=== PATIENT | male | born 1930 | race Two or more races ===

== ENCOUNTER 2016-11-01 09:54 | Inpatient (IN) | payer OTHER ==
--- NOTE | 2016-11-01 09:58 | PDOC ---
History of Present Illness - General History Source: Patient, EMS, Pharmacist Manager Used (senior quality [id number]) Exam Limitations: No Limitations, Language Barrier (serbian speaking ) - History of Present Illness Initial Comments: 11/01/16 10:40 The patient is a 86 year old serbian speaking male with significant past medical history of copd/asthma (no h/o of admission and/or intubations in the past 3 months), hypertension, hyperlipidemia, CHF, arthritis, GERD, IBS and hypothyroidism who presents to the ED BIBA from home for 3 days of worsening SOB. History was provided via [employer] ([id number]). Patient reports he developed a productive cough with yellowish sputum and sore throat 5 days ago. He developed SOB 3 days ago that worsen yesterday. Patient reports pleuritic chest pain and some epigastric pain when he coughs. He also has complaints of decreased appetite, subjective fever and chills. Denies lightheadedness, diaphoresis, palpitations, leg swelling, nausea, vomiting, or diarrhea. States using his inhaler over the weekend with no relief. Patient was given a albuterol and ipratropium treatment by medics with improvement, but still has some conversational dyspnea. Upon arrival, patient was noted to have a pulse ox of 90 during triage. Patient recently moved to [place] to be closer to his son and his prior medical records are at [facility] in the [facility] where he use to seek medical attention. Allergies: NKDA Social History: No alcohol, tobacco, or drug use reported. Past Surgical History: pacemaker PCP: n/a <Katie Landry - Last Filed: 11/01/16 10:53> <Asia Ozuna - Last Filed: 11/01/16 12:03> - General Stated Complaint: SOB Time Seen by Provider: 11/01/16 09:58 Past History <Katie Landry - Last Filed: 11/01/16 10:53> <Asia Ozuna - Last Filed: 11/01/16 12:03> - Past Medical History Allergies/Adverse Reactions: Allergies Allergy/AdvReac Type Severity Reaction Status Date / Time No Known Allergies Allergy Unverified 11/01/16 10:10 Home Medications: Ambulatory Orders Albuterol Sulfate Inhaler - [Ventolin Hfa Inhaler -] 1 - 2 inh PO QID PRN Amlodipine Besylate [Norvasc -] 10 mg PO DAILY 11/01/16 Furosemide [Lasix] 20 mg PO DAILY 11/01/16 Gabapentin 100 mg PO DAILY 11/01/16 Ibuprofen/Famotidine [Duexis 800-26.6 mg Tablet] 1 each PO DAILY 11/01/16 Levothyroxine [Synthroid -] 25 mcg PO DAILY 11/01/16 Montelukast Na [Singulair -] 10 mg PO HS 11/01/16 Ramipril 10 mg PO DAILY 11/01/16 Ranitidine HCl [Zantac] 150 mg PO DAILY 11/01/16 Salmeterol/Fluticasone [Advair 250Mcg/50Mcg -] 1 inh IH BID 11/01/16 Simvastatin 10 mg PO DAILY 11/01/16 Review of Systems - Review of Systems Able to Perform ROS?: Yes Comments:: 11/01/16 10:40 GENERAL/CONSTITUTIONAL: +subjective fever, chills, decreased appetite No weakness. HEAD, EYES, EARS, NOSE AND THROAT: No change in vision. No ear pain or discharge. No sore throat. CARDIOVASCULAR: +pleuritic chest pain, shortness of breath RESPIRATORY: +productive cough with yellow sputum No hemoptysis. GASTROINTESTINAL: epigastric pain No nausea, vomiting, diarrhea or constipation. GENITOURINARY: No dysuria, frequency, or change in urination. MUSCULOSKELETAL: No joint or muscle swelling or pain. No neck or back pain. SKIN: No rash NEUROLOGIC: No headache, vertigo, loss of consciousness, or change in strength/ sensation. ENDOCRINE: No increased thirst. No abnormal weight change. HEMATOLOGIC/LYMPHATIC: No anemia, easy bleeding, or history of blood clots. ALLERGIC/IMMUNOLOGIC: No hives or skin allergy. <Katie Landry - Last Filed: 11/01/16 10:53> *Physical Exam - Vital Signs Last Vital Signs Temp Pulse Resp BP Pulse Ox 98.7 F 101 H 24 143/73 92 L 11/01/16 10:02 11/01/16 10:02 11/01/16 10:02 11/01/16 10:02 11/01/16 10:02 - Physical Exam Comments: 11/01/16 10:40 GENERAL: Awake, alert, and fully oriented, in no acute distress HEAD: No signs of trauma EYES: PERRLA, EOMI, sclera anicteric, conjunctiva clear ENT: Auricles normal inspection, hearing grossly normal, nares patent, oropharynx clear without exudates. Posterior pharynx slightly erythematous, no exudates. NECK: Normal ROM, supple, no lymphadenopathy, JVD, or masses LUNGS: Mild respiratory distress. Conversational dyspnea. Wheezing diffusely. Rhonchi on left. Accessory muscle use. HEART: Regular rate and rhythm, normal S1 and S2, no murmurs, rubs or gallops ABDOMEN: Soft, nontender, normoactive bowel sounds. No guarding, no rebound. No masses EXTREMITIES: Normal range of motion, no edema. No clubbing or cyanosis. No cords, erythema, or tenderness NEUROLOGICAL: Cranial nerves II through XII grossly intact. Normal speech, normal gait SKIN: Warm, Dry, normal turgor, no rashes or lesions noted. Normal capillary refill. <Katie Landry - Last Filed: 11/01/16 10:53> Heart Score/ECG Review - ECG Intrepretation Comment:: 11/01/16 11:13 sinus at 81 w 1st degree av block, q waves anteriorly that are age indeterminate , no acute st/t wave findings <Asia Ozuna - Last Filed: 11/01/16 12:03> ED Treatment Course - RADIOLOGY Radiograph Interpretation: 11/01/16 10:54 RAD/CHEST X-RAY PORTABLE Radiologist's Impression: Right lower lung consolidation. No effacement of the right diaphragm blunting of the right costophrenic angle. Unremarkable contour of the cardiomediastinal silhouette. No airspace opacities are seen in the left lung. Left pacemaker with 2 intact leads. No evidence of pneumothorax, or large pleural effusion. Vascular congestive changes noted in the right lung. Impression. Right lower lobe consolidation. Congestive changes - right lung. No pneumothorax, or large pleural effusion is seen - Medications Given in the ED: ED Medications Discontinued Medications Generic Name Dose Route Start Last Admin Trade Name Freq PRN Reason Stop Dose Admin Albuterol/Ipratropium 1 amp 11/01/16 10:17 11/01/16 10:24 Duoneb - NEB 11/01/16 10:18 1 amp ONCE ONE Administration Methylprednisolone Sodium Succinate 125 mg 11/01/16 10:17 11/01/16 10:36 Solu-Medrol - IVPB 11/01/16 10:18 125 mg ONCE ONE Administration Sodium Chloride 1,000 ml 11/01/16 10:18 11/01/16 10:36 Normal Saline - IV 11/01/16 10:19 1,000 ml ONCE ONE Administration <Katie Landry - Last Filed: 11/01/16 10:53> - LABORATORY CBC & Chemistry Diagram: 11/01/16 10:36 11/01/16 10:36 <Asia Ozuna - Last Filed: 11/01/16 12:03> Medical Decision Making - Medical Decision Making 11/01/16 11:05 a/p: 86yo male with 5 days of cough/wheezing/sob -concern for asthma exacerbation assoc with pna -no recent hospitalizations in 90 days -will send labs, cultures -xray -court monitor -ekg -will start abx for cap -pt will need admission given hypoxia on RA and new need for o2. -abg 11/01/16 11:07 pt with RLL consolidation- abx started family at the bedside and updated on status -pt updated on status and agrees to stay 11/01/16 11:08 pt with hypoxemia on abg - will give another neb and continue supplemental o2 11/01/16 1130 pt with RLL infiltrate, hypoxemia, elevated WBC, resp distress will need admission. call placed to the hospitalist 11/01/16 12:00 case discussed with hospitalist, accepts pt to service under Dr. Barker to tele <Asia Ozuna - Last Filed: 11/01/16 12:03> *DC/Admit/Observation/Transfer - Attestations Scribe Attestion: 11/01/16 10:40 Documentation prepared by Katie Landry, acting as medical records auditor for Asia Ozuna DO, MD/. <Katie Landry - Last Filed: 11/01/16 10:53> - Discharge Dispostion Admit: Yes - Attestations Physician Attestion: 11/01/16 11:09 I, Dr. Asia Ozuna DO, attest that this document has been prepared under my direction and personally reviewed by me in its entirety. I further attest, that it accurately reflects all work, treatment, procedures and medical decision -making performed by me. <Asia Ozuna - Last Filed: 11/01/16 12:03> Diagnosis at time of Disposition: Asthma exacerbation, Hypoxemia Pneumonia Qualifiers: Pneumonia type: due to unspecified organism Laterality: right Lung location: lower lobe of lung Qualified Code(s): J18.1 - Lobar pneumonia, unspecified organism - Discharge Dispostion Condition at time of disposition: Guarded - Referrals Referrals: STAFF,NOT ON [Primary Care Provider] -
[2016-11-01] MEDS ORDERED: ALBUTEROL SO4 2.5/IPRATROPIUM 0.5 INH SOL 3 ML VIAL.NEB. NEB ONE ×3 (10:06→11:14)
[2016-11-01] MEDS ORDERED: methylPREDNISolone NA SUCC 125 MG/2 ML VIAL IVPB ONE (10:17)
[2016-11-01] MEDS ORDERED: SODIUM CHLORIDE 0.9% 1000 ML INFUS.BAG IV ONE (10:18)
[2016-11-01] MEDS ORDERED: methylPREDNISolone NA SUCC 125 MG/2 ML VIAL ONE (10:26)
[2016-11-01] MEDS ORDERED: AZITHROMYCIN IVPB 500 MG in DEXTROSE 5%-WATER - 250 ML IVPB ONE (10:46)
[2016-11-01 10:52] LABS: ARTERIAL BLD GAS O2 SATURATION 90.9 % (90-98.9); ARTERIAL BLOOD GAS BASE EXCESS 0.9 meq/l (-2-2); ARTERIAL BLOOD GAS pH 7.49 (7.35-7.45)
[2016-11-01 10:53] LABS: ARTERIAL BLOOD GAS PO2 58.5 mmHg (68-100)
[2016-11-01 10:54] LABS: ALLENS TEST POSITIVE; ART PUNCT SITE RIGHT RADIAL; LPM/O2% 21%; METHEMOGLOBIN 0.7 % (0.4-1.5); PT. ON O2? NO
[2016-11-01] MEDS ORDERED: AZITHROMYCIN IVPB 250 ML IVPB ONE (10:55)
[2016-11-01 11:00] LABS: BASOPHIL 0.1 % (0-2.0); EOSINOPHIL 0.2 % (0-4.5); MCH 29.2 pg (25.7-33.7); MCHC 33.3 g/dl (32.0-35.9); MEAN CELL VOLUME 87.7 fl (80-96); MEAN PLT VOLUME 6.9 fl (7.5-11.1); NEUTROPHILS 88.5 % (42.8-82.8); PLATELET COUNT 283 K/MM3 (134-434); WHITE BLOOD COUNT 16.2 K/mm3 (4.0-10.0)
[2016-11-01 11:26] LABS: ALBUMIN 3.3 g/dl (3.4-5.0); ANION GAP 12 (8-16); CALCIUM 8.7 mg/dL (8.5-10.1); CO2 25 mmol/L (21-32); GLUCOSE,RANDOM 97 mg/dL (74-106); SGOT/AST 20 U/L (15-37); SGPT/ALT 19 U/L (12-78)
[2016-11-01 11:32] LABS: ALK PHOS 76 U/L (45-117); CPK 56 IU/L (39-308); TOT PROT 6.6 g/dl (6.4-8.2); TROPONIN I < 0.02 ng/ml (0.00-0.05)
--- NOTE | 2016-11-01 12:39 | HP ---
CHIEF COMPLAINT: Shortness of breath PCP: Dr. Molnia ([facility]) HISTORY OF PRESENT ILLNESS: This is an 86 year old male with a history of asthma /COPD (never hospitalized, on daily Advair and Singulair), PPM (?heart block?, patient states he was having "slow heart rate and dizziness" prior to placement) , and HTN who presents complaining of worsening shortness of breath and productive cough since Sunday. ER course was notable for: (1) CXR: RLL consolidation, vascular congestive changes (2) WBC 16.2 (3) Hypoxic respiratory failure with respiratory alkalosis (ABG on 2L O2 7.49/ 30.5/58.5/23) (4) Na 127 Recent Travel: None PAST MEDICAL HISTORY: As above PAST SURGICAL HISTORY: Pacemaker placement June 2016 Social History: Lives alone, independent in ADLs. Retired tailor from the [employer] Smoking: Former "heavy smoker", quit 30 yrs ago Alcohol: Social Drugs: None Family History: Non-contributory to this admission Allergies No Known Allergies Allergy (Unverified 11/01/16 10:10) HOME MEDICATIONS: Home Medications Medication Instructions Recorded Albuterol Sulfate Inhaler - 1 - 2 inh PO QID PRN 11/01/16 [Ventolin Hfa Inhaler -] Amlodipine Besylate [Norvasc -] 10 mg PO DAILY 11/01/16 Furosemide [Lasix] 20 mg PO DAILY 11/01/16 Gabapentin 100 mg PO DAILY 11/01/16 Ibuprofen/Famotidine [Duexis 1 each PO DAILY 11/01/16 800-26.6 mg Tablet] Levothyroxine [Synthroid -] 25 mcg PO DAILY 11/01/16 Montelukast Na [Singulair -] 10 mg PO HS 11/01/16 Ramipril 10 mg PO DAILY 11/01/16 Ranitidine HCl [Zantac] 150 mg PO DAILY 11/01/16 Salmeterol/Fluticasone [Advair 1 inh IH BID 11/01/16 250Mcg/50Mcg -] Simvastatin 10 mg PO DAILY 11/01/16 REVIEW OF SYSTEMS CONSTITUTIONAL: Generalized weakness, malaise, loss of appetite Absent: fever, chills, weight change HEENT: Absent: rhinorrhea, nasal congestion, throat pain, throat swelling, difficulty swallowing, mouth swelling, ear pain, eye pain, visual changes CARDIOVASCULAR: Chest pain with coughing only Absent: chest pain, syncope, palpitations, irregular heart rate, lightheadedness , peripheral edema RESPIRATORY: Productive cough, wheezing, shortness of breath since Sunday Absent: stridor, hemoptysis GASTROINTESTINAL: Diffuse abdominal pain Absent: nausea, vomiting, diarrhea, constipation, melena, hematochezia GENITOURINARY: Absent: dysuria, frequency, urgency, hesitancy, hematuria, flank pain, genital pain MUSCULOSKELETAL: Absent: myalgia, arthralgia, joint swelling, back pain, neck pain SKIN: Absent: rash, itching, pallor HEMATOLOGIC/IMMUNOLOGIC: Absent: easy bleeding, easy bruising, lymphadenopathy, frequent infections ENDOCRINE: Absent: unexplained weight gain, unexplained weight loss, heat intolerance, cold intolerance NEUROLOGIC: Absent: headache, focal weakness or paresthesias, dizziness, unsteady gait, seizure, mental status changes, bladder or bowel incontinence PSYCHIATRIC: Absent: anxiety, depression, suicidal or homicidal ideation, hallucinations. PHYSICAL EXAMINATION GENERAL: Awake, alert, and fully oriented, in no acute distress. EYES: Pupils equal, round and reactive to light, extraocular movements intact, sclera anicteric, conjunctiva clear. No lid lag. EARS, NOSE, THROAT: Ears normal, nares patent, oropharynx clear without exudates. Moist mucous membranes. NECK: Normal range of motion, supple without lymphadenopathy, JVD, or masses. LUNGS: Tachypneic without accessory muscle use. Diffuse expiratory wheezing with poor air entry bilaterally. HEART: Regular rate and rhythm, normal S1 and S2 without murmur, rub or gallop. ABDOMEN: Soft, nontender, not distended, normoactive bowel sounds, no guarding, no rebound, no masses. No hepatomegaly or splenomegaly. MUSCULOSKELETAL: Normal range of motion at all joints. No bony deformities or tenderness. No CVA tenderness. UPPER EXTREMITIES: 2+ pulses, warm, well-perfused. No cyanosis. No clubbing. No peripheral edema. LOWER EXTREMITIES: 2+ pulses, warm, well-perfused. No calf tenderness. No peripheral edema. NEUROLOGICAL: Cranial nerves II-XII intact. Normal speech. Normal gait. PSYCHIATRIC: Cooperative. Good eye contact. Appropriate mood and affect. SKIN: Warm, dry, normal turgor, no rashes or lesions noted, normal capillary refill. ASSESSMENT/PLAN: 86 year old male with hypoxemic respiratory failure secondary to asthma/COPD exacerbation with RLL PNA. Problem List - Problem (1) Asthma exacerbation Assessment/Plan: -Supplemental O2 as needed -Continue standing DuoNebs -Solu-Medrol 40mg IVPB q8h, taper as tolerated -Continue Singulair -Pulmonary evaluation Code(s): J45.901 - UNSPECIFIED ASTHMA WITH (ACUTE) EXACERBATION (2) Pneumonia Assessment/Plan: -Community-acquired -Ceftriaxone/Azithromycin -Urine antigens -Sputum culture -Follow up blood cultures Code(s): J18.9 - PNEUMONIA, UNSPECIFIED ORGANISM Qualifiers: Pneumonia type: due to unspecified organism Laterality: right Lung location: lower lobe of lung Qualified Code(s): J18.1 - Lobar pneumonia, unspecified organism (3) Abdominal pain Assessment/Plan: -Diffuse pain, no focal tenderness, no change in bladder or bowel habits -Consider CTAP when bronchospasm improved Code(s): R10.9 - UNSPECIFIED ABDOMINAL PAIN (4) HTN (hypertension) Assessment/Plan: -At goal -Continue Norvasc Code(s): I10 - ESSENTIAL (PRIMARY) HYPERTENSION (5) Acute exacerbation of CHF (congestive heart failure) Assessment/Plan: -Increase Lasix to 20mg IVP daily -Strict I/O -Daily weights Code(s): I50.9 - HEART FAILURE, UNSPECIFIED (6) Hyponatremia Assessment/Plan: -Suspect hypervolemic -Send serum osmolality -Lasix as above Code(s): E87.1 - HYPO-OSMOLALITY AND HYPONATREMIA (7) DVT prophylaxis Assessment/Plan: -Lovenox 40mg sq daily -Early ambulation Code(s): [id number] - Visit type - Emergency Visit Emergency Visit: Yes ED Registration Date: 11/01/16 Care time: The patient presented to the Emergency Department on the above date and was hospitalized for further evaluation of their emergent condition. - New Patient This patient is new to me today: Yes Date on this admission: 11/01/16 - Critical Care Critical Care patient: No
[2016-11-01] MEDS ORDERED: CEFTRIAXONE 50 ML ONE (12:52)
[2016-11-01] MEDS ORDERED: ACETAMINOPHEN WITH CODEINE 300MG/30MG TABLET PO ONE (13:02)
[2016-11-01] MEDS: FUROSEMIDE 40 MG/4 ML INJECTABLE VIAL IVPUSH SCH (13:13)
[2016-11-01] MEDS: CEFTRIAXONE 1 GM in DEXTROSE 5%-WATER - 50 ML IVPB SCH (13:13)
[2016-11-01] MEDS ORDERED: ONDANSETRON 4 MG/2 ML VIAL IVPB PRN (13:17)
[2016-11-01] MEDS ORDERED: ACETAMINOPHEN 325 MG TABLET (FP) PO PRN (13:17)
[2016-11-01] MEDS: ALBUTEROL SO4 2.5/IPRATROPIUM 0.5 INH SOL 3 ML VIAL.NEB. NEB SCH ×3 (14:00→22:05)
[2016-11-01 14:03] VITALS: BMI 26.2
[2016-11-01] MEDS ORDERED: ACETAMINOPHEN WITH CODEINE 300MG/30MG TABLET ONE (14:03)
--- NOTE | 2016-11-01 14:57 | EKG ---
Test Reason : Blood Pressure : / mmHG Vent. Rate : 081 BPM Atrial Rate : 094 BPM P-R Int : 262 ms QRS Dur : 080 ms QT Int : 340 ms P-R-T Axes : 088 031 045 degrees QTc Int : 394 ms SINUS RHYTHM WITH MARKED SINUS ARRHYTHMIA WITH 1ST DEGREE A-V BLOCK ANTEROSEPTAL INFARCT , AGE UNDETERMINED ABNORMAL ECG NO PREVIOUS ECGS AVAILABLE Confirmed by ELIER MEDEIROS MD ([id number]) on 11/01/2016 2:56:53 PM Referred By: Confirmed By:ELIER MEDEIROS MD
[2016-11-01] MEDS: methylPREDNISolone NA SUCC 40 MG/1 ML VIAL IVPB SCH (17:47)
[2016-11-01] MEDS ORDERED: PATIENT'S OWN MEDICATION (NON-FORMULARY) (Salmeterol/Fluticasone [Advair 250mcg/50mcg -] 1 IH SCH (22:00)
[2016-11-01] MEDS ORDERED: BUDESONIDE/FORMETEROL FUMARATE 80/4.5 mcg INHALER IH SCH (22:00)
[2016-11-01] MEDS: MONTELUKAST NA 10 MG TABLET PO SCH (22:41)
[2016-11-02] MEDS: methylPREDNISolone NA SUCC 40 MG/1 ML VIAL IVPB SCH ×3 (00:59→17:09)
[2016-11-02] MEDS: ALBUTEROL SO4 2.5/IPRATROPIUM 0.5 INH SOL 3 ML VIAL.NEB. NEB SCH ×6 (01:40→22:10)
[2016-11-02] MEDS: LEVOTHYROXINE NA 25 MCG TABLET (FP) PO SCH (06:01)
[2016-11-02 08:15] LABS: MCH 29.2 pg (25.7-33.7); MCHC 34.1 g/dl (32.0-35.9); MEAN CELL VOLUME 85.8 fl (80-96); MEAN PLT VOLUME 6.9 fl (7.5-11.1); PLATELET COUNT 274 K/MM3 (134-434); RDW 13.8 % (11.9-15.9); WHITE BLOOD COUNT 17.1 K/mm3 (4.0-10.0)
[2016-11-02 09:09] LABS: ALK PHOS 71 U/L (45-117); ANION GAP 13 (8-16); BILIRUBIN,TOTAL 0.6 mg/dL (0.2-1.0); CALCIUM 8.8 mg/dL (8.5-10.1); CO2 23 mmol/L (21-32); GLUCOSE,RANDOM 170 mg/dL (74-106); SGOT/AST 19 U/L (15-37); SGPT/ALT 21 U/L (12-78); TOT PROT 6.4 g/dl (6.4-8.2)
[2016-11-02] MEDS ORDERED: FUROSEMIDE 20 MG TABLET (FP) PO SCH (10:00)
[2016-11-02] MEDS ORDERED: DEXTROSE 5%-WATER - 50 ML IVPB ONE (10:28)
[2016-11-02] MEDS ORDERED: cefTRIAXone SODIUM 1 GM VIAL ONE (10:28)
[2016-11-02] MEDS: RANITIDINE HCL 150 MG TABLET (FP) PO SCH (10:36)
[2016-11-02] MEDS: GABAPENTIN 100 MG CAPSULE (FP) PO SCH (10:36)
[2016-11-02] MEDS: RAMIPRIL 5 MG CAPSULE (FP) PO SCH (10:36)
[2016-11-02] MEDS: FUROSEMIDE 40 MG/4 ML INJECTABLE VIAL IVPUSH SCH (10:36)
[2016-11-02] MEDS: ENOXAPARIN NA (PORCINE) 40 MG/0.4 ML DISP.SYRIN SQ SCH (10:36)
[2016-11-02] MEDS: amLODIPine BESYLATE 10 MG TABLET (FP) PO SCH (10:36)
[2016-11-02] MEDS: AZITHROMYCIN IVPB 250 MG in DEXTROSE 5%-WATER - 250 ML IVPB SCH (10:37)
[2016-11-02] MEDS: CEFTRIAXONE 1 GM in DEXTROSE 5%-WATER - 50 ML IVPB SCH (10:37)
--- NOTE | 2016-11-02 11:27 | CON.PULM ---
Consult Consult Specialty:: PULMONARY Referred by:: KULWANT Altman Reason for Consultation:: shortness of breath - History of Present Illness Chief Complaint: shortness of breath History of Present Illness: 86yo male with h/o HTN, hyperlipidemia, COPD/asthma, CHF, GERD, IBS, hypothyroidism who was admitted with worsening shortness of breath x 3 days. He reports a cough productive of yellow sputum but denies wheezing. No chest pain or palpitations. No nausea, vomiting or diarrhea. No leg swelling. Found to be hyponatremic and with a RLL infiltrate on CXR. He is a remote smoker, quit 35 years ago and is maintained on Advair, Singulair and Ventolin. - History Source History Provided By: Patient, Medical Record Limitations to Obtaining History: Language Barrier - Past Medical History Cardio/Vascular: Yes: CHF, HTN, Hyperlipdemia Pulmonary: Yes: Asthma, COPD Gastrointestinal: Yes: Inflamatory Bowel Disease Endocrine: Yes: Hypothyroidism - Alcohol/Substance Use Hx Alcohol Use: No - Smoking History Smoking history: Former smoker Have you smoked in the past 12 months: No Home Medications - Allergies Allergies/Adverse Reactions: Allergies Allergy/AdvReac Type Severity Reaction Status Date / Time No Known Allergies Allergy Unverified 11/01/16 10:10 - Home Medications Home Medications: Ambulatory Orders Albuterol Sulfate Inhaler - [Ventolin Hfa Inhaler -] 1 - 2 inh PO QID PRN Amlodipine Besylate [Norvasc -] 10 mg PO DAILY 11/01/16 Furosemide [Lasix] 20 mg PO DAILY 11/01/16 Gabapentin 100 mg PO DAILY 11/01/16 Ibuprofen/Famotidine [Duexis 800-26.6 mg Tablet] 1 each PO DAILY 11/01/16 Levothyroxine [Synthroid -] 25 mcg PO DAILY 11/01/16 Montelukast Na [Singulair -] 10 mg PO HS 11/01/16 Ramipril 10 mg PO DAILY 11/01/16 Ranitidine HCl [Zantac] 150 mg PO DAILY 11/01/16 Salmeterol/Fluticasone [Advair 250Mcg/50Mcg -] 1 inh IH BID 11/01/16 Simvastatin 10 mg PO DAILY 11/01/16 Review of Systems - Review of Systems Constitutional: denies: Chills, Fever Eyes: denies: Recent Change in Vision HENT: denies: Nasal Congestion, Throat Pain Neck: denies: Stiffness, Tenderness Cardiovascular: reports: Shortness of Breath. denies: Chest Pain, Edema, Palpitations Respiratory: reports: Cough. denies: Hemoptysis, Wheezing Gastrointestinal: denies: Abdominal Pain, Diarrhea, Vomiting Genitourinary: denies: Dysuria, Hematuria Neurological: denies: Dizziness, Headache Endocrine: denies: Unexplained Weight Loss Physical Exam Vital Sings: Vital Signs Temperature 98.2 F 11/02/16 08:15 Pulse Rate 76 11/02/16 08:15 Respiratory Rate 16 11/02/16 08:15 Blood Pressure 114/68 11/02/16 08:15 O2 Sat by Pulse Oximetry (%) 96 11/01/16 20:49 Constitutional: Yes: Calm Eyes: Yes: Conjunctiva Clear, EOM Intact HENT: Yes: Atraumatic, Normocephalic Neck: Yes: Supple, Trachea Midline Cardiovascular: Yes: Regular Rate and Rhythm Respiratory: Yes: Rales (right base), Rhonchi, Wheezes ...Clubbing: No Gastrointestinal: Yes: Normal Bowel Sounds, Soft. No: Tenderness Edema: No Neurological: Yes: Alert, Oriented Labs: CBC, BMP 11/02/16 07:00 11/02/16 07:00 ABG Results ABG pH 7.49 (7.35-7.45) H 11/01/16 10:50 ABG pCO2 at Pt Temp 30.5 mmHg (35-45) L 11/01/16 10:50 ABG pO2 at Pt Temp 58.5 mmHg (68-100) L 11/01/16 10:50 ABG HCO3 23.0 meq/L (22-26) 11/01/16 10:50 ABG O2 Sat (Measured) 90.9 % (90-98.9) 11/01/16 10:50 ABG O2 Content 16.5 % vol (15-22) 11/01/16 10:50 ABG Base Excess 0.9 meq/l (-2-2) 11/01/16 10:50 Imaging - Results Chest X-ray: Report Reviewed, Image Reviewed (RLL infiltrate) Problem List - Problems (1) Pneumonia Code(s): J18.9 - PNEUMONIA, UNSPECIFIED ORGANISM Qualifiers: Pneumonia type: due to unspecified organism Laterality: right Lung location: lower lobe of lung Qualified Code(s): J18.1 - Lobar pneumonia, unspecified organism (2) Asthma exacerbation Code(s): J45.901 - UNSPECIFIED ASTHMA WITH (ACUTE) EXACERBATION (3) COPD exacerbation Code(s): J44.1 - CHRONIC OBSTRUCTIVE PULMONARY DISEASE W (ACUTE) EXACERBATION (4) CHF (congestive heart failure) Code(s): I50.9 - HEART FAILURE, UNSPECIFIED (5) HTN (hypertension) Code(s): I10 - ESSENTIAL (PRIMARY) HYPERTENSION (6) Hyponatremia Code(s): E87.1 - HYPO-OSMOLALITY AND HYPONATREMIA Assessment/Plan Pneumonia Acute Asthma/COPD Exacerbation Hyponatremia HTN CHF Hyperlipidemia Hypothyroidism - agree with antibiotic coverage - f/u cultures - medrol at current dose - inhaled bronchodilators standing and PRN - O2 to keep SpO2 >90% - lasix - monitor urine output, creatinine - send serum osms, urine lytes - DVT prophylaxis Thank you for this consult Hernandez Lopez MD
[2016-11-02] MEDS ORDERED: SODIUM CHLORIDE 1,000 ML IV STA (13:25)
--- NOTE | 2016-11-02 14:27 | PN ---
Teaching Attending Note Name of Resident: Angel Zimmerman ATTENDING PHYSICIAN STATEMENT I saw and evaluated the patient. I reviewed the resident's note and discussed the case with the resident. I agree with the resident's findings and plan as documented. SUBJECTIVE:states breathing is improved but still has dyspnea. has nonproductive cough. abdominal pain resolved. denies recent travel or changes to medications. never been hospitalized OBJECTIVE: Last Vital Signs Temp Pulse Resp BP Pulse Ox 98.2 F 76 16 114/68 96 11/02/16 08:15 11/02/16 08:15 11/02/16 09:00 11/02/16 08:15 11/02/16 09:00 General NAD, dehydrated CV S1 S2 RRR no murmur/rub/gallop Lungs diffuse wheezing decreased inspiratory effort Abdomen soft NT/ND Extremities no pedal edema ASSESSMENT AND PLAN: 86yo M with PMH COPD, hypothyroid, PPM and HTN presented to the ER with SOB 1. Sepsis due to RLL PNA- clinically improved. concern for legionella ( abdominal pain and hyponatremia) no risk factors. on Ceftriaxone/Azithromycin day 2. nebs prn f/u Cx, legionella ag 2. Acute hypoxic respiratory distress- due to PNA and COPD exacerbation. currently saturating 98% on RA. on medrol 40mg Q8H, cont current steroid dosing at this time. inhalers and nebs. supplemental oxygen as needed. pulmonary on board 3. Hyponatremia- clinically appears dehydrated. appeared volume overloaded on admission and was given lasix. give 1 L NS bolus. will repeat labs. check serum osm 4. HTN- controlled. cont ramipril and norvasc 5. hypothyroid- cont LT4 6. DVT ppx- lovenox
--- NOTE | 2016-11-02 15:58 | PN ---
Physical Exam: SUBJECTIVE: Patient seen and examined at bedside. Patient states that he feels better today than he did yesterday, but still complains of shortness of breath today. OBJECTIVE: Vital Signs Period Temp Pulse Resp BP Sys/Dumont Pulse Ox Last 24 Hr 97.1 F-98.2 F 76-90 16-20 114-150/56-68 96-96 GENERAL: The patient is awake, alert, and fully oriented, in no acute distress. HEAD: Normal with no signs of trauma. EYES: extraocular movements intact, sclera anicteric, conjunctiva clear. No ptosis. NECK: Trachea midline, full range of motion, supple. LUNGS: Breath sounds equal, clear to auscultation bilaterally, no wheezes, no crackles, no accessory muscle use. HEART: Regular rate and rhythm, S1, S2 without murmur, rub or gallop. ABDOMEN: Soft, nontender, nondistended, normoactive bowel sounds, no guarding, no rebound. EXTREMITIES: 2+ pulses, warm, well-perfused, no edema. NEUROLOGICAL: Cranial nerves II through X grossly intact. Normal speech, gait not observed. PSYCH: Normal mood, normal affect. SKIN: Warm, dry, normal turgor, no rashes or lesions noted Laboratory Results - last 24 hr 11/01/16 11/02/16 11/02/16 16:45 07:00 07:00 WBC 17.1 H RBC 4.12 Hgb 12.0 Hct 35.3 L MCV 85.8 MCH 29.2 MCHC 34.1 RDW 13.8 Plt Count 274 MPV 6.9 L Neutrophils % 95.0 H Lymphocytes % 2.9 L D Monocytes % 2.1 L Eosinophils % 0.0 D Basophils % 0.0 Sodium 124 L* Potassium 4.0 Chloride 88 L Carbon Dioxide 23 Anion Gap 13 BUN 22 H D Creatinine 1.0 Creat Clearance w eGFR > 60 Random Glucose 170 H D Serum Osmolality 278 Calcium 8.8 Magnesium 2.0 Total Bilirubin 0.6 D AST 19 ALT 21 Alkaline Phosphatase 71 Total Protein 6.4 Albumin 3.0 L Active Medications Generic Name Dose Route Start Last Admin Trade Name Freq PRN Reason Stop Dose Admin Acetaminophen 650 mg 11/01/16 13:17 Tylenol - PO Q4H PRN FEVER OR PAIN Albuterol/Ipratropium 1 amp 11/01/16 13:15 11/02/16 13:56 Duoneb - NEB 1 amp Q4H ANA M Administration Amlodipine Besylate 10 mg 11/02/16 10:00 11/02/16 10:36 Norvasc - PO 10 mg DAILY ANA M Administration Atorvastatin Calcium 10 mg 11/02/16 22:00 Lipitor - PO HS ANA M Enoxaparin Sodium 40 mg 11/02/16 10:00 11/02/16 10:36 Lovenox - SQ 40 mg DAILY ANA M Administration Furosemide 20 mg 11/03/16 10:00 Lasix - PO DAILY ANA M Gabapentin 100 mg 11/02/16 10:00 11/02/16 10:36 Neurontin - PO 100 mg DAILY ANA M Administration Ceftriaxone Sodium 1 gm/ 50 mls @ 100 mls/hr 11/01/16 12:45 11/02/16 10:37 Dextrose IVPB 100 mls/hr DAILY ANA M Administration Azithromycin 250 mg/ Dextrose 250 mls @ 250 mls/hr 11/02/16 10:00 11/02/16 10: 37 IVPB 11/05/16 10:59 250 mls/hr DAILY ANA M Administration Levothyroxine Sodium 25 mcg 11/02/16 07:00 11/02/16 06:01 Synthroid - PO 25 mcg ACBK ANA M Administration Methylprednisolone Sodium Succinate 40 mg 11/01/16 18:00 11/02/16 10:36 Solu-Medrol - IVPB 40 mg Q8H-IV ANA M Administration Montelukast Sodium 10 mg 11/01/16 22:00 11/01/16 22:41 Singulair - PO 10 mg HS ANA M Administration Ondansetron HCl 4 mg 11/01/16 13:17 Zofran Injection IVPB Q6H PRN NAUSEA Ramipril 10 mg 11/02/16 10:00 11/02/16 10:36 Altace - PO 10 mg DAILY ANA M Administration Ranitidine HCl 150 mg 11/02/16 10:00 11/02/16 10:36 Zantac - PO 150 mg DAILY ANA M Administration ASSESSMENT/PLAN: #Acute asthma/ COPD exacerbation 2/2 pneumonia -Supplemental O2 as needed -Continue standing DuoNebs -Solu-Medrol 40mg IVPB q8h -Continue Singulair -Pulmonary reccs appreciated #Sepsis 2/2 Community acquired pneumonia -Ceftriaxone/Azithromycin -Urine for legionella negative -Sputum culture -Follow up blood cultures #hyponatriemia -serum sodium 124 -bolused 1L NS; rpt sodium 125 -continue to monitor; repeat labs in AM -serum mOsm sent #Abdominal pain - resolved -Diffuse pain, no focal tenderness, no change in bladder or bowel habits -nontender today # HTN- controlled -Continue Norvasc #Acute exacerbation of CHF - Lasix 20mg PO daily -Strict I/O -Daily weights #FEN -1 l bolus today, no other fluids -monitor lytes -Sodium controlled diet #Prophylaxsis -Lovenox 40mg sq daily -Early ambulation #Dispo -admitted for the treatment of Asthma/COPD exacerbation 2/2 CAP Problem List - Problems (1) Abdominal pain Code(s): R10.9 - UNSPECIFIED ABDOMINAL PAIN (2) CHF (congestive heart failure) Code(s): I50.9 - HEART FAILURE, UNSPECIFIED (3) COPD exacerbation Code(s): J44.1 - CHRONIC OBSTRUCTIVE PULMONARY DISEASE W (ACUTE) EXACERBATION (4) HTN (hypertension) Code(s): I10 - ESSENTIAL (PRIMARY) HYPERTENSION (5) Hyponatremia Code(s): E87.1 - HYPO-OSMOLALITY AND HYPONATREMIA (6) Pneumonia Code(s): J18.9 - PNEUMONIA, UNSPECIFIED ORGANISM Qualifiers: Pneumonia type: due to unspecified organism Laterality: right Lung location: lower lobe of lung Qualified Code(s): J18.1 - Lobar pneumonia, unspecified organism Visit type - Emergency Visit Emergency Visit: Yes ED Registration Date: 11/01/16 Care time: The patient presented to the Emergency Department on the above date and was hospitalized for further evaluation of their emergent condition. - New Patient This patient is new to me today: Yes Date on this admission: 11/02/16 - Critical Care Critical Care patient: No
[2016-11-02 15:59] LABS: ANION GAP 14 (8-16); CO2 20 mmol/L (21-32); CREATININE 0.9 mg/dL (0.7-1.3); GLUCOSE,RANDOM 164 mg/dL (74-106)
[2016-11-02 22:20] LABS: OSMOLALITY,SERUM 279 mosm/kg (278-305)
[2016-11-02] MEDS: MONTELUKAST NA 10 MG TABLET PO SCH (22:35)
[2016-11-02] MEDS: ATORVASTATIN CA 10 MG TABLET (FP) PO SCH ×2 (22:35→23:03)
[2016-11-02] MEDS ORDERED: ARTIFICIAL TEARS (POLYVINYL ALCOHOL 1.4%) OPTH DROPS OU ONE (23:10)
[2016-11-03] MEDS: methylPREDNISolone NA SUCC 40 MG/1 ML VIAL IVPB SCH ×2 (01:20→09:12)
[2016-11-03] MEDS: ALBUTEROL SO4 2.5/IPRATROPIUM 0.5 INH SOL 3 ML VIAL.NEB. NEB SCH ×6 (01:54→22:05)
[2016-11-03] MEDS: LEVOTHYROXINE NA 25 MCG TABLET (FP) PO SCH (06:45)
[2016-11-03 07:29] LABS: MCH 29.4 pg (25.7-33.7); MEAN CELL VOLUME 86.5 fl (80-96); PLATELET COUNT 310 K/MM3 (134-434); WHITE BLOOD COUNT 20.2 K/mm3 (4.0-10.0)
[2016-11-03 08:00] LABS: ANION GAP 15 (8-16); CALCIUM 8.7 mg/dL (8.5-10.1); CO2 21 mmol/L (21-32); GLUCOSE,RANDOM 145 mg/dL (74-106); MAGNESIUM 2.1 mg/dL (1.8-2.4)
[2016-11-03 08:02] LABS: CREATININE 0.9 mg/dL (0.7-1.3)
[2016-11-03] MEDS ORDERED: cefTRIAXone SODIUM 1 GM VIAL ONE (08:55)
[2016-11-03] MEDS ORDERED: DEXTROSE 5%-WATER - 50 ML IVPB ONE (08:55)
[2016-11-03] MEDS: AZITHROMYCIN IVPB 250 MG in DEXTROSE 5%-WATER - 250 ML IVPB SCH (09:10)
[2016-11-03] MEDS: RAMIPRIL 5 MG CAPSULE (FP) PO SCH (09:10)
[2016-11-03] MEDS: FUROSEMIDE 20 MG TABLET (FP) PO SCH (09:11)
[2016-11-03] MEDS: ENOXAPARIN NA (PORCINE) 40 MG/0.4 ML DISP.SYRIN SQ SCH (09:11)
[2016-11-03] MEDS: GABAPENTIN 100 MG CAPSULE (FP) PO SCH (09:11)
[2016-11-03] MEDS: RANITIDINE HCL 150 MG TABLET (FP) PO SCH (09:12)
[2016-11-03] MEDS: CEFTRIAXONE 1 GM in DEXTROSE 5%-WATER - 50 ML IVPB SCH (09:12)
[2016-11-03] MEDS: amLODIPine BESYLATE 10 MG TABLET (FP) PO SCH (09:12)
[2016-11-03 09:38] LABS: PLATELET ESTIMATE ADEQUATE (NORMAL); TOTAL CELLS COUNTED 100
--- NOTE | 2016-11-03 11:25 | PN ---
Progress Note, Physician History of Present Illness: PULMONARY ALERT,OOB-CHAIR,LESS DYSPNEIC - Current Medication List Current Medications: Active Medications Acetaminophen (Tylenol -) 650 mg PO Q4H PRN PRN Reason: FEVER OR PAIN Albuterol/Ipratropium (Duoneb -) 1 amp NEB Q4H [facility] Last Admin: 11/03/16 10:40 Dose: 1 amp Amlodipine Besylate (Norvasc -) 10 mg PO DAILY [facility] Last Admin: 11/03/16 09:12 Dose: 10 mg Atorvastatin Calcium (Lipitor -) 10 mg PO HS [facility] Last Admin: 11/02/16 23:03 Dose: Not Given Enoxaparin Sodium (Lovenox -) 40 mg SQ DAILY [facility] Last Admin: 11/03/16 09:11 Dose: 40 mg Furosemide (Lasix -) 20 mg PO DAILY [facility] Last Admin: 11/03/16 09:11 Dose: 20 mg Gabapentin (Neurontin -) 100 mg PO DAILY [facility] Last Admin: 11/03/16 09:11 Dose: 100 mg Ceftriaxone Sodium 1 gm/ (Dextrose) 50 mls @ 100 mls/hr IVPB DAILY [facility] Last Admin: 11/03/16 09:12 Dose: 100 mls/hr Azithromycin 250 mg/ Dextrose 250 mls @ 250 mls/hr IVPB DAILY [facility] Stop: 11/05/16 10:59 Last Admin: 11/03/16 09:10 Dose: 250 mls/hr Levothyroxine Sodium (Synthroid -) 25 mcg PO ACBK [facility] Last Admin: 11/03/16 06:45 Dose: 25 mcg Methylprednisolone Sodium Succinate (Solu-Medrol -) 40 mg IVPB Q8H-IV [facility] Last Admin: 11/03/16 09:12 Dose: 40 mg Montelukast Sodium (Singulair -) 10 mg PO HS [facility] Last Admin: 11/02/16 22:35 Dose: 10 mg Ondansetron HCl (Zofran Injection) 4 mg IVPB Q6H PRN PRN Reason: NAUSEA Ramipril (Altace -) 10 mg PO DAILY [facility] Last Admin: 11/03/16 09:10 Dose: 10 mg Ranitidine HCl (Zantac -) 150 mg PO DAILY [facility] Last Admin: 11/03/16 09:12 Dose: 150 mg - Objective Vital Signs: Vital Signs Temperature 100.2 F H 11/03/16 09:00 Pulse Rate 96 H 11/03/16 09:00 Respiratory Rate 20 11/03/16 09:00 Blood Pressure 113/70 11/03/16 09:00 O2 Sat by Pulse Oximetry (%) 97 11/03/16 09:00 Constitutional: Yes: Well Nourished, Calm Eyes: Yes: WNL HENT: Yes: WNL Neck: Yes: WNL Cardiovascular: Yes: Regular Rate and Rhythm, S1, S2 Respiratory: Yes: Rales, Rhonchi Gastrointestinal: Yes: Normal Bowel Sounds, Soft Extremities: Yes: WNL Edema: No Labs: CBC, BMP 11/03/16 05:35 11/03/16 05:35 - ....Imaging Chest X-ray: Report Reviewed, Image Reviewed (IMPROVING INFILTRATE) Assessment/Plan Problem List - Problems (1) Pneumonia Code(s): J18.9 - PNEUMONIA, UNSPECIFIED ORGANISM Qualifiers: Pneumonia type: due to unspecified organism Laterality: right Lung location: lower lobe of lung Qualified Code(s): J18.1 - Lobar pneumonia, unspecified organism (2) Asthma exacerbation Code(s): J45.901 - UNSPECIFIED ASTHMA WITH (ACUTE) EXACERBATION (3) COPD exacerbation Code(s): J44.1 - CHRONIC OBSTRUCTIVE PULMONARY DISEASE W (ACUTE) EXACERBATION (4) CHF (congestive heart failure) Code(s): I50.9 - HEART FAILURE, UNSPECIFIED (5) HTN (hypertension) Code(s): I10 - ESSENTIAL (PRIMARY) HYPERTENSION (6) Hyponatremia Code(s): E87.1 - HYPO-OSMOLALITY AND HYPONATREMIA Assessment/Plan Pneumonia improving Acute Asthma/COPD Exacerbation Hyponatremia HTN CHF Hyperlipidemia Hypothyroidism - antibiotics - medrol taper - inhaled bronchodilators standing and PRN - O2 to keep SpO2 >90% - lasix - monitor urine output, creatinine,na - DVT prophylaxis DR LENO
[2016-11-03 12:17] LABS: THYROID STIMULATING HORMONE 1.22 uIU/ml (0.358-3.74)
--- NOTE | 2016-11-03 13:09 | PN ---
Teaching Attending Note Name of Resident: Angel Zimmerman ATTENDING PHYSICIAN STATEMENT I saw and evaluated the patient. I reviewed the resident's note and discussed the case with the resident. I agree with the resident's findings and plan as documented. SUBJECTIVE:c/o orthopnea last night. needed to sit in chair when he slept. continues to have productive cough of white sputum but overall improvd. requesting to go home. denies CP, SOB, fever, chills, N/V/C/D OBJECTIVE: Last Vital Signs Temp Pulse Resp BP Pulse Ox 100.2 F H 96 H 20 113/70 97 11/03/16 09:00 11/03/16 09:00 11/03/16 09:00 11/03/16 09:00 11/03/16 09:00 General NAD CV S1 S2 RRR no murmur/rub/gallop Lungs diffuse wheezing no crackles Extremities no pedal edema ASSESSMENT AND PLAN: 86yo M with PMH COPD, hypothyroid, PPM and HTN presented to the ER with SOB 1. Sepsis due to RLL PNA- clinically improved. legionella negative. SCx with + GNR. On Ceftriaxone/Azithromycin day 3. nebs prn f/u C&S 2. Acute hypoxic respiratory distress- due to PNA and COPD exacerbation vs acute heart failure, do not know previous EF as he states he has no hx of heart failure and no previous record here. call PMD for old reports. titrate down steroids to BID dosing can likley tolerate quick taper. will give dose of lasix 20mg IVP once as he was symptomatic. currently saturating 98% on RA. inhalers and nebs. supplemental oxygen as needed. pulmonary on board 3. Hyponatremia-Sosm WNL. Uosm and Na pending. PMD records for recent labs. appears euvolemic but will tread for volume overload due to pt complaints. lasix given. water restrict. trend Na 4. HTN- controlled. cont ramipril and norvasc 5. hypothyroid- TSH WNL. cont LT4 6. DVT ppx- lovenox
[2016-11-03] MEDS ORDERED: FUROSEMIDE 40 MG/4 ML INJECTABLE VIAL IVPB ONE (14:00)
[2016-11-03] MEDS ORDERED: PT OWN MED DRAWER 7, Y5N ONE ×2 (18:29→22:53)
[2016-11-03 21:25] LABS: ANION GAP 13 (8-16); CALCIUM 8.7 mg/dL (8.5-10.1); CO2 25 mmol/L (21-32); CREATININE 1.2 mg/dL (0.7-1.3); GLUCOSE,RANDOM 218 mg/dL (74-106)
[2016-11-03] MEDS: MONTELUKAST NA 10 MG TABLET PO SCH (21:50)
[2016-11-03] MEDS: ATORVASTATIN CA 10 MG TABLET (FP) PO SCH (21:51)
--- NOTE | 2016-11-03 23:03 | PN ---
Physical Exam: SUBJECTIVE: Patient seen and examined at bedside. Feels better today. No events overnight. Monitor continues to show PVCs OBJECTIVE: Vital Signs Period Temp Pulse Resp BP Sys/Dumont Pulse Ox Last 24 Hr 97.0 F-100.2 F 91-102 20-20 113-147/55-84 97 GENERAL: The patient is awake, alert, and fully oriented, in no acute distress. HEAD: Normal with no signs of trauma. EYES: extraocular movements intact, sclera anicteric, conjunctiva clear. No ptosis. NECK: Trachea midline, full range of motion, supple. LUNGS: Breath sounds equal, clear to auscultation bilaterally, no wheezes, no crackles, no accessory muscle use. HEART: Regular rate and rhythm, S1, S2 without murmur, rub or gallop. ABDOMEN: Soft, nontender, nondistended, normoactive bowel sounds, no guarding, no rebound. EXTREMITIES: 2+ pulses, warm, well-perfused, no edema. NEUROLOGICAL: Cranial nerves II through X grossly intact. Normal speech, gait not observed. PSYCH: Normal mood, normal affect. SKIN: Warm, dry, normal turgor, no rashes or lesions noted Laboratory Results - last 24 hr 11/03/16 11/03/16 11/03/16 05:35 05:35 20:15 WBC 20.2 H RBC 4.01 Hgb 11.8 Hct 34.7 L MCV 86.5 MCH 29.4 MCHC 34.0 RDW 14.0 Plt Count 310 MPV 7.0 L Total Counted 100 Neutrophils % (Manual) 94 H* Lymphocytes % (Manual) 3 L Monocytes % (Manual) 3 L Platelet Estimate Adequate Sodium 124 L* 124 L* Potassium 4.5 4.4 Chloride 88 L 86 L Carbon Dioxide 21 25 Anion Gap 15 13 BUN 29 H 27 H Creatinine 0.9 1.2 D Random Glucose 145 H 218 H D Calcium 8.7 8.7 Magnesium 2.1 TSH 1.22 Active Medications Generic Name Dose Route Start Last Admin Trade Name Freq PRN Reason Stop Dose Admin Acetaminophen 650 mg 11/01/16 13:17 Tylenol - PO Q4H PRN FEVER OR PAIN Albuterol/Ipratropium 1 amp 11/01/16 13:15 11/03/16 22:05 Duoneb - NEB 1 amp Q4H ANA M Administration Amlodipine Besylate 10 mg 11/02/16 10:00 11/03/16 09:12 Norvasc - PO 10 mg DAILY ANA M Administration Artificial Tears 1 drop 11/03/16 22:15 Artificial Tears OU QID PRN DRY EYES Atorvastatin Calcium 10 mg 11/02/16 22:00 11/03/16 21:51 Lipitor - PO Not Given HS ANA M Enoxaparin Sodium 40 mg 11/02/16 10:00 11/03/16 09:11 Lovenox - SQ 40 mg DAILY ANA M Administration Furosemide 20 mg 11/03/16 10:00 11/03/16 09:11 Lasix - PO 20 mg DAILY ANA M Administration Gabapentin 100 mg 11/02/16 10:00 11/03/16 09:11 Neurontin - PO 100 mg DAILY ANA M Administration Ceftriaxone Sodium 1 gm/ 50 mls @ 100 mls/hr 11/01/16 12:45 11/03/16 09:12 Dextrose IVPB 100 mls/hr DAILY ANA M Administration Azithromycin 250 mg/ Dextrose 250 mls @ 250 mls/hr 11/02/16 10:00 11/03/16 09: 10 IVPB 11/05/16 10:59 250 mls/hr DAILY ANA M Administration Levothyroxine Sodium 25 mcg 11/02/16 07:00 11/03/16 06:45 Synthroid - PO 25 mcg ACBK ANA M Administration Methylprednisolone Sodium Succinate 40 mg 11/04/16 10:00 Solu-Medrol - IVPB BID ANA M Montelukast Sodium 10 mg 11/01/16 22:00 11/03/16 21:50 Singulair - PO 10 mg HS ANA M Administration Ondansetron HCl 4 mg 11/01/16 13:17 Zofran Injection IVPB Q6H PRN NAUSEA Ramipril 10 mg 11/02/16 10:00 11/03/16 09:10 Altace - PO 10 mg DAILY ANA M Administration Ranitidine HCl 150 mg 11/02/16 10:00 11/03/16 09:12 Zantac - PO 150 mg DAILY ANA M Administration ASSESSMENT/PLAN: #Acute asthma/ COPD exacerbation 2/2 pneumonia -Supplemental O2 as needed -Continue standing DuoNebs -Solu-Medrol 40mg IVPB q8h -Continue Singulair -Pulmonary reccs appreciated #Sepsis 2/2 Community acquired pneumonia -Ceftriaxone/Azithromycin -Urine for legionella negative -Sputum culture -Follow up blood cultures #hyponatriemia -serum sodium 124 today -fluid restriction -continue to monitor; repeat labs in AM -serum mosm 279 #Abdominal pain - resolved -Diffuse pain, no focal tenderness, no change in bladder or bowel habits -nontender today # HTN- controlled -Continue Norvasc #Acute exacerbation of CHF -Lasix 20mg PO daily, extra 40 mg IV today -Strict I/O -Daily weights #FEN -no fluids -monitor lytes -Sodium controlled diet #Prophylaxsis -Lovenox 40mg sq daily -Early ambulation #Dispo -admitted for the treatment of Asthma/COPD exacerbation 2/2 CAP Problem List - Problems (1) Abdominal pain Code(s): R10.9 - UNSPECIFIED ABDOMINAL PAIN (2) CHF (congestive heart failure) Code(s): I50.9 - HEART FAILURE, UNSPECIFIED (3) COPD exacerbation Code(s): J44.1 - CHRONIC OBSTRUCTIVE PULMONARY DISEASE W (ACUTE) EXACERBATION (4) HTN (hypertension) Code(s): I10 - ESSENTIAL (PRIMARY) HYPERTENSION (5) Hyponatremia Code(s): E87.1 - HYPO-OSMOLALITY AND HYPONATREMIA (6) Pneumonia Code(s): J18.9 - PNEUMONIA, UNSPECIFIED ORGANISM Qualifiers: Pneumonia type: due to unspecified organism Laterality: right Lung location: lower lobe of lung Qualified Code(s): J18.1 - Lobar pneumonia, unspecified organism Visit type - Emergency Visit Emergency Visit: Yes ED Registration Date: 11/01/16 Care time: The patient presented to the Emergency Department on the above date and was hospitalized for further evaluation of their emergent condition. - New Patient This patient is new to me today: No - Critical Care Critical Care patient: No
[2016-11-04] MEDS: ALBUTEROL SO4 2.5/IPRATROPIUM 0.5 INH SOL 3 ML VIAL.NEB. NEB SCH ×3 (01:00→10:00)
[2016-11-04] MEDS: LEVOTHYROXINE NA 25 MCG TABLET (FP) PO SCH (06:29)
[2016-11-04] MEDS ORDERED: DEXTROSE 5%-WATER - 50 ML IVPB ONE (09:31)
[2016-11-04] MEDS ORDERED: cefTRIAXone SODIUM 1 GM VIAL ONE (09:31)
--- NOTE | 2016-11-04 09:43 | PN ---
Progress Note, Physician History of Present Illness: pulmonary alert,oob-chair,comfortable,-resp distress,less cough - Current Medication List Current Medications: Active Medications Acetaminophen (Tylenol -) 650 mg PO Q4H PRN PRN Reason: FEVER OR PAIN Albuterol/Ipratropium (Duoneb -) 1 amp NEB Q4H [facility] Last Admin: 11/04/16 06:50 Dose: 1 amp Amlodipine Besylate (Norvasc -) 10 mg PO DAILY [facility] Last Admin: 11/03/16 09:12 Dose: 10 mg Artificial Tears (Artificial Tears) 1 drop OU QID PRN PRN Reason: DRY EYES Atorvastatin Calcium (Lipitor -) 10 mg PO HS [facility] Last Admin: 11/03/16 21:51 Dose: Not Given Enoxaparin Sodium (Lovenox -) 40 mg SQ DAILY [facility] Last Admin: 11/03/16 09:11 Dose: 40 mg Furosemide (Lasix -) 20 mg PO DAILY [facility] Last Admin: 11/03/16 09:11 Dose: 20 mg Gabapentin (Neurontin -) 100 mg PO DAILY [facility] Last Admin: 11/03/16 09:11 Dose: 100 mg Ceftriaxone Sodium 1 gm/ (Dextrose) 50 mls @ 100 mls/hr IVPB DAILY [facility] Last Admin: 11/03/16 09:12 Dose: 100 mls/hr Azithromycin 250 mg/ Dextrose 250 mls @ 250 mls/hr IVPB DAILY [facility] Stop: 11/05/16 10:59 Last Admin: 11/03/16 09:10 Dose: 250 mls/hr Levothyroxine Sodium (Synthroid -) 25 mcg PO ACBK [facility] Last Admin: 11/04/16 06:29 Dose: 25 mcg Methylprednisolone Sodium Succinate (Solu-Medrol -) 40 mg IVPB BID [facility] Montelukast Sodium (Singulair -) 10 mg PO HS [facility] Last Admin: 11/03/16 21:50 Dose: 10 mg Ondansetron HCl (Zofran Injection) 4 mg IVPB Q6H PRN PRN Reason: NAUSEA Ramipril (Altace -) 10 mg PO DAILY [facility] Last Admin: 11/03/16 09:10 Dose: 10 mg Ranitidine HCl (Zantac -) 150 mg PO DAILY [facility] Last Admin: 11/03/16 09:12 Dose: 150 mg - Objective Vital Signs: Vital Signs Temperature 98.2 F 11/04/16 08:10 Pulse Rate 86 11/04/16 08:10 Respiratory Rate 16 11/04/16 08:10 Blood Pressure 134/86 11/04/16 08:10 O2 Sat by Pulse Oximetry (%) 97 11/03/16 21:00 Constitutional: Yes: Well Nourished, Calm Eyes: Yes: WNL HENT: Yes: WNL Neck: Yes: WNL Cardiovascular: Yes: Regular Rate and Rhythm, S1, S2 Respiratory: Yes: Rales Gastrointestinal: Yes: Normal Bowel Sounds, Soft Extremities: Yes: WNL Edema: No Labs: CBC, BMP Assessment/Plan Problem List - Problems (1) Pneumonia Code(s): J18.9 - PNEUMONIA, UNSPECIFIED ORGANISM Qualifiers: Pneumonia type: due to unspecified organism Laterality: right Lung location: lower lobe of lung Qualified Code(s): J18.1 - Lobar pneumonia, unspecified organism (2) Asthma exacerbation Code(s): J45.901 - UNSPECIFIED ASTHMA WITH (ACUTE) EXACERBATION (3) COPD exacerbation Code(s): J44.1 - CHRONIC OBSTRUCTIVE PULMONARY DISEASE W (ACUTE) EXACERBATION (4) CHF (congestive heart failure) Code(s): I50.9 - HEART FAILURE, UNSPECIFIED (5) HTN (hypertension) Code(s): I10 - ESSENTIAL (PRIMARY) HYPERTENSION (6) Hyponatremia Code(s): E87.1 - HYPO-OSMOLALITY AND HYPONATREMIA Assessment/Plan Pneumonia improving Acute Asthma/COPD Exacerbation improving Hyponatremia HTN CHF Hyperlipidemia Hypothyroidism - antibiotics - medrol taper - inhaled bronchodilators standing and PRN - O2 to keep SpO2 >90% - lasix - monitor lytes - DVT prophylaxis DR LEON
[2016-11-04] MEDS: ENOXAPARIN NA (PORCINE) 40 MG/0.4 ML DISP.SYRIN SQ SCH (10:16)
[2016-11-04] MEDS: GABAPENTIN 100 MG CAPSULE (FP) PO SCH (10:17)
[2016-11-04] MEDS: amLODIPine BESYLATE 10 MG TABLET (FP) PO SCH (10:17)
[2016-11-04] MEDS: FUROSEMIDE 20 MG TABLET (FP) PO SCH (10:17)
[2016-11-04] MEDS: RANITIDINE HCL 150 MG TABLET (FP) PO SCH (10:17)
[2016-11-04] MEDS: methylPREDNISolone NA SUCC 40 MG/1 ML VIAL IVPB SCH ×2 (10:17→21:56)
[2016-11-04] MEDS: RAMIPRIL 5 MG CAPSULE (FP) PO SCH (10:17)
[2016-11-04] MEDS: CEFTRIAXONE 1 GM in DEXTROSE 5%-WATER - 50 ML IVPB SCH (10:17)
[2016-11-04] MEDS: AZITHROMYCIN IVPB 250 MG in DEXTROSE 5%-WATER - 250 ML IVPB SCH (11:30)
[2016-11-04 11:41] LABS: ANION GAP 10 (8-16); CALCIUM 8.7 mg/dL (8.5-10.1); CO2 26 mmol/L (21-32); CREATININE 0.9 mg/dL (0.7-1.3); GLUCOSE,RANDOM 122 mg/dL (74-106)
--- NOTE | 2016-11-04 13:49 | PN ---
Progress Note (short form) - Note Progress Note: continues to have productive cough of white sputum but overall improved. states he no longer has orthopnea. denies Cp, SOB, fever, chills, N/V/C/D Current Medications Generic Name Dose Route Start Last Admin Trade Name Freq PRN Reason Stop Dose Admin Acetaminophen 650 mg 11/01/16 13:17 Tylenol - PO Q4H PRN FEVER OR PAIN Albuterol/Ipratropium 1 amp 11/01/16 13:15 11/04/16 06:50 Duoneb - NEB 1 amp Q4H ANA M Administration Amlodipine Besylate 10 mg 11/02/16 10:00 11/04/16 10:17 Norvasc - PO 10 mg DAILY ANA M Administration Artificial Tears 1 drop 11/03/16 22:15 Artificial Tears OU QID PRN DRY EYES Atorvastatin Calcium 10 mg 11/02/16 22:00 11/03/16 21:51 Lipitor - PO Not Given HS ANA M Enoxaparin Sodium 40 mg 11/02/16 10:00 11/04/16 10:16 Lovenox - SQ 40 mg DAILY ANA M Administration Furosemide 20 mg 11/03/16 10:00 11/04/16 10:17 Lasix - PO 20 mg DAILY ANA M Administration Gabapentin 100 mg 11/02/16 10:00 11/04/16 10:17 Neurontin - PO 100 mg DAILY ANA M Administration Ceftriaxone Sodium 1 gm/ 50 mls @ 100 mls/hr 11/01/16 12:45 11/04/16 10:17 Dextrose IVPB 100 mls/hr DAILY ANA M Administration Azithromycin 250 mg/ Dextrose 250 mls @ 250 mls/hr 11/02/16 10:00 11/04/16 11: 30 IVPB 11/05/16 10:59 250 mls/hr DAILY ANA M Administration Levothyroxine Sodium 25 mcg 11/02/16 07:00 11/04/16 06:29 Synthroid - PO 25 mcg ACBK ANA M Administration Methylprednisolone Sodium Succinate 40 mg 11/04/16 10:00 11/04/16 10:17 Solu-Medrol - IVPB 40 mg BID ANA M Administration Montelukast Sodium 10 mg 11/01/16 22:00 11/03/16 21:50 Singulair - PO 10 mg HS ANA M Administration Ondansetron HCl 4 mg 11/01/16 13:17 Zofran Injection IVPB Q6H PRN NAUSEA Ramipril 10 mg 11/02/16 10:00 11/04/16 10:17 Altace - PO 10 mg DAILY ANA M Administration Ranitidine HCl 150 mg 11/02/16 10:00 11/04/16 10:17 Zantac - PO 150 mg DAILY ANA M Administration Last Vital Signs Temp Pulse Resp BP Pulse Ox 98.2 F 86 16 134/86 96 11/04/16 08:10 11/04/16 08:10 11/04/16 09:00 11/04/16 08:10 11/04/16 09:00 General NAD CV S1 S2 RRR no murmur/rub/gallop Lungs diffuse wheezing no crackles Extremities no pedal edema CBCD WBC 20.2 K/mm3 (4.0-10.0) H 11/03/16 05:35 RBC 4.01 M/mm3 (4.00-5.60) 11/03/16 05:35 Hgb 11.8 GM/dL (11.7-16.9) 11/03/16 05:35 Hct 34.7 % (35.4-49) L 11/03/16 05:35 MCV 86.5 fl (80-96) 11/03/16 05:35 MCHC 34.0 g/dl (32.0-35.9) 11/03/16 05:35 RDW 14.0 % (11.9-15.9) 11/03/16 05:35 Plt Count 310 K/MM3 (134-434) 11/03/16 05:35 MPV 7.0 fl (7.5-11.1) L 11/03/16 05:35 CMP Sodium 127 mmol/L (136-145) L 11/04/16 10:35 Potassium 4.3 mmol/L (3.5-5.1) 11/04/16 10:35 Chloride 91 mmol/L (98-107) L 11/04/16 10:35 Carbon Dioxide 26 mmol/L (21-32) 11/04/16 10:35 Anion Gap 10 (8-16) 11/04/16 10:35 BUN 23 mg/dL (7-18) H 11/04/16 10:35 Creatinine 0.9 mg/dL (0.7-1.3) D 11/04/16 10:35 Creat Clearance w eGFR > 60 (>60) 11/02/16 07:00 Calcium 8.7 mg/dL (8.5-10.1) 11/04/16 10:35 Total Bilirubin 0.6 mg/dL (0.2-1.0) D 11/02/16 07:00 AST 19 U/L (15-37) 11/02/16 07:00 ALT 21 U/L (12-78) 11/02/16 07:00 Alkaline Phosphatase 71 U/L (45-117) 11/02/16 07:00 Total Protein 6.4 g/dl (6.4-8.2) 11/02/16 07:00 Albumin 3.0 g/dl (3.4-5.0) L 11/02/16 07:00 ASSESSMENT AND PLAN: 86yo M with PMH COPD, hypothyroid, PPM and HTN presented to the ER with SOB 1. Sepsis due to RLL PNA- clinically improved. saturating 98% on RA. afebrile. legionella negative. SCx with +GNR. On Ceftriaxone/Azithromycin day 4. nebs prn f/u C&S 2. Acute hypoxic respiratory distress- due to PNA and COPD exacerbation vs acute heart failure, clinically appears euvolemic. no indication for lasix IV at this time. continue po. will decrease medrol to BID dosing. inhalers and nebs. supplemental oxygen as needed. pulmonary on board 3. Hyponatremia- likley due to CHF. now improving. cont fluid restriction. trend Na. 4. HTN- controlled. cont ramipril and norvasc 5. hypothyroid- TSH WNL. cont LT4 6. DVT ppx- lovenox Visit type - Emergency Visit Emergency Visit: Yes ED Registration Date: 11/01/16 Care time: The patient presented to the Emergency Department on the above date and was hospitalized for further evaluation of their emergent condition. - New Patient This patient is new to me today: No - Critical Care Critical Care patient: No - Discharge Referral Referred to [id number] No
[2016-11-04] MEDS ORDERED: ALBUTEROL SO4 2.5/IPRATROPIUM 0.5 INH SOL 3 ML VIAL.NEB. NEB SCH (14:00)
[2016-11-04] MEDS: ALBUTEROL SO4 2.5/IPRATROPIUM 0.5 INH SOL 3 ML VIAL.NEB. NEB PRN (21:50)
[2016-11-04] MEDS: ATORVASTATIN CA 10 MG TABLET (FP) PO SCH (21:55)
[2016-11-04] MEDS: ARTIFICIAL TEARS (POLYVINYL ALCOHOL 1.4%) OPTH DROPS OU PRN (21:56)
[2016-11-04] MEDS: MONTELUKAST NA 10 MG TABLET PO SCH (21:56)
[2016-11-05] MEDS: LEVOTHYROXINE NA 25 MCG TABLET (FP) PO SCH (06:24)
[2016-11-05] MEDS: ALBUTEROL SO4 2.5/IPRATROPIUM 0.5 INH SOL 3 ML VIAL.NEB. NEB PRN ×2 (06:45→22:10)
[2016-11-05 08:32] LABS: ANION GAP 8 (8-16); CALCIUM 9.1 mg/dL (8.5-10.1); CO2 29 mmol/L (21-32); GLUCOSE,RANDOM 112 mg/dL (74-106)
[2016-11-05] MEDS ORDERED: cefTRIAXone SODIUM 1 GM VIAL ONE (08:45)
[2016-11-05] MEDS ORDERED: DEXTROSE 5%-WATER - 50 ML IVPB ONE (08:46)
[2016-11-05] MEDS: ENOXAPARIN NA (PORCINE) 40 MG/0.4 ML DISP.SYRIN SQ SCH (09:01)
[2016-11-05] MEDS: FUROSEMIDE 20 MG TABLET (FP) PO SCH (09:01)
[2016-11-05] MEDS: CEFTRIAXONE 1 GM in DEXTROSE 5%-WATER - 50 ML IVPB SCH (09:01)
[2016-11-05] MEDS: methylPREDNISolone NA SUCC 40 MG/1 ML VIAL IVPB SCH ×2 (09:02→22:04)
[2016-11-05] MEDS: RANITIDINE HCL 150 MG TABLET (FP) PO SCH (09:02)
[2016-11-05] MEDS: RAMIPRIL 5 MG CAPSULE (FP) PO SCH (09:02)
[2016-11-05] MEDS: amLODIPine BESYLATE 10 MG TABLET (FP) PO SCH (09:02)
[2016-11-05] MEDS: GABAPENTIN 100 MG CAPSULE (FP) PO SCH (09:02)
--- NOTE | 2016-11-05 09:32 | PN ---
Progress Note, Physician History of Present Illness: pulmonary alert,oob-chair,comfortable,-resp distress,less cough - Current Medication List Current Medications: Active Medications Acetaminophen (Tylenol -) 650 mg PO Q4H PRN PRN Reason: FEVER OR PAIN Albuterol/Ipratropium (Duoneb -) 1 amp NEB Q6H PRN PRN Reason: WHEEZING Last Admin: 11/05/16 06:45 Dose: 1 amp Amlodipine Besylate (Norvasc -) 10 mg PO DAILY [facility] Last Admin: 11/05/16 09:02 Dose: 10 mg Artificial Tears (Artificial Tears) 1 drop OU QID PRN PRN Reason: DRY EYES Last Admin: 11/04/16 21:56 Dose: 1 drop Atorvastatin Calcium (Lipitor -) 10 mg PO [facility] Last Admin: 11/04/16 21:55 Dose: Not Given Enoxaparin Sodium (Lovenox -) 40 mg SQ DAILY [facility] Last Admin: 11/05/16 09:01 Dose: 40 mg Furosemide (Lasix -) 20 mg PO DAILY [facility] Last Admin: 11/05/16 09:01 Dose: 20 mg Gabapentin (Neurontin -) 100 mg PO DAILY [facility] Last Admin: 11/05/16 09:02 Dose: 100 mg Ceftriaxone Sodium 1 gm/ (Dextrose) 50 mls @ 100 mls/hr IVPB DAILY [facility] Last Admin: 11/05/16 09:01 Dose: 100 mls/hr Azithromycin 250 mg/ Dextrose 250 mls @ 250 mls/hr IVPB DAILY [facility] Stop: 11/05/16 10:59 Last Admin: 11/04/16 11:30 Dose: 250 mls/hr Levothyroxine Sodium (Synthroid -) 25 mcg PO ACBK [facility] Last Admin: 11/05/16 06:24 Dose: 25 mcg Methylprednisolone Sodium Succinate (Solu-Medrol -) 40 mg IVPB BID [facility] Last Admin: 11/05/16 09:02 Dose: 40 mg Montelukast Sodium (Singulair -) 10 mg PO HS [facility] Last Admin: 11/04/16 21:56 Dose: 10 mg Ondansetron HCl (Zofran Injection) 4 mg IVPB Q6H PRN PRN Reason: NAUSEA Ramipril (Altace -) 10 mg PO DAILY [facility] Last Admin: 11/05/16 09:02 Dose: 10 mg Ranitidine HCl (Zantac -) 150 mg PO DAILY ANA M Last Admin: 11/05/16 09:02 Dose: 150 mg - Objective Vital Signs: Vital Signs Temperature 98.2 F 11/05/16 09:00 Pulse Rate 102 H 11/05/16 09:00 Respiratory Rate 16 11/05/16 09:00 Blood Pressure 136/76 11/05/16 09:00 O2 Sat by Pulse Oximetry (%) 95 11/04/16 21:00 Constitutional: Yes: Well Nourished, Calm Eyes: Yes: WNL HENT: Yes: WNL Neck: Yes: WNL Cardiovascular: Yes: Regular Rate and Rhythm, S1, S2 Respiratory: Yes: Rales, Wheezes (scattered veena wheezes,) Gastrointestinal: Yes: Normal Bowel Sounds, Soft Extremities: Yes: WNL Edema: No Labs: CBC, BMP 11/03/16 05:35 11/05/16 06:00 Assessment/Plan Problem List - Problems (1) Pneumonia Code(s): J18.9 - PNEUMONIA, UNSPECIFIED ORGANISM Qualifiers: Pneumonia type: due to unspecified organism Laterality: right Lung location: lower lobe of lung Qualified Code(s): J18.1 - Lobar pneumonia, unspecified organism (2) Asthma exacerbation Code(s): J45.901 - UNSPECIFIED ASTHMA WITH (ACUTE) EXACERBATION (3) COPD exacerbation Code(s): J44.1 - CHRONIC OBSTRUCTIVE PULMONARY DISEASE W (ACUTE) EXACERBATION (4) CHF (congestive heart failure) Code(s): I50.9 - HEART FAILURE, UNSPECIFIED (5) HTN (hypertension) Code(s): I10 - ESSENTIAL (PRIMARY) HYPERTENSION (6) Hyponatremia Code(s): E87.1 - HYPO-OSMOLALITY AND HYPONATREMIA Assessment/Plan Pneumonia improving Acute Asthma/COPD Exacerbation improving Hyponatremia improving HTN CHF Hyperlipidemia Hypothyroidism - antibiotics - medrol taper - inhaled bronchodilators standing and PRN - O2 to keep SpO2 >90% - lasix - monitor lytes - DVT prophylaxis - chest x-ray today DR LEON
[2016-11-05] MEDS: AZITHROMYCIN IVPB 250 MG in DEXTROSE 5%-WATER - 250 ML IVPB SCH (10:30)
--- NOTE | 2016-11-05 10:53 | PN ---
Progress Note (short form) - Note Progress Note: continues to have productive cough of white sputum. orthopnea last night. denies Cp, SOB, fever, chills, N/V/C/D Current Medications Generic Name Dose Route Start Last Admin Trade Name Freq PRN Reason Stop Dose Admin Acetaminophen 650 mg 11/01/16 13:17 Tylenol - PO Q4H PRN FEVER OR PAIN Albuterol/Ipratropium 1 amp 11/04/16 14:37 11/05/16 06:45 Duoneb - NEB 1 amp Q6H PRN Administration WHEEZING Amlodipine Besylate 10 mg 11/02/16 10:00 11/05/16 09:02 Norvasc - PO 10 mg DAILY ANA M Administration Artificial Tears 1 drop 11/03/16 22:15 11/04/16 21:56 Artificial Tears OU 1 drop QID PRN Administration DRY EYES Atorvastatin Calcium 10 mg 11/02/16 22:00 11/04/16 21:55 Lipitor - PO Not Given HS ANA M Enoxaparin Sodium 40 mg 11/02/16 10:00 11/05/16 09:01 Lovenox - SQ 40 mg DAILY ANA M Administration Furosemide 20 mg 11/03/16 10:00 11/05/16 09:01 Lasix - PO 20 mg DAILY ANA M Administration Gabapentin 100 mg 11/02/16 10:00 11/05/16 09:02 Neurontin - PO 100 mg DAILY ANA M Administration Ceftriaxone Sodium 1 gm/ 50 mls @ 100 mls/hr 11/01/16 12:45 11/05/16 09:01 Dextrose IVPB 100 mls/hr DAILY ANA M Administration Azithromycin 250 mg/ Dextrose 250 mls @ 250 mls/hr 11/02/16 10:00 11/04/16 11: 30 IVPB 11/05/16 10:59 250 mls/hr DAILY ANA M Administration Levothyroxine Sodium 25 mcg 11/02/16 07:00 11/05/16 06:24 Synthroid - PO 25 mcg ACBK ANA M Administration Methylprednisolone Sodium Succinate 30 mg 11/05/16 20:00 Solu-Medrol - IVPB BID@0800,2000 ANA M Montelukast Sodium 10 mg 11/01/16 22:00 11/04/16 21:56 Singulair - PO 10 mg HS ANA M Administration Ondansetron HCl 4 mg 11/01/16 13:17 Zofran Injection IVPB Q6H PRN NAUSEA Ramipril 10 mg 11/02/16 10:00 11/05/16 09:02 Altace - PO 10 mg DAILY ANA M Administration Ranitidine HCl 150 mg 11/02/16 10:00 11/05/16 09:02 Zantac - PO 150 mg DAILY ANA M Administration Last Vital Signs Temp Pulse Resp BP Pulse Ox 98.2 F 102 H 16 136/76 95 11/05/16 09:00 11/05/16 09:00 11/05/16 09:00 11/05/16 09:00 11/04/16 21:00 General NAD CV S1 S2 RRR no murmur/rub/gallop Lungs decrease sounds at the bases R>L no wheezing Extremities no pedal edema CMP Sodium 129 mmol/L (136-145) L 11/05/16 06:00 Potassium 5.3 mmol/L (3.5-5.1) H D 11/05/16 06:00 Chloride 92 mmol/L (98-107) L 11/05/16 06:00 Carbon Dioxide 29 mmol/L (21-32) 11/05/16 06:00 Anion Gap 8 (8-16) 11/05/16 06:00 BUN 23 mg/dL (7-18) H 11/05/16 06:00 Creatinine 1.0 mg/dL (0.7-1.3) 11/05/16 06:00 Creat Clearance w eGFR > 60 (>60) 11/02/16 07:00 Calcium 9.1 mg/dL (8.5-10.1) 11/05/16 06:00 Total Bilirubin 0.6 mg/dL (0.2-1.0) D 11/02/16 07:00 AST 19 U/L (15-37) 11/02/16 07:00 ALT 21 U/L (12-78) 11/02/16 07:00 Alkaline Phosphatase 71 U/L (45-117) 11/02/16 07:00 Total Protein 6.4 g/dl (6.4-8.2) 11/02/16 07:00 Albumin 3.0 g/dl (3.4-5.0) L 11/02/16 07:00 ASSESSMENT AND PLAN: 86yo M with PMH COPD, hypothyroid, PPM and HTN presented to the ER with SOB 1. Sepsis due to RLL PNA- clinically improved. saturating 98% on RA. afebrile. SCx +pseudomonas, price-sensitive. since clinically improved will continue current therapy. d/c azithromycin. cont Ceftriaxone day 5. nebs prn. will need f /u CXR in 6-8 weeks. 2. Acute hypoxic respiratory distress- due to PNA and COPD exacerbation vs acute heart failure, c/o orthopnea last night. repeat CXR this AM looks worsening consolidation but beleive it to be fluid as pt has been afebrile, leukocytosis due to steroids. will symptoms of volume overload will give additional dose of Lasix IV today and monitor for clinical improvement. steroid taper per pulmonary. supplemental oxygen as needed. pulmonary on board 3. Hyponatremia- likley due to CHF. now improving. cont fluid restriction. trend Na. 4. HTN- controlled. cont ramipril and norvasc 5. hypothyroid- TSH WNL. cont LT4 6. DVT ppx- lovenox Visit type - Emergency Visit Emergency Visit: Yes ED Registration Date: 11/01/16 Care time: The patient presented to the Emergency Department on the above date and was hospitalized for further evaluation of their emergent condition. - New Patient This patient is new to me today: No - Critical Care Critical Care patient: No - Discharge Referral Referred to [facility] Med P.C.: No
[2016-11-05] MEDS ORDERED: FUROSEMIDE 40 MG/4 ML INJECTABLE VIAL IVPUSH ONE (11:30)
[2016-11-05] MEDS: ARTIFICIAL TEARS (POLYVINYL ALCOHOL 1.4%) OPTH DROPS OU PRN (14:30)
[2016-11-05] MEDS: ATORVASTATIN CA 10 MG TABLET (FP) PO SCH (22:02)
[2016-11-05] MEDS: MONTELUKAST NA 10 MG TABLET PO SCH (22:04)
[2016-11-06] MEDS: ALBUTEROL SO4 2.5/IPRATROPIUM 0.5 INH SOL 3 ML VIAL.NEB. NEB PRN (06:15)
[2016-11-06] MEDS: LEVOTHYROXINE NA 25 MCG TABLET (FP) PO SCH (06:31)
[2016-11-06 07:04] LABS: MCH 29.2 pg (25.7-33.7); MCHC 33.6 g/dl (32.0-35.9); MEAN CELL VOLUME 86.9 fl (80-96); MEAN PLT VOLUME 6.3 fl (7.5-11.1); PLATELET COUNT 459 K/MM3 (134-434); WHITE BLOOD COUNT 14.8 K/mm3 (4.0-10.0)
[2016-11-06 07:36] LABS: CALCIUM 8.9 mg/dL (8.5-10.1)
[2016-11-06 07:40] LABS: ANION GAP 10 (8-16); CO2 28 mmol/L (21-32); CREATININE 1.1 mg/dL (0.7-1.3); GLUCOSE,RANDOM 121 mg/dL (74-106); MAGNESIUM 2.3 mg/dL (1.8-2.4)
[2016-11-06] MEDS: methylPREDNISolone NA SUCC 40 MG/1 ML VIAL IVPB SCH ×2 (08:42→21:07)
[2016-11-06 09:06] LABS: METAMYELOCYTE 4 % (0-2); MYELOCYTE 1 % (0-2); TOTAL CELLS COUNTED 100
[2016-11-06] MEDS ORDERED: cefTRIAXone SODIUM 1 GM VIAL ONE (10:54)
[2016-11-06] MEDS ORDERED: DEXTROSE 5%-WATER - 50 ML IVPB ONE (10:54)
[2016-11-06] MEDS: GABAPENTIN 100 MG CAPSULE (FP) PO SCH (10:57)
[2016-11-06] MEDS: ENOXAPARIN NA (PORCINE) 40 MG/0.4 ML DISP.SYRIN SQ SCH (10:57)
[2016-11-06] MEDS: FUROSEMIDE 20 MG TABLET (FP) PO SCH (10:57)
[2016-11-06] MEDS: RAMIPRIL 5 MG CAPSULE (FP) PO SCH (10:57)
[2016-11-06] MEDS: amLODIPine BESYLATE 10 MG TABLET (FP) PO SCH (10:57)
[2016-11-06] MEDS: CEFTRIAXONE 1 GM in DEXTROSE 5%-WATER - 50 ML IVPB SCH (10:57)
[2016-11-06] MEDS: RANITIDINE HCL 150 MG TABLET (FP) PO SCH (10:57)
--- NOTE | 2016-11-06 10:59 | PN ---
Progress Note, Physician History of Present Illness: PULMONARY ALERT,OOB-CHAIR,LESS DYSPNEIC,+COUGH - Current Medication List Current Medications: Active Medications Acetaminophen (Tylenol -) 650 mg PO Q4H PRN PRN Reason: FEVER OR PAIN Albuterol/Ipratropium (Duoneb -) 1 amp NEB Q6H PRN PRN Reason: WHEEZING Last Admin: 11/06/16 06:15 Dose: 1 amp Amlodipine Besylate (Norvasc -) 10 mg PO DAILY [facility] Last Admin: 11/05/16 09:02 Dose: 10 mg Artificial Tears (Artificial Tears) 1 drop OU QID PRN PRN Reason: DRY EYES Last Admin: 11/05/16 14:30 Dose: 1 drop Atorvastatin Calcium (Lipitor -) 10 mg PO HS [facility] Last Admin: 11/05/16 22:02 Dose: Not Given Enoxaparin Sodium (Lovenox -) 40 mg SQ DAILY [facility] Last Admin: 11/05/16 09:01 Dose: 40 mg Furosemide (Lasix -) 20 mg PO DAILY [facility] Last Admin: 11/05/16 09:01 Dose: 20 mg Gabapentin (Neurontin -) 100 mg PO DAILY [facility] Last Admin: 11/05/16 09:02 Dose: 100 mg Ceftriaxone Sodium 1 gm/ (Dextrose) 50 mls @ 100 mls/hr IVPB DAILY [facility] Last Admin: 11/05/16 09:01 Dose: 100 mls/hr Levothyroxine Sodium (Synthroid -) 25 mcg PO ACBK [facility] Last Admin: 11/06/16 06:31 Dose: 25 mcg Methylprednisolone Sodium Succinate (Solu-Medrol -) 30 mg IVPB BID@0800,2000 [facility] Last Admin: 11/06/16 08:42 Dose: 30 mg Montelukast Sodium (Singulair -) 10 mg PO HS [facility] Last Admin: 11/05/16 22:04 Dose: 10 mg Ondansetron HCl (Zofran Injection) 4 mg IVPB Q6H PRN PRN Reason: NAUSEA Ramipril (Altace -) 10 mg PO DAILY [facility] Last Admin: 11/05/16 09:02 Dose: 10 mg Ranitidine HCl (Zantac -) 150 mg PO DAILY [facility] Last Admin: 11/05/16 09:02 Dose: 150 mg - Objective Vital Signs: Vital Signs Temperature 97.7 F 11/06/16 06:00 Pulse Rate 92 H 11/06/16 06:00 Respiratory Rate 20 11/06/16 06:00 Blood Pressure 130/86 11/06/16 06:00 O2 Sat by Pulse Oximetry (%) 92 L 11/05/16 20:59 Constitutional: Yes: Well Nourished, Calm Eyes: Yes: WNL HENT: Yes: WNL Neck: Yes: WNL Cardiovascular: Yes: Regular Rate and Rhythm, S1, S2 Respiratory: Yes: Rales (BIBASILAR RALES) Gastrointestinal: Yes: Normal Bowel Sounds, Soft Extremities: Yes: WNL Edema: No Labs: CBC, BMP 11/06/16 05:35 11/06/16 05:35 Assessment/Plan Problem List - Problems (1) Pneumonia Code(s): J18.9 - PNEUMONIA, UNSPECIFIED ORGANISM Qualifiers: Pneumonia type: due to unspecified organism Laterality: right Lung location: lower lobe of lung Qualified Code(s): J18.1 - Lobar pneumonia, unspecified organism (2) Asthma exacerbation Code(s): J45.901 - UNSPECIFIED ASTHMA WITH (ACUTE) EXACERBATION (3) COPD exacerbation Code(s): J44.1 - CHRONIC OBSTRUCTIVE PULMONARY DISEASE W (ACUTE) EXACERBATION (4) CHF (congestive heart failure) Code(s): I50.9 - HEART FAILURE, UNSPECIFIED (5) HTN (hypertension) Code(s): I10 - ESSENTIAL (PRIMARY) HYPERTENSION (6) Hyponatremia Code(s): E87.1 - HYPO-OSMOLALITY AND HYPONATREMIA Assessment/Plan Pneumonia improving Acute Asthma/COPD Exacerbation improving Hyponatremia improving HTN CHF Hyperlipidemia Hypothyroidism - antibiotics - medrol - inhaled bronchodilators standing and PRN - O2 to keep SpO2 >90% - lasix - monitor lytes - DVT prophylaxis - chest ct DR ELON
[2016-11-06] MEDS ORDERED: POLYETHYLENE GLYCOL 3350 119 GM BTL PO ONE (13:26)
--- NOTE | 2016-11-06 17:32 | PN ---
Teaching Attending Note Name of Resident: Angel Zimmerman ATTENDING PHYSICIAN STATEMENT I saw and evaluated the patient. I reviewed the resident's note and discussed the case with the resident. I agree with the resident's findings and plan as documented. SUBJECTIVE:states asymptomatic. denies CP, SOB, fever, chills, cough, orthopnea , N/V/C/D OBJECTIVE: Last Vital Signs Temp Pulse Resp BP Pulse Ox 98.2 F 87 18 135/58 95 11/06/16 14:40 11/06/16 14:40 11/06/16 14:40 11/06/16 14:40 11/06/16 09:00 General NAD CV S1 S2 RRR no murmur/rub/gallop Lungs CTA B/L no wheezing/rales/rhonchi Extremities no pedal edema ASSESSMENT AND PLAN: 86yo M with PMH COPD, hypothyroid, PPM and HTN presented to the ER with SOB 1. Sepsis due to RLL PNA- clinically improved. saturating 98% on RA. afebrile. SCx +pseudomonas, price-sensitive. pulmonary requested CT of chest to further distinguish between vascular congestion and PNA. will hold lasix at this time as not symptomatic. pending results of CT will give if needed. cont Ceftriaxone day 6. nebs prn. will need f/u CXR in 6-8 weeks. 2. Acute hypoxic respiratory distress- due to PNA and COPD exacerbation vs acute heart failure, no more reports of orthopnea. off supplemental oxygen. saturating well on RA. steroid taper per pulmonary. pulmonary on board 3. Hyponatremia- likley due to CHF. now improving. as per PMD baseline Na is mid 120's. 4. HTN- controlled. cont ramipril and norvasc 5. hypothyroid- TSH WNL. cont LT4 6. DVT ppx- lovenox
--- NOTE | 2016-11-06 19:17 | PN ---
Physical Exam: SUBJECTIVE: Patient seen and examined at bedside. Patient states he feels much better today and is almost back to baseline. Patient denies orthopnea. OBJECTIVE: Vital Signs Period Temp Pulse Resp BP Sys/[place] Pulse Ox Last 24 Hr 97.7 F-98.3 F 83-95 18-20 130-154/53-86 92-95 GENERAL: The patient is awake, alert, and fully oriented, in no acute distress. HEAD: Normal with no signs of trauma. EYES: extraocular movements intact, sclera anicteric, conjunctiva clear. No ptosis. NECK: Trachea midline, full range of motion, supple. LUNGS: Breath sounds equal, clear to auscultation bilaterally, no wheezes, no crackles, no accessory muscle use. HEART: Regular rate and rhythm, S1, S2 without murmur, rub or gallop. ABDOMEN: Soft, nontender, nondistended, normoactive bowel sounds, no guarding, no rebound. EXTREMITIES: 2+ pulses, warm, well-perfused, no edema. NEUROLOGICAL: Cranial nerves II through X grossly intact. Normal speech, gait not observed. PSYCH: Normal mood, normal affect. SKIN: Warm, dry, normal turgor, no rashes or lesions noted Laboratory Results - last 24 hr 11/06/16 11/06/16 05:35 05:35 WBC 14.8 H RBC 4.44 Hgb 13.0 D Hct 38.6 MCV 86.9 MCH 29.2 MCHC 33.6 RDW 14.0 Plt Count 459 H D MPV 6.3 L Total Counted 100 Neutrophils % Y Neutrophils % (Manual) 84 H Lymphocytes % Y Lymphocytes % (Manual) 3 L Monocytes % (Manual) 8 D Myelocytes % (Man) 1 Sodium 133 L Potassium 4.5 Chloride 95 L Carbon Dioxide 28 Anion Gap 10 BUN 27 H Creatinine 1.1 Random Glucose 121 H Calcium 8.9 Magnesium 2.3 Active Medications Generic Name Dose Route Start Last Admin Trade Name Freq PRN Reason Stop Dose Admin Acetaminophen 650 mg 11/01/16 13:17 Tylenol - PO Q4H PRN FEVER OR PAIN Albuterol/Ipratropium 1 amp 11/04/16 14:37 11/06/16 06:15 Duoneb - NEB 1 amp Q6H PRN Administration WHEEZING Amlodipine Besylate 10 mg 11/02/16 10:00 11/06/16 10:57 Norvasc - PO 10 mg DAILY ANA M Administration Artificial Tears 1 drop 11/03/16 22:15 11/05/16 14:30 Artificial Tears OU 1 drop QID PRN Administration DRY EYES Atorvastatin Calcium 10 mg 11/02/16 22:00 11/05/16 22:02 Lipitor - PO Not Given HS ANA M Enoxaparin Sodium 40 mg 11/02/16 10:00 11/06/16 10:57 Lovenox - SQ 40 mg DAILY ANA M Administration Furosemide 20 mg 11/03/16 10:00 11/06/16 10:57 Lasix - PO 20 mg DAILY ANA M Administration Gabapentin 100 mg 11/02/16 10:00 11/06/16 10:57 Neurontin - PO 100 mg DAILY ANA M Administration Ceftriaxone Sodium 1 gm/ 50 mls @ 100 mls/hr 11/01/16 12:45 11/06/16 10:57 Dextrose IVPB 100 mls/hr DAILY ANA M Administration Levothyroxine Sodium 25 mcg 11/02/16 07:00 11/06/16 06:31 Synthroid - PO 25 mcg ACBK ANA M Administration Methylprednisolone Sodium Succinate 30 mg 11/05/16 20:00 11/06/16 08:42 Solu-Medrol - IVPB 30 mg BID@0800,2000 ANA M Administration Montelukast Sodium 10 mg 11/01/16 22:00 11/05/16 22:04 Singulair - PO 10 mg HS ANA M Administration Ondansetron HCl 4 mg 11/01/16 13:17 Zofran Injection IVPB Q6H PRN NAUSEA Ramipril 10 mg 11/02/16 10:00 11/06/16 10:57 Altace - PO 10 mg DAILY ANA M Administration Ranitidine HCl 150 mg 11/02/16 10:00 11/06/16 10:57 Zantac - PO 150 mg DAILY ANA M Administration ASSESSMENT/PLAN: 86 year male wit hypoxic respiratory failure 2/2 asthma/COPD exacerbation 2/2 RLL PNA #Acute asthma/ COPD exacerbation 2/2 pneumonia -Supplemental O2 as needed -Continue standing DuoNebs -Solu-Medrol 30mg IVPB q8h -Continue Singulair -CT Chest as per pulmonary to evaluate infiltrate vs fluid overload. -if CT chest shows fluid overload, will give extra lasix #Sepsis 2/2 Community acquired pneumonia -Ceftriaxone/Azithromycin day 6 -Urine for legionella negative -Sputum culture growing pseudomonas -Follow up blood cultures #Constipation -Miralax x1 -Monitor #Acute exacerbation of Systolic CHF 2/2 fluid overload -Lasix 20mg PO daily -Strict I/O -Daily weights #hyponatriemia- resolved -serum sodium 133 today -as per PCP, patient's baseline -fluid restriction #Abdominal pain - resolved -Diffuse pain, no focal tenderness, no change in bladder or bowel habits -nontender again today # HTN- controlled -Continue Norvasc #FEN -no fluids indicated at this time -monitor lytes -Sodium controlled diet #Prophylaxsis -Lovenox 40mg sq daily -no GI prophy indicated at this time #Dispo -admitted for the treatment of Asthma/COPD exacerbation 2/2 CAP Problem List - Problems (1) Abdominal pain Code(s): R10.9 - UNSPECIFIED ABDOMINAL PAIN (2) CHF (congestive heart failure) Code(s): I50.9 - HEART FAILURE, UNSPECIFIED (3) COPD exacerbation Code(s): J44.1 - CHRONIC OBSTRUCTIVE PULMONARY DISEASE W (ACUTE) EXACERBATION (4) HTN (hypertension) Code(s): I10 - ESSENTIAL (PRIMARY) HYPERTENSION (5) Hyponatremia Code(s): E87.1 - HYPO-OSMOLALITY AND HYPONATREMIA (6) Pneumonia Code(s): J18.9 - PNEUMONIA, UNSPECIFIED ORGANISM Qualifiers: Pneumonia type: due to unspecified organism Laterality: right Lung location: lower lobe of lung Qualified Code(s): J18.1 - Lobar pneumonia, unspecified organism Visit type - Emergency Visit Emergency Visit: Yes ED Registration Date: 11/01/16 Care time: The patient presented to the Emergency Department on the above date and was hospitalized for further evaluation of their emergent condition. - New Patient This patient is new to me today: No - Critical Care Critical Care patient: No
[2016-11-06] MEDS: ATORVASTATIN CA 10 MG TABLET (FP) PO SCH (21:07)
[2016-11-06] MEDS: MONTELUKAST NA 10 MG TABLET PO SCH (21:07)
[2016-11-06] MEDS: ARTIFICIAL TEARS (POLYVINYL ALCOHOL 1.4%) OPTH DROPS OU PRN (21:16)
--- NOTE | 2016-11-06 21:56 | EKG ---
Test Reason : Blood Pressure : / mmHG Vent. Rate : 095 BPM Atrial Rate : 050 BPM P-R Int : 000 ms QRS Dur : 142 ms QT Int : 388 ms P-R-T Axes : 000 263 069 degrees QTc Int : 487 ms Ventricular-paced rhythm WITH FREQUENT PREMATURE VENTRICULAR COMPLEXES ABNORMAL ECG WHEN COMPARED WITH ECG OF 01-NOV-2016 10:14, ELECTRONIC VENTRICULAR PACEMAKER HAS REPLACED SINUS RHYTHM Confirmed by NENA ECHEVERRIA, АЛЕКСАНДР ([id number]) on 11/06/2016 9:55:34 PM Referred By: Angelica ZHAO Confirmed By:АЛЕКСАНДР BARRETT MD
[2016-11-07] MEDS: LEVOTHYROXINE NA 25 MCG TABLET (FP) PO SCH (06:40)
[2016-11-07] MEDS: ARTIFICIAL TEARS (POLYVINYL ALCOHOL 1.4%) OPTH DROPS OU PRN (06:41)
[2016-11-07] MEDS ORDERED: PT OWN MED DRAWER 7, Y5N ONE (06:59)
[2016-11-07] MEDS ORDERED: DEXTROSE 5%-WATER - 50 ML IVPB ONE (09:28)
[2016-11-07] MEDS ORDERED: cefTRIAXone SODIUM 1 GM VIAL ONE (09:28)
[2016-11-07] MEDS: CEFTRIAXONE 1 GM in DEXTROSE 5%-WATER - 50 ML IVPB SCH (09:30)
[2016-11-07] MEDS: methylPREDNISolone NA SUCC 40 MG/1 ML VIAL IVPB SCH (09:30)
[2016-11-07] MEDS: FUROSEMIDE 20 MG TABLET (FP) PO SCH (09:30)
[2016-11-07] MEDS: RAMIPRIL 5 MG CAPSULE (FP) PO SCH (09:30)
[2016-11-07] MEDS: RANITIDINE HCL 150 MG TABLET (FP) PO SCH (09:30)
[2016-11-07] MEDS: amLODIPine BESYLATE 10 MG TABLET (FP) PO SCH (09:31)
[2016-11-07] MEDS: GABAPENTIN 100 MG CAPSULE (FP) PO SCH (09:31)
[2016-11-07] MEDS: ENOXAPARIN NA (PORCINE) 40 MG/0.4 ML DISP.SYRIN SQ SCH (09:31)
--- NOTE | 2016-11-07 11:00 | PN ---
Progress Note, Physician History of Present Illness: pulmonary alert,feeling better,comfortable,less cough - Current Medication List Current Medications: Active Medications Acetaminophen (Tylenol -) 650 mg PO Q4H PRN PRN Reason: FEVER OR PAIN Albuterol/Ipratropium (Duoneb -) 1 amp NEB Q6H PRN PRN Reason: WHEEZING Last Admin: 11/06/16 06:15 Dose: 1 amp Amlodipine Besylate (Norvasc -) 10 mg PO DAILY [facility] Last Admin: 11/07/16 09:31 Dose: 10 mg Artificial Tears (Artificial Tears) 1 drop OU QID PRN PRN Reason: DRY EYES Last Admin: 11/07/16 06:41 Dose: 1 drop Atorvastatin Calcium (Lipitor -) 10 mg PO HS [facility] Last Admin: 11/06/16 21:07 Dose: 10 mg Enoxaparin Sodium (Lovenox -) 40 mg SQ DAILY [facility] Last Admin: 11/07/16 09:31 Dose: 40 mg Furosemide (Lasix -) 20 mg PO DAILY [facility] Last Admin: 11/07/16 09:30 Dose: 20 mg Gabapentin (Neurontin -) 100 mg PO DAILY [facility] Last Admin: 11/07/16 09:31 Dose: 100 mg Ceftriaxone Sodium 1 gm/ (Dextrose) 50 mls @ 100 mls/hr IVPB DAILY [facility] Last Admin: 11/07/16 09:30 Dose: 100 mls/hr Levothyroxine Sodium (Synthroid -) 25 mcg PO ACBK [facility] Last Admin: 11/07/16 06:40 Dose: 25 mcg Methylprednisolone Sodium Succinate (Solu-Medrol -) 30 mg IVPB BID@0800,2000 [facility] Last Admin: 11/07/16 09:30 Dose: 30 mg Montelukast Sodium (Singulair -) 10 mg PO HS [facility] Last Admin: 11/06/16 21:07 Dose: 10 mg Ondansetron HCl (Zofran Injection) 4 mg IVPB Q6H PRN PRN Reason: NAUSEA Ramipril (Altace -) 10 mg PO DAILY [facility] Last Admin: 11/07/16 09:30 Dose: 10 mg Ranitidine HCl (Zantac -) 150 mg PO DAILY [facility] Last Admin: 11/07/16 09:30 Dose: 150 mg - Objective Vital Signs: Vital Signs Temperature 98 F 11/07/16 07:53 Pulse Rate 51 L 09/12/17 07:53 Respiratory Rate 20 11/07/16 08:00 Blood Pressure 139/67 11/07/16 07:53 O2 Sat by Pulse Oximetry (%) 96 11/07/16 08:00 Constitutional: Yes: Well Nourished, Calm Eyes: Yes: WNL HENT: Yes: WNL Neck: Yes: WNL Cardiovascular: Yes: Pulse Irregular, S1, S2 Respiratory: Yes: Rales (crackles R base) Gastrointestinal: Yes: Normal Bowel Sounds, Soft Extremities: Yes: WNL Edema: No Labs: CBC, BMP 11/06/16 05:35 11/06/16 05:35 - ....Imaging Cat Scan: Report Reviewed, Image Reviewed (RUL/RLL INFILTRATE) Assessment/Plan Problem List - Problems (1) Pneumonia Code(s): J18.9 - PNEUMONIA, UNSPECIFIED ORGANISM Qualifiers: Pneumonia type: due to unspecified organism Laterality: right Lung location: lower lobe of lung Qualified Code(s): J18.1 - Lobar pneumonia, unspecified organism (2) Asthma exacerbation Code(s): J45.901 - UNSPECIFIED ASTHMA WITH (ACUTE) EXACERBATION (3) COPD exacerbation Code(s): J44.1 - CHRONIC OBSTRUCTIVE PULMONARY DISEASE W (ACUTE) EXACERBATION (4) CHF (congestive heart failure) Code(s): I50.9 - HEART FAILURE, UNSPECIFIED (5) HTN (hypertension) Code(s): I10 - ESSENTIAL (PRIMARY) HYPERTENSION (6) Hyponatremia Code(s): E87.1 - HYPO-OSMOLALITY AND HYPONATREMIA Assessment/Plan Pneumonia clinically improving Acute Asthma/COPD Exacerbation improving Hyponatremia improving HTN CHF Hyperlipidemia Hypothyroidism - antibiotics - prednisone - inhaled bronchodilators standing and PRN - O2 to keep SpO2 >90% - lasix prn - monitor lytes - DVT prophylaxis - f/u chest x-ray outpatient DR LEON
--- NOTE | 2016-11-07 12:11 | PN ---
Teaching Attending Note Name of Resident: Angel Zimmerman ATTENDING PHYSICIAN STATEMENT I saw and evaluated the patient. I reviewed the resident's note and discussed the case with the resident. I agree with the resident's findings and plan as documented. SUBJECTIVE: Patient has no complaints. OBJECTIVE: Vital Signs Period Temp Pulse Resp BP Sys/Dumont Pulse Ox Last 24 Hr 97.8 F-98.3 F 51-93 18-20 116-140/42-82 93-96 HEART: S1S2, RRR LUNGS: Crackles right mid lung ABDOMEN: Soft, non-tender, non-distended, normal BS EXTREMITIES: No edema Current Medications Generic Name Dose Route Start Last Admin Trade Name Freq PRN Reason Stop Dose Admin Acetaminophen 650 mg 11/01/16 13:17 Tylenol - PO Q4H PRN FEVER OR PAIN Albuterol/Ipratropium 1 amp 11/04/16 14:37 11/06/16 06:15 Duoneb - NEB 1 amp Q6H PRN Administration WHEEZING Amlodipine Besylate 10 mg 11/02/16 10:00 11/07/16 09:31 Norvasc - PO 10 mg DAILY ANA M Administration Artificial Tears 1 drop 11/03/16 22:15 11/07/16 06:41 Artificial Tears OU 1 drop QID PRN Administration DRY EYES Atorvastatin Calcium 10 mg 11/02/16 22:00 11/06/16 21:07 Lipitor - PO 10 mg HS ANA M Administration Enoxaparin Sodium 40 mg 11/02/16 10:00 11/07/16 09:31 Lovenox - SQ 40 mg DAILY ANA M Administration Furosemide 20 mg 11/03/16 10:00 11/07/16 09:30 Lasix - PO 20 mg DAILY ANA M Administration Gabapentin 100 mg 11/02/16 10:00 11/07/16 09:31 Neurontin - PO 100 mg DAILY ANA M Administration Ceftriaxone Sodium 1 gm/ 50 mls @ 100 mls/hr 11/01/16 12:45 11/07/16 09:30 Dextrose IVPB 100 mls/hr DAILY ANA M Administration Levothyroxine Sodium 25 mcg 11/02/16 07:00 11/07/16 06:40 Synthroid - PO 25 mcg ACBK ANA M Administration Methylprednisolone Sodium Succinate 30 mg 11/05/16 20:00 11/07/16 09:30 Solu-Medrol - IVPB 30 mg BID@0800,1999 ANA M Administration Montelukast Sodium 10 mg 11/01/16 22:00 11/06/16 21:07 Singulair - PO 10 mg HS ANA M Administration Ondansetron HCl 4 mg 11/01/16 13:17 Zofran Injection IVPB Q6H PRN NAUSEA Prednisone 40 mg 11/08/16 10:00 Deltasone - PO DAILY AN AM Ramipril 10 mg 11/02/16 10:00 11/07/16 09:30 Altace - PO 10 mg DAILY ANA M Administration Ranitidine HCl 150 mg 11/02/16 10:00 11/07/16 09:30 Zantac - PO 150 mg DAILY ANA M Administration ASSESSMENT AND PLAN: This is an 86 year old woman with a history of COPD, hypothyroidism, HTN, hyperlipidemia, pacemaker who presented to the ER with SOB. 1. Sepsis secondary to pneumonia - Chest CT shows RUL/RLL infiltrates/atelectasis, bilateral lower lobe bronchial wall thickenng, bilateral lower lobe tree-in-bud nodules, scattered non-specific pulmonary nodules, AV calcification - Clinically improved with ceftriaxone - Discharge on Augmentin 2. Acute exacerbation of COPD - On SoluMedrol taper, Singulair, DuoNeb as needed - Discharge on Prednisone 3. Hyponatremia - Improving 4. HTN - Continue Altace, Norvasc, Lasix 5. Hypothyroidism - Continue Synthroid 6. Hyperlipidemia - Continue Lipitor
[2016-11-07 15:34] VITALS: BP 128/72; PULSE 56; TEMP 98.2
--- NOTE | 2016-11-07 22:01 | DS ---
Physical Exam: SUBJECTIVE: Patient seen and examined at bedside. His breathing continues to improve and he denies orthopnea. OBJECTIVE: Vital Signs Period Temp Pulse Resp BP Sys/Dumont Pulse Ox Last 24 Hr 98 F-98.3 F 51-83 16-20 116-140/42-72 96-98 PHYSICAL EXAM GENERAL: The patient is awake, alert, and fully oriented, in no acute distress. HEAD: Normal with no signs of trauma. EYES: extraocular movements intact, sclera anicteric, conjunctiva clear. NECK: Trachea midline, full range of motion, supple. LUNGS: Breath sounds equal, clear to auscultation bilaterally, no wheezes, no crackles, no accessory muscle use. HEART: Regular rate and rhythm, S1, S2 without murmur, rub or gallop. ABDOMEN: Soft, nontender, nondistended, normoactive bowel sounds, no guarding, no rebound. EXTREMITIES: 2+ pulses, warm, well-perfused, no edema. NEUROLOGICAL: Cranial nerves II through X grossly intact. Normal speech, gait not observed. PSYCH: Normal mood, normal affect. SKIN: Warm, dry, normal turgor, no rashes or lesions noted. LABS HOSPITAL COURSE: Date of Admission:11/01/16 86 yo m w/ PMH asthma/ COPD CAD s/p pacemaker, heart failure and HTN presents to the ED c/o worsening SOB and cough for 5 days. In the EDhe was afebrile and tachycardic saturating 92% on room air. A CXR showed right lower lobe consolidation and congestive changes. He was admitted for COPD exacerbation and pneumonia. He was treated with azithromycin, ceftriaxone, nebulizers, prednisone and lasix. He improved clinically. His shortness of breath resolved, his cough resolved, his orthopnea resolved and his saturation improved. His hospital stay was complicated by hyponatremia which was corrected with fluid restriction and diuresis. He was discharged home on 7 days of Augmentin BID and a long prednisone taper. He was instructed to follow up with his PMD and a avionics integration engineer. He was advised to call his doctor or to return to the ED if any of his symptoms got worse. Date of Discharge: 11/07/16 Minutes to complete discharge: 30 Discharge Summary Reason For Visit: PNEUMONIA Condition: Improved - Instructions Diet, Activity, Other Instructions: You were admitted for pneumonia. You may resume your all of your home medications tomorrow. Please take all of your inhalers as directed. You are being sent home on a new antibiotic called Levaquin. You should take this medication every day for another three days. Please take all of this medication for the whole time specified, even if you feel better. We are also sending you home on another new steroid medication which you must take in a specific way. Each pill is 5mg. Take 40mg tomorrow and then decrease it by 5 every other day 40mg on 11/08 and 11/09 35mg on 11/10 and 11/11, 30mg 11/12 and 11/13 25mg 11/14 and 11/15, 20 mg 11/16 and 11/17 15mg 11/18 and 11/19 10mg 11/20 and 11/21 5mg 11/22 and 11/23 You will need to get a repeat chest x-ray in 6-8 weeks in order to make sure the pneumonia is getting better. You will need to follow up with your primary care doctor, Dr. Martinez within one week of going home. You should also follow up with Dr. Lopez, the lung doctor. If you experience fever, chills, increased shortness of breath or if any of your symptoms get worse, please call your doctor or return to the Emergency Room Te sanchez ingresado por neumona. Usted puede empezar todos kamila medicamentos en casa maana. Por favor tome todos kamila inhaladores segn las indicaciones. Le est n enviando a casa con un nuevo antibitico llamado Levaquin. Debe melva trinidad medicamento todos los burt silke otros asuncion burt. Por favor, tome todo trinidad medicamento silke todo el tiempo especificado, incluso si se siente mejor. Tamgwyn ramirez estamos enviando a casa en otro medicamento nuevo esteroide que debe melva de aubrey manera especfica. Cada pldora es 5mg. Melva 40mg maana y luego disminuirlo por 5 cada dos burt. 40mg 11/08 y 11/09 35mg 11/10 y 11/11, 30mg 11/12 y 11/13 25mg 11/14 y 11/15, 20 mg 11/16 y 11/17 15mg 11/18 y 11/19 10mg 11/20 y 11/21 5mg 11/22 y 11/23 Necesitar repetir la radiografa de trax en 6-8 semanas para asegurarse de que la neumona est mejorando. Tendr que hacer un seguimiento con saul mdico de atencin primaria, el Dr. Martinez dentro de aubrey semana de irse a casa. Tambi n debe hacer un seguimiento con el Dr. Lopez, el mdico del pulmn. Si tiene fiebre , escalofros, falta de aire o si alguno de kamila sntomas empeora, llame a saul m dico o regrese a la gayathri de emergencias. Referrals: STAFF,NOT ON [Primary Care Provider] - Hernandez Lopez MD, [Staff Physician] - Disposition: HOME - Home Medications Comprehensive Discharge Medication List: Ambulatory Orders Albuterol Sulfate Inhaler - [Ventolin HFA Inhaler -] 1 - 2 inh PO QID PRN Amlodipine Besylate [Norvasc -] 10 mg PO DAILY 11/01/16 Furosemide [Lasix] 20 mg PO DAILY 11/01/16 Gabapentin 100 mg PO DAILY 11/01/16 Ibuprofen/Famotidine [Duexis 800-26.6 mg Tablet] 1 each PO DAILY 11/01/16 Levothyroxine [Synthroid -] 25 mcg PO DAILY 11/01/16 Montelukast Na [Singulair -] 10 mg PO HS 11/01/16 Ramipril 10 mg PO DAILY 11/01/16 Ranitidine HCl [Zantac] 150 mg PO DAILY 11/01/16 Salmeterol/Fluticasone [Advair 250Mcg/50Mcg -] 1 inh IH BID 11/01/16 Simvastatin 10 mg PO DAILY 11/01/16 Amox-Tr/K Cl [Augmentin 875-125mg Tablet -] 1 tab PO BID #14 tablet 11/07/16 Prednisone 5 mg PO DAILY #72 tablet 11/07/16 Problem List - Problems (1) Abdominal pain Code(s): R10.9 - UNSPECIFIED ABDOMINAL PAIN (2) CHF (congestive heart failure) Code(s): I50.9 - HEART FAILURE, UNSPECIFIED (3) COPD exacerbation Code(s): J44.1 - CHRONIC OBSTRUCTIVE PULMONARY DISEASE W (ACUTE) EXACERBATION (4) HTN (hypertension) Code(s): I10 - ESSENTIAL (PRIMARY) HYPERTENSION (5) Hyponatremia Code(s): E87.1 - HYPO-OSMOLALITY AND HYPONATREMIA (6) Pneumonia Code(s): J18.9 - PNEUMONIA, UNSPECIFIED ORGANISM Qualifiers: Pneumonia type: due to unspecified organism Laterality: right Lung location: lower lobe of lung Qualified Code(s): J18.1 - Lobar pneumonia, unspecified organism This patient is new to me today: No Emergency Visit: Yes ED Registration Date: 11/01/16 Care time: The patient presented to the Emergency Department on the above date and was hospitalized for further evaluation of their emergent condition. Critical Care patient: No - Discharge Referral Referred to [facility] No
[2016-11-08] MEDS ORDERED: predniSONE 20 MG TABLET (UD) PO SCH (10:00)
== END 2016-11-07 15:36 | disposition home or self-care (01) | DRG 871 ==
LOC: JER 09:54 → JERBED 12:02 → J4W 14:37
PROVIDERS: ADMIT Internal Medicine; ATTEND Internal Medicine
DX: A41.9 Sepsis, unspecified organism (principal); J18.9 Pneumonia, unspecified organism; I50.21 Acute systolic (congestive) heart failure; J96.91 Respiratory failure, unspecified with hypoxia; E87.1 Hypo-osmolality and hyponatremia; J44.0 Chronic obstructive pulmonary disease with (acute) lower respiratory infection; J44.1 Chronic obstructive pulmonary disease with (acute) exacerbation; J98.11 Atelectasis; E78.5 Hyperlipidemia, unspecified; E86.0 Dehydration; E03.9 Hypothyroidism, unspecified; K21.9 Gastro-esophageal reflux disease without esophagitis; K58.9 Irritable bowel syndrome, unspecified; I11.0 Hypertensive heart disease with heart failure; I44.0 Atrioventricular block, first degree; K59.00 Constipation, unspecified; I25.10 Atherosclerotic heart disease of native coronary artery without angina pectoris; Z95.0 Presence of cardiac pacemaker
CPT/HCPCS: 36415; 36600; 71010-TC; 71020-TC; 71250-TC; 80048; 80053; 82375; 82803; 83050; 83605; 83735; 83880; 83930; 83935; 84443; 84484; 85025; 85027; 87040; 87070; 87186; 87205; 87899; 93005; 93010; 94640; 99285-25

== ENCOUNTER 2017-08-17 10:42 | Inpatient (IN) | payer OTHER ==
--- NOTE | 2017-08-17 10:57 | PDOC ---
History of Present Illness - General Chief Complaint: Congestive Heart Failure Stated Complaint: SOB Time Seen by Provider: 08/17/17 10:56 - History of Present Illness Initial Comments: 08/17/17 11:08 Mr. Abdi is an 87 yo male w/ pmh of COPD, asthma (never been hospitalized / intubated for asthma), HTN, HLD, CHF, afib s/p pacemaker, arthritis, GERD, IBS, and hypothyroidism BIBA for evaluation of SOB increased while he was on his walk earlier. He reports he has been having these symptoms since Sunday with additional yellow productive sputum. EMS gave him 1 breathing treatment and he has felt better since. He also endorses 1 episode of palpitations last night that resolved on its own. The patient denies chest pain, headache and dizziness. Denies fever, chills, nausea, vomit, diarrhea and constipation. Denies dysuria, frequency, urgency and hematuria. Allergies: NKDA Past History - Past Medical History Allergies/Adverse Reactions: Allergies Allergy/AdvReac Type Severity Reaction Status Date / Time No Known Allergies Allergy Unverified 08/17/17 10:55 Home Medications: Ambulatory Orders Albuterol Sulfate Inhaler - [Ventolin HFA Inhaler -] 1 - 2 inh PO QID PRN Amlodipine Besylate [Norvasc -] 10 mg PO DAILY 11/01/16 Furosemide [Lasix] 20 mg PO DAILY 11/01/16 Gabapentin 100 mg PO TID 11/01/16 Montelukast Na [Singulair -] 10 mg PO HS 11/01/16 Salmeterol/Fluticasone [Advair 250Mcg/50Mcg -] 1 inh IH BID 11/01/16 Simvastatin 20 mg PO DAILY 11/01/16 Albuterol 0.083% Nebulizer Dory [Ventolin 0.083% Nebulizer Soln -] 1 amp NEB QID PRN 08/17/17 Aspirin [Aspirin EC] 81 mg PO DAILY 08/17/17 Cetirizine HCl 10 mg PO DAILY 08/17/17 Folic Acid 1 mg PO DAILY 08/17/17 Linaclotide [Linzess] 145 mcg PO DAILY 08/17/17 Asthma: Yes Cardiac Disorders: Yes GI Disorders: Yes (IBS, GERD) HTN: Yes Hypercholesterolemia: Yes Thyroid Disease: Yes - Surgical History Cardiac Surgery: Yes (pacemaker) - Suicide/Smoking/Psychosocial Hx Smoking History: Former smoker Have you smoked in the past 12 months: No Hx Alcohol Use: No Drug/Substance Use Hx: No Review of Systems - Review of Systems Comments:: 08/17/17 11:30 GENERAL/CONSTITUTIONAL: No fever or chills. No weakness. HEAD, EYES, EARS, NOSE AND THROAT: No change in vision. No ear pain or discharge. No sore throat. CARDIOVASCULAR: +Shortness of breath w/ palpitations as described. No chest pain RESPIRATORY: No cough, wheezing, or hemoptysis. GASTROINTESTINAL: No nausea, vomiting, diarrhea or constipation. GENITOURINARY: No dysuria, frequency, or change in urination. MUSCULOSKELETAL: No joint or muscle swelling or pain. No neck or back pain. SKIN: No rash NEUROLOGIC: No headache, vertigo, loss of consciousness, or change in strength/ sensation. ENDOCRINE: No increased thirst. No abnormal weight change HEMATOLOGIC/LYMPHATIC: No anemia, easy bleeding, or history of blood clots. ALLERGIC/IMMUNOLOGIC: No hives or skin allergy. *Physical Exam - Physical Exam Comments: 08/17/17 11:30 GENERAL: Awake, alert, and fully oriented, in no acute distress HEAD: No signs of trauma, normocephalic, atraumatic EYES: PERRLA, EOMI, sclera anicteric, conjunctiva clear ENT: Auricles normal inspection, hearing grossly normal, nares patent, oropharynx clear without exudates. Moist mucosa NECK: Normal ROM, supple, no lymphadenopathy, JVD, or masses LUNGS: +Diffuse wheezes appreciated. No distress, speaks full sentences HEART: Regular rate and rhythm, normal S1 and S2, no murmurs, rubs or gallops, peripheral pulses normal and equal bilaterally. ABDOMEN: Soft, nontender, normoactive bowel sounds. No guarding, no rebound. No masses EXTREMITIES: Normal inspection, Normal range of motion, no edema. No clubbing or cyanosis. NEUROLOGICAL: Cranial nerves II through XII grossly intact. Normal speech, normal gait, no focal sensorimotor deficits SKIN: Warm, Dry, normal turgor, no rashes or lesions noted. ED Treatment Course - LABORATORY CBC & Chemistry Diagram: 08/17/17 11:00 08/17/17 11:00 Medical Decision Making - Medical Decision Making 08/17/17 13:12 Mr. Abdi is an 87 yo male w/ pmh as described who presents for evaluation of shortness of breath for the last 3 days. Patient noted to have rectal temperature of 98.4. Workup begun for r/o pneumonia as patient noted to have diffuse wheezes and recent admission for pneumonia 4 weeks ago. 08/17/17 13:20 Patient noted to have infiltrate on exam. Vanc/Zosyn started for treatment of hospital acquired pneumonia. 08/17/17 13:27 Inpatient team paged for admission. 08/17/17 15:30 Patient admitted for further evaluation. *DC/Admit/Observation/Transfer Diagnosis at time of Disposition: Pneumonia Qualifiers: Pneumonia type: due to unspecified organism Laterality: unspecified laterality Lung location: unspecified part of lung Qualified Code(s): J18.9 - Pneumonia, unspecified organism - Discharge Dispostion Decision to Admit order: Yes - Referrals Referrals: ON STAFF,NOT [Primary Care Provider] - - Patient Instructions - Post Discharge Activity
[2017-08-17 11:05] VITALS: BMI 25.3
[2017-08-17] MEDS ORDERED: ALBUTEROL SO4 2.5/IPRATROPIUM 0.5 INH SOL 3 ML VIAL.NEB. NEB ONE (11:14)
[2017-08-17] MEDS: ALBUTEROL SO4 2.5/IPRATROPIUM 0.5 INH SOL 3 ML VIAL.NEB. NEB SCH ×4 (11:17→11:56)
--- NOTE | 2017-08-17 11:18 | PDOC ---
Attending Attestation - Resident Resident Name: Edmond Leon - ED Attending Attestation I have performed the following: I have examined & evaluated the patient, The case was reviewed & discussed with the resident, I agree w/resident's findings & plan, Exceptions are as noted - HPI HPI: 08/17/17 13:04 The patient is an 87 year old male brought in by EMS, with a significant past medical history of COPD,Afib pacemaker, asthma, HTN, CHF, GERD, IBS, HLD, and hypothyroidism who presents to the emergency department for evaluation of shortness of breath. The patient reports dyspnea on exertion while walking with his aide this morning. The patient reports multiple episodes of shortness of breath beginning on sunday. He reports a productive cough with yellow sputum. The patient states he had pneumonia last month. Of note, EMS administered duoneb treatment prior to arrival and he reports mild improvement in sxs. Denies CP, F/V, abd pain, focal weakness/numbness Allergies: NKDA Social History: Former smoker. No reported alcohol or drug use. Surgical History: Pacemaker - Physicial Exam PE: 08/17/17 13:04 GENERAL: Awake, alert, and fully oriented, in mild resp distress ENT: Auricles normal inspection, hearing grossly normal, nares patent, oropharynx clear without exudates. Moist mucosa LUNGS: Diminshed BS at R lung base. No wheezes, and no crackles HEART: Regular rate and rhythm, normal S1 and S2, no murmurs, rubs or gallops ABDOMEN: Soft, nontender, normoactive bowel sounds. No guarding, no rebound. No masses EXTREMITIES: Normal range of motion, no edema. No clubbing or cyanosis. No cords, erythema, or tenderness NEUROLOGICAL: Normal speech, cranial nerves intact, 5/5 strength in all 4 extremities, normal sensation to light touch in all 4 extremities SKIN: Warm, Dry, normal turgor, no rashes or lesions noted. - Medical Decision Making 08/17/17 13:16 87yo M with MMP including pseudomonas PNA presents to the ED with productive cough, SOB, hypoxia to 89%. Exam with diminished BS at R lung base. Likely PNA, will cover with zosyn based on previous sputum as well as vanco. Heart Score/ECG Review #1 08/17/17 13:18 Twelve-lead EKG was performed and reviewed by me. Initial for evaluation, rate 83. Normal axis. No ST elevations or T-wave inversions.
[2017-08-17 12:08] LABS: BASO % 0.2 % (0-2.0); EOS % 7.2 % (0-4.5); HEMATOCRIT 42.4 % (35.4-49); HEMOGLOBIN 14.2 GM/dL (11.7-16.9); LYMPH % 7.6 % (8-40); MCH 29.4 pg (25.7-33.7); MCHC 33.4 g/dl (32.0-35.9); MEAN CELL VOLUME 87.9 fl (80-96); MEAN PLT VOLUME 7.1 fl (7.5-11.1); MONO % 8.4 % (3.8-10.2); NEUT % 76.6 % (42.8-82.8); PLATELET COUNT 353 K/MM3 (134-434); RBC 4.82 M/mm3 (4.00-5.60); RDW 13.1 % (11.9-15.9); WHITE BLOOD COUNT 8.4 K/mm3 (4.0-10.0)
[2017-08-17 12:57] LABS: ALBUMIN 3.3 g/dl (3.4-5.0); ALK PHOS 108 U/L (45-117); ANION GAP 8 (8-16); BLOOD UREA NITROGEN 12 mg/dL (7-18); CALCIUM 8.6 mg/dL (8.5-10.1); CHLORIDE 92 mmol/L (98-107); CO2 31 mmol/L (21-32); CREATININE 0.9 mg/dL (0.7-1.3); GLUCOSE,RANDOM 110 mg/dL (74-106); POTASSIUM 3.6 mmol/L (3.5-5.1); SGOT/AST 46 U/L (15-37); SGPT/ALT 39 U/L (12-78); SODIUM 131 mmol/L (136-145)
[2017-08-17 13:03] LABS: BILIRUBIN,TOTAL 0.5 mg/dL (0.2-1.0)
[2017-08-17] MEDS ORDERED: VANCOMYCIN 1,000 MG in DEXTROSE 5%-WATER - 250 ML IVPB ONE (13:20)
[2017-08-17] MEDS ORDERED: PIPERACILLIN/TAZOB 3.375 GM 3.375 GM in DEXTROSE 5%-WATER - 50 ML IVPB ONE (13:20)
[2017-08-17] MEDS ORDERED: PIPERACILLIN/TAZOB 3.375 GM 3.375 GM/50 ML BAG IVPB ONE (13:32)
[2017-08-17] MEDS ORDERED: VANCOMYCIN 1 GRAM (PRE-DOCKED) 1,000 MG/250 ML BAG IVPB ONE (14:30)
--- NOTE | 2017-08-17 21:08 | HP ---
CHIEF COMPLAINT: SOB PCP: Dr Pan [place] Bread Icer: Dr. John Lacy [facility] ([phone]) Privacy Director: Dr. Kia Asher, [facility] ([phone]) HISTORY OF PRESENT ILLNESS: 87 year-old male with a PMH significant for HTN, HLD, HF,atrial fibrillation s/ p PPM, asthma/COPD, GERD, IBS, and hypothyroidism who presented to the ED today with SOB. About 4 days ago, patient developed "cold-like" viral symptoms. His symptoms did not improve. Patient's home health aide came to see him today ( last saw hime 2 days before) and observed him with significant SOB and GALLAGHER and activated EMS. Patient has had a persistent cough productive of whitish- yellowish sputum. He denies fever, sweats, chills, nausea, vomiting, diarrhea. He denies chest pain, palpitations, diaphoresis, PND, orthopnea, lower extremity edema. Recent Travel: No PAST MEDICAL HISTORY: Hypertension Hyperlipidemia Asthma/COPD Atrial fibrillaion Heart failure GERD IBS Hypothyroidism PAST SURGICAL HISTORY: PPM x 2 years Social History: Smoking: former Alcohol: no Drugs: no Family History: Allergies No Known Allergies Allergy (Unverified 08/17/17 10:55) HOME MEDICATIONS: Home Medications Medication Instructions Recorded Albuterol Sulfate Inhaler - 1 - 2 inh PO QID PRN 11/01/16 [Ventolin HFA Inhaler -] Amlodipine Besylate [Norvasc -] 10 mg PO DAILY 11/01/16 Furosemide [Lasix] 20 mg PO DAILY 11/01/16 Gabapentin 100 mg PO TID 11/01/16 Montelukast Na [Singulair -] 10 mg PO HS 11/01/16 Salmeterol/Fluticasone [Advair 1 inh IH BID 11/01/16 250Mcg/50Mcg -] Simvastatin 20 mg PO DAILY 11/01/16 Albuterol 0.083% Nebulizer Dory 1 amp NEB QID PRN 08/17/17 [Ventolin 0.083% Nebulizer Soln -] Aspirin [Aspirin EC] 81 mg PO DAILY 08/17/17 Cetirizine HCl 10 mg PO DAILY 08/17/17 Folic Acid 1 mg PO DAILY 08/17/17 Linaclotide [Linzess] 145 mcg PO DAILY 08/17/17 REVIEW OF SYSTEMS CONSTITUTIONAL: Absent: fever, chills, diaphoresis, generalized weakness, malaise, loss of appetite, weight change HEENT: +rhinorrhea, nasal congestion Absent: throat pain, throat swelling, difficulty swallowing, mouth swelling, ear pain, eye pain, visual changes CARDIOVASCULAR: Absent: chest pain, syncope, palpitations, irregular heart rate, lightheadedness , peripheral edema RESPIRATORY: +cough, SOB, GALLAGHER Absent: orthopnea, wheezing, stridor, hemoptysis GASTROINTESTINAL: Absent: abdominal pain, abdominal distension, nausea, vomiting, diarrhea, constipation, melena, hematochezia GENITOURINARY: Absent: dysuria, frequency, urgency, hesitancy, hematuria, flank pain, genital pain MUSCULOSKELETAL: Absent: myalgia, arthralgia, joint swelling, back pain, neck pain SKIN: Absent: rash, itching, pallor HEMATOLOGIC/IMMUNOLOGIC: Absent: easy bleeding, easy bruising, lymphadenopathy, frequent infections ENDOCRINE: Absent: unexplained weight gain, unexplained weight loss, heat intolerance, cold intolerance NEUROLOGIC: Absent: headache, focal weakness or paresthesias, dizziness, unsteady gait, seizure, mental status changes, bladder or bowel incontinence PSYCHIATRIC: Absent: anxiety, depression, suicidal or homicidal ideation, hallucinations. PHYSICAL EXAMINATION Vital Signs - 24 hr 08/17/17 08/17/17 08/17/17 10:56 11:00 12:49 Temperature 99 F Pulse Rate 87 Pulse Rate [ 80 Right] Respiratory 24 18 Rate Blood Pressure 152/65 Blood Pressure 121/58 [Right Arm] O2 Sat by Pulse 89 L 96 97 Oximetry (%) 08/17/17 08/17/17 08/17/17 14:49 15:30 17:26 Temperature 99 F Pulse Rate 81 Pulse Rate [ 83 Right] Respiratory 18 20 Rate Blood Pressure 137/67 Blood Pressure 137/63 [Right Arm] O2 Sat by Pulse 96 96 Oximetry (%) GENERAL: Awake, alert, and fully oriented, in no acute distress. HEAD: Normal with no signs of trauma. EYES: Pupils equal, round and reactive to light, extraocular movements intact, sclera anicteric, conjunctiva clear. No lid lag. EARS, NOSE, THROAT: Ears normal, nares patent, oropharynx clear without exudates. Moist mucous membranes. NECK: Normal range of motion, supple without lymphadenopathy, JVD, or masses. LUNGS: Diffuse expiratory wheezing, persistent cough HEART: Irregular, S1 and S2 without murmur, rub or gallop. ABDOMEN: Soft, nontender, not distended MUSCULOSKELETAL: Normal range of motion at all joints. No bony deformities or tenderness. No CVA tenderness. UPPER EXTREMITIES: 2+ pulses, warm, well-perfused. No cyanosis. No clubbing. No peripheral edema. LOWER EXTREMITIES: 2+ pulses, warm, well-perfused. No calf tenderness. No peripheral edema. NEUROLOGICAL: Cranial nerves II-XII intact. Normal speech. Laboratory Results - last 24 hr 08/17/17 08/17/17 08/17/17 11:00 11:00 12:00 WBC 8.4 D RBC 4.82 Hgb 14.2 Hct 42.4 MCV 87.9 MCH 29.4 MCHC 33.4 RDW 13.1 Plt Count 353 D MPV 7.1 L D Absolute Neuts (auto) 6.4 Neutrophils % 76.6 Lymphocytes % 7.6 L D Monocytes % 8.4 D Eosinophils % 7.2 H D Basophils % 0.2 D Nucleated RBC % 0 Sodium 131 L Potassium 3.6 Chloride 92 L Carbon Dioxide 31 Anion Gap 8 BUN 12 D Creatinine 0.9 Creat Clearance w eGFR > 60 Random Glucose 110 H Calcium 8.6 Total Bilirubin 0.5 AST 46 H D ALT 39 D Alkaline Phosphatase 108 D Creatine Kinase 164 Creatine Kinase Index 4.6 CK-MB (CK-2) 7.68 H Troponin I < 0.02 B-Natriuretic Peptide 1894.10 H Total Protein 7.0 Albumin 3.3 L ASSESSMENT/PLAN: 87 year-old male with a PMH significant for HTN, HLD, asthma/COPD, atrial fibrillation s/p PPM, HF, GERD, IBS, and hypothyroidism. Admitted for CAP. Community acquired pneumonia --08/17 CXR: new right base infiltrate --afebrile, no leukocytosis --had pseudomonas pneumonia 10/2016 that was sensitive to cephalosporins and treated successfully with ceftriaxone and augmentin --start azithromycin, ceftriaxone Asthma/COPD exacerbation --bronchospasm on exam, start solu-medrol 40mg q8h --albuterol nebs scheduled --Symbicort, Claritin, Singulair Hypertension --BP stable --continue amlodipine Hyperlipidemia --continue Lipitor Atrial fibrillation --rate well-controlled --not on a/c --will check with innovation manager/[facility] Heart failure --continue home dose Lasix PO 20mg daily Hyponatremia --improving GERD --not on meds IBS --on Linzess Visit type - Emergency Visit Emergency Visit: Yes ED Registration Date: 08/17/17 Care time: The patient presented to the Emergency Department on the above date and was hospitalized for further evaluation of their emergent condition. - New Patient This patient is new to me today: Yes Date on this admission: 08/19/17 - Critical Care Critical Care patient: No Hospitalist Screening - Colonoscopy Questionnaire Colonoscopy Questionnaire: Colonoscopy Questionnaire - Patient: 50 - 75 years old and never had a screening colonoscopy: No History of colon or rectal polyps, or CA: No History of IBD, Crohn's disease or UC: No History of abdominal radiation therapy as a child: No - Relative: 1 with colon or rectal CA, or polyps at age 60 or younger: Unknown Colon or rectal CA diagnosed at age 45 or younger: Unknown Multiple relatives with colon or rectal CA: Unknown - Outcome: Screening Result: Negative Screen
[2017-08-17] MEDS ORDERED: AZITHROMYCIN 500 MG TABLET PO STA (21:13)
[2017-08-17] MEDS: ALBUTEROL SO4 0.083% IH SOL 2.5 MG/3 ML VIAL.NEB. NEB SCH (21:45)
[2017-08-17] MEDS: methylPREDNISolone NA SUCC 40 MG/1 ML VIAL IVPUSH SCH (22:07)
[2017-08-17] MEDS: HEPARIN NA (PORCINE) 5,000 UNITS/ML 1ML VIAL SQ SCH (22:07)
[2017-08-17] MEDS: ATORVASTATIN CA 10 MG TABLET (FP) PO SCH (22:07)
[2017-08-17] MEDS: BUDESONIDE/FORMETEROL FUMARATE 80/4.5 mcg INHALER IH SCH (22:08)
[2017-08-17] MEDS: MONTELUKAST NA 10 MG TABLET PO SCH (22:08)
[2017-08-17] MEDS: GABAPENTIN 100 MG CAPSULE (FP) PO SCH (22:08)
[2017-08-18] MEDS: methylPREDNISolone NA SUCC 40 MG/1 ML VIAL IVPUSH SCH ×3 (03:00→17:12)
[2017-08-18] MEDS: HEPARIN NA (PORCINE) 5,000 UNITS/ML 1ML VIAL SQ SCH ×3 (06:45→20:59)
[2017-08-18] MEDS: GABAPENTIN 100 MG CAPSULE (FP) PO SCH ×3 (06:45→20:59)
[2017-08-18] MEDS: ALBUTEROL SO4 0.083% IH SOL 2.5 MG/3 ML VIAL.NEB. NEB SCH ×4 (07:40→19:52)
[2017-08-18 08:11] LABS: BASO % 0.2 % (0-2.0); EOS % 0.2 % (0-4.5); HEMATOCRIT 39.7 % (35.4-49); HEMOGLOBIN 13.5 GM/dL (11.7-16.9); LYMPH % 7.1 % (8-40); MCH 29.6 pg (25.7-33.7); MEAN CELL VOLUME 87.1 fl (80-96); MEAN PLT VOLUME 6.9 fl (7.5-11.1); MONO % 1.1 % (3.8-10.2); NEUT % 91.4 % (42.8-82.8); PLATELET COUNT 340 K/MM3 (134-434); RBC 4.55 M/mm3 (4.00-5.60); RDW 13.3 % (11.9-15.9); WHITE BLOOD COUNT 5.1 K/mm3 (4.0-10.0)
[2017-08-18 09:06] LABS: ALBUMIN 3.1 g/dl (3.4-5.0); ALK PHOS 98 U/L (45-117); ANION GAP 13 (8-16); BILIRUBIN,TOTAL 0.5 mg/dL (0.2-1.0); BLOOD UREA NITROGEN 12 mg/dL (7-18); CALCIUM 9.1 mg/dL (8.5-10.1); CHLORIDE 96 mmol/L (98-107); CO2 25 mmol/L (21-32); CREATININE 0.8 mg/dL (0.7-1.3); GLUCOSE,RANDOM 152 mg/dL (74-106); MAGNESIUM 2.1 mg/dL (1.8-2.4); POTASSIUM 4.3 mmol/L (3.5-5.1); SGOT/AST 39 U/L (15-37); SGPT/ALT 37 U/L (12-78); SODIUM 134 mmol/L (136-145); TOT PROT 6.7 g/dl (6.4-8.2)
[2017-08-18] MEDS ORDERED: PT OWN MED DRAWER 7, Y5N ONE (09:40)
[2017-08-18] MEDS: LORATADINE 10 MG TABLET PO SCH (09:50)
[2017-08-18] MEDS: ASPIRIN COATED 81 MG TABLET.EC PO SCH (09:50)
[2017-08-18] MEDS: FOLIC ACID 1 MG TABLET (FP) PO SCH (09:50)
[2017-08-18] MEDS: amLODIPine BESYLATE 10 MG TABLET (FP) PO SCH (09:50)
[2017-08-18] MEDS: AZITHROMYCIN 250 MG TABLET PO SCH (09:51)
[2017-08-18] MEDS: BUDESONIDE/FORMETEROL FUMARATE 80/4.5 mcg INHALER IH SCH ×2 (09:54→21:00)
[2017-08-18] MEDS ORDERED: PATIENT'S OWN MEDICATION (NON-FORMULARY) (Linaclotide [Linzess] 145 MCG) PO SCH (10:00)
[2017-08-18] MEDS ORDERED: FUROSEMIDE 20 MG TABLET (FP) PO SCH (10:00)
[2017-08-18 11:08] LABS: PLATELET ESTIMATE ADEQUATE
[2017-08-18] MEDS ORDERED: cefTRIAXone SODIUM 1 GM VIAL ONE (11:31)
[2017-08-18] MEDS ORDERED: DEXTROSE 5%-WATER - 50 ML IVPB ONE (11:31)
[2017-08-18] MEDS: CEFTRIAXONE 1 GM in DEXTROSE 5%-WATER - 50 ML IVPB SCH (11:35)
--- NOTE | 2017-08-18 15:48 | PN ---
Physical Exam: SUBJECTIVE: Patient seen and examined at bedside. OBJECTIVE: Vital Signs Period Temp Pulse Resp BP Sys/Dumont Pulse Ox Last 24 Hr 98.3 F-99.1 F 81-88 20-20 126-137/65-77 95-97 GENERAL: The patient is awake, alert, and fully oriented, in no acute distress. LUNGS: Crackles shelter up bilaterally, no wheezing HEART: Regular rate and rhythm, S1, S2 ABDOMEN: Soft, nontender, nondistended EXTREMITIES: 2+ pulses, warm, well-perfused, no edema. NEUROLOGICAL: Cranial nerves II through XII grossly intact. Normal speech. Laboratory Results - last 24 hr 08/18/17 08/18/17 07:25 07:25 WBC 5.1 RBC 4.55 Hgb 13.5 Hct 39.7 MCV 87.1 MCH 29.6 MCHC 34.0 RDW 13.3 Plt Count 340 MPV 6.9 L Absolute Neuts (auto) 4.7 Neutrophils % 91.4 H Neutrophils % (Manual) 93.0 H Lymphocytes % 7.1 L Lymphocytes % (Manual) 5.0 L D Monocytes % 1.1 L D Monocytes % (Manual) 1 L D Eosinophils % 0.2 D Eosinophils % (Manual) 1.0 Basophils % 0.2 Nucleated RBC % 0 Platelet Estimate Adequate Platelet Comment Large platelets Sodium 134 L Potassium 4.3 Chloride 96 L Carbon Dioxide 25 Anion Gap 13 BUN 12 Creatinine 0.8 Creat Clearance w eGFR > 60 Random Glucose 152 H D Calcium 9.1 Magnesium 2.1 Total Bilirubin 0.5 AST 39 H ALT 37 Alkaline Phosphatase 98 D Total Protein 6.7 Albumin 3.1 L Active Medications Generic Name Dose Route Start Last Admin Trade Name Tyrelq PRN Reason Stop Dose Admin Albuterol Sulfate 1 amp 08/17/17 21:15 08/18/17 11:45 Ventolin 0.083% Nebulizer Soln - NEB 1 amp RQID ANA M Administration Amlodipine Besylate 10 mg 08/18/17 10:00 08/18/17 09:50 Norvasc - PO 10 mg DAILY ANA M Administration Aspirin 81 mg 08/18/17 10:00 08/18/17 09:50 Ecotrin - PO 81 mg DAILY ANA M Administration Atorvastatin Calcium 10 mg 08/17/17 22:00 08/17/17 22:07 Lipitor - PO 10 mg HS ANA M Administration Azithromycin 250 mg 08/18/17 10:00 08/18/17 09:51 Zithromax - PO 08/21/17 10:01 250 mg DAILY ANA M Administration Budesonide/Formoterol Fumarate 2 puff 08/17/17 22:00 08/18/17 09:54 Symbicort 80/4.5mcg - IH 2 puff BID ANA M Administration Folic Acid 1 mg 08/18/17 10:00 08/18/17 09:50 Folic Acid - PO 1 mg DAILY ANA M Administration Furosemide 20 mg 08/18/17 10:00 08/18/17 09:49 Lasix - PO 20 mg DAILY ANA M Administration Gabapentin 100 mg 08/17/17 22:00 08/18/17 13:17 Neurontin - PO 100 mg TID ANA M Administration Heparin Sodium (Porcine) 5,000 unit 08/17/17 22:00 08/18/17 13:16 Heparin - SQ 5,000 unit TID ANA M Administration Ceftriaxone Sodium 1 gm/ 50 mls @ 100 mls/hr 08/18/17 10:00 08/18/17 11:35 Dextrose IVPB 100 mls/hr DAILY ANA M Administration Protocol Loratadine 10 mg 08/18/17 10:00 08/18/17 09:50 Claritin - PO 10 mg DAILY ANA M Administration Methylprednisolone Sodium Succinate 40 mg 08/17/17 21:15 08/18/17 09:49 Solu-Medrol - IVPUSH 40 mg Q8H-IV ANA M Administration Montelukast Sodium 10 mg 08/17/17 22:00 08/17/17 22:08 Singulair - PO 10 mg HS ANA M Administration Non-Formulary Medication 145 mcg 08/18/17 10:00 Linaclotide [Linzess] PO DAILY [facility] ASSESSMENT/PLAN: 87 year-old male with a PMH significant for HTN, HLD, asthma/COPD, atrial fibrillation s/p PPM, HF, GERD, IBS, and hypothyroidism. Admitted for CAP. Community acquired pneumonia --08/17 CXR: new right base infiltrate --afebrile, no leukocytosis, wheezing is better --had pseudomonas pneumonia 10/2016 that was sensitive to cephalosporins and treated successfully with ceftriaxone and augmentin --continue azithromycin, ceftriaxone Asthma/COPD exacerbation --continue solu-medrol --albuterol nebs scheduled --Symbicort --Claritin, Singulair Hypertension --BP stable --continue amlodipine Hyperlipidemia --continue Lipitor Atrial fibrillation --rate well-controlled --not on a/c Heart failure --crackles on exam, increase Lasix PO to 40mg daily Hyponatremia --improving GERD --not on meds IBS --on Linzess DVT prophylaxis: subq heparin Visit type - Emergency Visit Emergency Visit: Yes ED Registration Date: 08/17/17 Care time: The patient presented to the Emergency Department on the above date and was hospitalized for further evaluation of their emergent condition. - New Patient This patient is new to me today: No - Critical Care Critical Care patient: No
[2017-08-18] MEDS ORDERED: FUROSEMIDE 20 MG TABLET (FP) PO STA (16:03)
[2017-08-18] MEDS: ATORVASTATIN CA 10 MG TABLET (FP) PO SCH (20:59)
[2017-08-18] MEDS: MONTELUKAST NA 10 MG TABLET PO SCH (20:59)
[2017-08-19] MEDS: methylPREDNISolone NA SUCC 40 MG/1 ML VIAL IVPUSH SCH ×3 (02:00→21:32)
[2017-08-19] MEDS: GABAPENTIN 100 MG CAPSULE (FP) PO SCH ×3 (06:06→21:32)
[2017-08-19] MEDS: HEPARIN NA (PORCINE) 5,000 UNITS/ML 1ML VIAL SQ SCH ×3 (06:06→21:32)
[2017-08-19] MEDS: ALBUTEROL SO4 0.083% IH SOL 2.5 MG/3 ML VIAL.NEB. NEB SCH ×4 (07:35→20:13)
[2017-08-19] MEDS ORDERED: cefTRIAXone SODIUM 1 GM VIAL ONE (11:16)
[2017-08-19] MEDS ORDERED: PT OWN MED DRAWER 7, Y5N ONE (11:16)
[2017-08-19] MEDS: CEFTRIAXONE 1 GM in DEXTROSE 5%-WATER - 50 ML IVPB SCH (11:18)
[2017-08-19] MEDS: ASPIRIN COATED 81 MG TABLET.EC PO SCH (11:19)
[2017-08-19] MEDS: FUROSEMIDE 40 MG TABLET (FP) PO SCH (11:19)
[2017-08-19] MEDS: FOLIC ACID 1 MG TABLET (FP) PO SCH (11:19)
[2017-08-19] MEDS: LORATADINE 10 MG TABLET PO SCH (11:19)
[2017-08-19] MEDS: amLODIPine BESYLATE 10 MG TABLET (FP) PO SCH (11:19)
[2017-08-19] MEDS: BUDESONIDE/FORMETEROL FUMARATE 80/4.5 mcg INHALER IH SCH ×2 (11:20→21:32)
[2017-08-19] MEDS: AZITHROMYCIN 250 MG TABLET PO SCH (11:20)
[2017-08-19] MEDS ORDERED: methylPREDNISolone NA SUCC 125 MG/2 ML VIAL IVPUSH ONE (12:15)
--- NOTE | 2017-08-19 15:44 | PN ---
Physical Exam: SUBJECTIVE: Patient seen and examined sitting on edge of bed. Feeling better. OBJECTIVE: Vital Signs Period Temp Pulse Resp BP Sys/D[place]ont Pulse Ox Last 24 Hr 97.7 F-98 F 79-91 18-79 114-137/65-84 96 GENERAL: The patient is awake, alert, and fully oriented, in no acute distress. LUNGS: CTA, no wheezing, crackles resolved HEART: Regular rate and rhythm, S1, S2 ABDOMEN: Soft, nontender, nondistended EXTREMITIES: 2+ pulses, warm, well-perfused, no edema. NEUROLOGICAL: Cranial nerves II through XII grossly intact. Normal speech. Active Medications Generic Name Dose Route Start Last Admin Trade Name Freq PRN Reason Stop Dose Admin Albuterol Sulfate 1 amp 08/17/17 21:15 08/19/17 11:45 Ventolin 0.083% Nebulizer Soln - NEB 1 amp RQID ANA M Administration Amlodipine Besylate 10 mg 08/18/17 10:00 08/19/17 11:19 Norvasc - PO 10 mg DAILY ANA M Administration Aspirin 81 mg 08/18/17 10:00 08/19/17 11:19 Ecotrin - PO 81 mg DAILY ANA M Administration Atorvastatin Calcium 10 mg 08/17/17 22:00 08/18/17 20:59 Lipitor - PO 10 mg HS ANA M Administration Azithromycin 250 mg 08/18/17 10:00 08/19/17 11:20 Zithromax - PO 08/21/17 10:01 250 mg DAILY ANA M Administration Budesonide/Formoterol Fumarate 2 puff 08/17/17 22:00 08/19/17 11:20 Symbicort 80/4.5mcg - IH 2 puff BID ANA M Administration Folic Acid 1 mg 08/18/17 10:00 08/19/17 11:19 Folic Acid - PO 1 mg DAILY ANA M Administration Furosemide 40 mg 08/19/17 10:00 08/19/17 11:19 Lasix - PO 40 mg DAILY ANA M Administration Gabapentin 100 mg 08/17/17 22:00 08/19/17 14:59 Neurontin - PO 100 mg TID ANA M Administration Heparin Sodium (Porcine) 5,000 unit 08/17/17 22:00 08/19/17 14:58 Heparin - SQ 5,000 unit TID ANA M Administration Ceftriaxone Sodium 1 gm/ 50 mls @ 100 mls/hr 08/18/17 10:00 08/19/17 11:18 Dextrose IVPB 100 mls/hr DAILY ANA M Administration Protocol Loratadine 10 mg 08/18/17 10:00 08/19/17 11:19 Claritin - PO 10 mg DAILY ANA M Administration Methylprednisolone Sodium Succinate 40 mg 08/19/17 22:00 Solu-Medrol - IVPUSH BID ANA M Montelukast Sodium 10 mg 08/17/17 22:00 08/18/17 20:59 Singulair - PO 10 mg HS ANA M Administration Non-Formulary Medication 145 mcg 08/18/17 10:00 Linaclotide [Linzess] PO DAILY ANA M ASSESSMENT/PLAN 87 year-old male with a PMH significant for HTN, HLD, asthma/COPD, atrial fibrillation s/p PPM, HF, GERD, IBS, and hypothyroidism. Admitted for CAP. Community acquired pneumonia --08/17 CXR: new right base infiltrate --afebrile, no leukocytosis, no wheezing --had pseudomonas pneumonia 10/2016 that was sensitive to cephalosporins and treated successfully with ceftriaxone and augmentin --continue azithromycin, ceftriaxone Asthma/COPD exacerbation --continue solu-medrol --albuterol nebs scheduled --Symbicort --Claritin, Singulair --pre post am Hypertension --BP stable --continue amlodipine Hyperlipidemia --continue Lipitor Atrial fibrillation --rate well-controlled --not on a/c Heart failure --crackles resolved, continue increased Lasix Hyponatremia --improving GERD --not on meds IBS --on Linzess DVT prophylaxis: subq heparin Visit type - Emergency Visit Emergency Visit: Yes ED Registration Date: 08/17/17 Care time: The patient presented to the Emergency Department on the above date and was hospitalized for further evaluation of their emergent condition. - New Patient This patient is new to me today: No - Critical Care Critical Care patient: No
[2017-08-19] MEDS: ATORVASTATIN CA 10 MG TABLET (FP) PO SCH (21:32)
[2017-08-19] MEDS: MONTELUKAST NA 10 MG TABLET PO SCH (21:32)
[2017-08-19] MEDS: POLYETHYLENE GLYCOL 3350 119 GM BTL PO SCH (21:33)
[2017-08-19] MEDS ORDERED: DOCUSATE SODIUM 100 MG CAPSULE (FP) PO SCH (22:00)
[2017-08-20] MEDS: GABAPENTIN 100 MG CAPSULE (FP) PO SCH ×2 (05:47→13:25)
[2017-08-20] MEDS: HEPARIN NA (PORCINE) 5,000 UNITS/ML 1ML VIAL SQ SCH ×2 (05:47→13:18)
[2017-08-20] MEDS: ALBUTEROL SO4 0.083% IH SOL 2.5 MG/3 ML VIAL.NEB. NEB SCH ×2 (07:25→12:01)
[2017-08-20] MEDS ORDERED: cefTRIAXone SODIUM 1 GM VIAL ONE (10:15)
[2017-08-20] MEDS ORDERED: DEXTROSE 5%-WATER - 50 ML IVPB ONE (10:15)
[2017-08-20] MEDS: methylPREDNISolone NA SUCC 40 MG/1 ML VIAL IVPUSH SCH (10:24)
[2017-08-20] MEDS: LORATADINE 10 MG TABLET PO SCH (10:24)
[2017-08-20] MEDS: ASPIRIN COATED 81 MG TABLET.EC PO SCH (10:24)
[2017-08-20] MEDS: FOLIC ACID 1 MG TABLET (FP) PO SCH (10:24)
[2017-08-20] MEDS: AZITHROMYCIN 250 MG TABLET PO SCH (10:24)
[2017-08-20] MEDS: CEFTRIAXONE 1 GM in DEXTROSE 5%-WATER - 50 ML IVPB SCH (10:24)
[2017-08-20] MEDS: FUROSEMIDE 40 MG TABLET (FP) PO SCH (10:24)
[2017-08-20] MEDS: amLODIPine BESYLATE 10 MG TABLET (FP) PO SCH (10:24)
[2017-08-20] MEDS: POLYETHYLENE GLYCOL 3350 119 GM BTL PO SCH (10:25)
[2017-08-20] MEDS: BUDESONIDE/FORMETEROL FUMARATE 80/4.5 mcg INHALER IH SCH (10:25)
[2017-08-20 10:42] VITALS: BP 126/67; TEMP 97.1
--- NOTE | 2017-08-20 10:56 | DS ---
Physical Exam: SUBJECTIVE: Patient seen and examined OBJECTIVE: Vital Signs Period Temp Pulse Resp BP Sys/Dumont Pulse Ox Last 24 Hr 97.1 F-97.9 F 71-91 20-23 114-132/61-67 94-94 PHYSICAL EXAM GENERAL: The patient is awake, alert, and fully oriented, in no acute distress. HEAD: Normal with no signs of trauma. EYES: PERRL, extraocular movements intact, sclera anicteric, conjunctiva clear. ENT: Ears normal, nares patent, oropharynx clear without exudates, moist mucous membranes. NECK: Trachea midline, full range of motion, supple. LUNGS: Breath sounds equal, clear to auscultation bilaterally, no wheezes, no crackles, no accessory muscle use. HEART: Regular rate and rhythm, S1, S2 without murmur, rub or gallop. ABDOMEN: Soft, nontender, nondistended, normoactive bowel sounds, no guarding, no rebound, no hepatosplenomegaly, no masses. EXTREMITIES: 2+ pulses, warm, well-perfused, no edema. NEUROLOGICAL: Cranial nerves II through XII grossly intact. Normal speech, gait not observed. PSYCH: Normal mood, normal affect. SKIN: Warm, dry, normal turgor, no rashes or lesions noted. LABS HOSPITAL COURSE: Date of Admission:08/17/17 Date of Discharge: 08/20/17 Minutes to complete discharge: 35 Discharge Summary Reason For Visit: PNEUMONIA Current Active Problems Pneumonia (Acute) - Instructions Referrals: ON STAFF,NOT [Primary Care Provider] - - Home Medications Comprehensive Discharge Medication List: Ambulatory Orders Albuterol Sulfate Inhaler - [Ventolin HFA Inhaler -] 1 - 2 inh PO QID PRN Amlodipine Besylate [Norvasc -] 10 mg PO DAILY 11/01/16 Furosemide [Lasix] 20 mg PO DAILY 11/01/16 Gabapentin 100 mg PO TID 11/01/16 Montelukast Na [Singulair -] 10 mg PO HS 11/01/16 Salmeterol/Fluticasone [Advair 250Mcg/50Mcg -] 1 inh IH BID 11/01/16 Simvastatin 20 mg PO DAILY 11/01/16 Albuterol 0.083% Nebulizer [place] [Ventolin 0.083% Nebulizer Soln -] 1 amp NEB QID PRN 08/17/17 Aspirin [Aspirin EC] 81 mg PO DAILY 08/17/17 Cetirizine HCl 10 mg PO DAILY 08/17/17 Folic Acid 1 mg PO DAILY 08/17/17 Linaclotide [Linzess] 145 mcg PO DAILY 08/17/17 This patient is new to me today: No Emergency Visit: Yes ED Registration Date: 08/17/17 Care time: The patient presented to the Emergency Department on the above date and was hospitalized for further evaluation of their emergent condition. Critical Care patient: No - Discharge Referral Referred to [facility] No
[2017-08-20 12:02] VITALS: PULSE 104
--- NOTE | 2017-08-20 22:04 | EKG ---
Test Reason : Blood Pressure : / mmHG Vent. Rate : 083 BPM Atrial Rate : 375 BPM P-R Int : 000 ms QRS Dur : 086 ms QT Int : 344 ms P-R-T Axes : 000 -07 034 degrees QTc Int : 404 ms ATRIAL FIBRILLATION LOW VOLTAGE QRS CANNOT RULE OUT ANTEROSEPTAL INFARCT , AGE UNDETERMINED ABNORMAL ECG WHEN COMPARED WITH ECG OF 05-NOV-2016 09:40, ATRIAL FIBRILLATION HAS REPLACED ELECTRONIC VENTRICULAR PACEMAKER Confirmed by NENA ECHEVERRIA, АЛЕКСАНДР ([id number]) on 08/20/2017 10:04:37 PM Referred By: Confirmed By:АЛЕКСАНДР BARRETT MD
== END 2017-08-20 17:23 | disposition home or self-care (01) | DRG 194 ==
LOC: JER 10:42 → JERBED 15:30 → J6S 17:00
PROVIDERS: ADMIT Internal Medicine; ATTEND Nurse Practitioner Acute Care
DX: J18.9 Pneumonia, unspecified organism (principal); E87.1 Hypo-osmolality and hyponatremia; J44.1 Chronic obstructive pulmonary disease with (acute) exacerbation; J45.909 Unspecified asthma, uncomplicated; E78.5 Hyperlipidemia, unspecified; I48.91 Unspecified atrial fibrillation; K21.9 Gastro-esophageal reflux disease without esophagitis; E03.9 Hypothyroidism, unspecified; I11.0 Hypertensive heart disease with heart failure; I50.9 Heart failure, unspecified; K58.9 Irritable bowel syndrome, unspecified; Z95.0 Presence of cardiac pacemaker; Z87.891 Personal history of nicotine dependence
CPT/HCPCS: 36415; 71045-TC-FY; 80053; 82550; 82553; 83735; 83880; 84484; 85025; 87040; 87086; 93005; 93010; 94640; 94761; 99285-25; J1644; J7620

== ENCOUNTER 2018-06-10 10:12 | Inpatient (IN) | payer OTHER ==
--- NOTE | 2018-06-10 10:48 | PDOC ---
History of Present Illness - General Chief Complaint: Shortness of Breath Stated Complaint: sob, congestion, cough, fever Time Seen by Provider: 06/10/18 10:39 - History of Present Illness Initial Comments: 06/10/18 10:48 88M with pmh of COPD,Afib pacemaker, asthma, HTN, CHF, GERD, IBS, HLD, and hypothyroidism who presents to the emergency department for evaluation of shortness of breath and cough since yesterday. Cough productive of clear sputum. Lives alone with aide. No sick contact. Occasional visits from daughter. 06/10/18 12:36 PCP: Dr Pan Ackerly Control Systems Engineer: Dr. John Lacy Ackerly ([phone]) Thermodynamics Teacher: Dr. Kia Asher, [facility] ([phone]) Past History - Past Medical History Allergies/Adverse Reactions: Allergies Allergy/AdvReac Type Severity Reaction Status Date / Time No Known Allergies Allergy Unverified 06/10/18 10:19 Home Medications: Ambulatory Orders Albuterol Sulfate Inhaler - [Ventolin Hfa Inhaler -] 1 - 2 inh PO QID 06/10/18 Amlodipine Besylate [Norvasc -] 10 mg PO DAILY 06/10/18 Aspirin 81 mg PO DAILY 06/10/18 Cetirizine HCl 10 mg PO DAILY 06/10/18 Fluticasone Prop 0.05% Nasal [Flonase -] 1 - 2 spray NS DAILY 06/10/18 Fluticasone Propion/Salmeterol [Wixela 500-50 Inhub] 1 each IH DAILY 06/10/18 Folic Acid 1 mg PO DAILY 06/10/18 Furosemide [Lasix] 40 mg PO DAILY 06/10/18 Gabapentin 300 mg PO BID 06/10/18 Ibuprofen/Famotidine [Duexis 800-26.6 mg Tablet] 1 each PO DAILY 06/10/18 Linaclotide [Linzess] 145 mcg PO DAILY 06/10/18 Montelukast Na [Singulair -] 10 mg PO HS 06/10/18 Omeprazole 40 mg PO DAILY 06/10/18 Simvastatin 20 mg PO DAILY 06/10/18 Umeclidinium [place] [Incruse Ellipta] 62.5 mcg IH DAILY 06/10/18 Asthma: Yes Cardiac Disorders: Yes COPD: Yes GI Disorders: Yes (IBS, GERD) HTN: Yes Hypercholesterolemia: Yes Thyroid Disease: Yes - Surgical History Cardiac Surgery: Yes (pacemaker) - Immunization History Immunization Up to Date: Yes - Suicide/Smoking/Psychosocial Hx Smoking History: Never smoked Have you smoked in the past 12 months: No Information on smoking cessation initiated: No 'Breaking Loose' booklet given: 08/17/17 Hx Alcohol Use: No Drug/Substance Use Hx: No Substance Use Type: None Review of Systems - Review of Systems Able to Perform ROS?: Yes Is the patient limited Somali proficient: No Constitutional: No: Symptoms Reported HEENTM: No: Symptoms Reported Respiratory: Yes: See HPI Cardiac (ROS): No: Symptoms Reported ABD/GI: No: Symptoms Reported : No: Symptoms Reported Musculoskeletal: No: Symptoms Reported Integumentary: No: Symptoms Reported Neurological: No: Symptoms reported All Other Systems: Reviewed and Negative *Physical Exam - Vital Signs Last Vital Signs Temp Pulse Resp BP Pulse Ox 99.6 F 91 H 19 127/53 L 92 L 06/10/18 10:18 06/10/18 10:18 06/10/18 10:18 06/10/18 10:18 06/10/18 10:18 - Physical Exam General Appearance: Yes: Nourished, Appropriately Dressed. No: Apparent Distress HEENT: positive: EOMI, DOYLE, Normal ENT Inspection Respiratory/Chest: positive: Normal Breath Sounds, Crackles (llbase), Rales. negative: Chest Tender, Respiratory Distress Cardiovascular: positive: Regular Rhythm, Regular Rate, S1, S2 Gastrointestinal/Abdominal: positive: Normal Bowel Sounds, Flat, Soft. negative : Tender Musculoskeletal: positive: Normal Inspection. negative: CVA Tenderness Extremity: positive: Normal Capillary Refill, Normal Inspection, Normal Range of Motion Integumentary: positive: Normal Color, Dry, Warm Neurologic: positive: Fully Oriented ED Treatment Course - LABORATORY CBC & Chemistry Diagram: 06/10/18 11:00 06/10/18 11:00 Medical Decision Making - Medical Decision Making 06/10/18 12:36 88 M with cough + SOB. Low grade fever in the ED based on usual temp, suspecting infectious pna vs viral vs chf vs ACS. -Will obtain labs, xray, flu swab, blood cultures as well. 06/10/18 12:34 - Flu negative. CXR with LLL consolidation Will cover for CAP with ceftriaxone and azithromycin then admit to med surg *DC/Admit/Observation/Transfer Diagnosis at time of Disposition: Pneumonia - Discharge Dispostion Decision to Admit order: Yes - Referrals - Patient Instructions - Post Discharge Activity
[2018-06-10 11:13] LABS: BASO % 0.4 % (0-2.0); EOS % 1.5 % (0-4.5); HEMATOCRIT 38.3 % (35.4-49); HEMOGLOBIN 12.8 GM/dL (11.7-16.9); LYMPH % 8.2 % (8-40); MCH 29.8 pg (25.7-33.7); MCHC 33.6 g/dl (32.0-35.9); MEAN CELL VOLUME 88.7 fl (80-96); MONO % 9.1 % (3.8-10.2); NEUT % 80.8 % (42.8-82.8); PLATELET COUNT 204 K/MM3 (134-434); RBC 4.32 M/mm3 (4.00-5.60); RDW 14.9 % (11.9-15.9)
[2018-06-10 11:21] LABS: EPI CELLS 0.5 /HPF (0-5/HPF); PH,URINE 6.5 (5.0-8.0); URINE APPEARANCE CLEAR; URINE BACTERIA 1.4 /hpf (NEGATIVE); URINE BILIRUBIN NEGATIVE (NEGATIVE); URINE CASTS 1 /lpf (0-8); URINE COLOR YELLOW; URINE GLUCOSE (UA) NEGATIVE (NEGATIVE); URINE KETONE NEGATIVE (NEGATIVE); URINE LEUK ESTERASE NEGATIVE (NEGATIVE); URINE NITRITE NEGATIVE (NEGATIVE); URINE PROTEIN 1+ (NEGATIVE); URINE RBC 0 /hpf (0-4); URINE WBC 1 /hpf (0-5)
[2018-06-10 11:43] LABS: ALBUMIN 3.1 g/dl (3.4-5.0); ALK PHOS 89 U/L (45-117); ANION GAP 6 MMOL/L (8-16); BILIRUBIN,TOTAL 0.8 mg/dL (0.2-1); BLOOD UREA NITROGEN 14 mg/dL (7-18); CALCIUM 8.4 mg/dL (8.5-10.1); CHLORIDE 94 mmol/L (98-107); CO2 29 mmol/L (21-32); CREATININE 1.2 mg/dL (0.55-1.3); GLUCOSE,RANDOM 91 mg/dL (74-106); POTASSIUM 3.6 mmol/L (3.5-5.1); SGOT/AST 28 U/L (15-37); SGPT/ALT 22 U/L (13-61); SODIUM 129 mmol/L (136-145); TOT PROT 6.1 g/dl (6.4-8.2)
--- NOTE | 2018-06-10 12:26 | PDOC ---
Attending Attestation - Resident Resident Name: Juan J Ibanez - ED Attending Attestation I have performed the following: I have examined & evaluated the patient, The case was reviewed & discussed with the resident, I agree w/resident's findings & plan, Exceptions are as noted - HPI HPI: 06/10/18 12:21 The patient is an 88 year old male, with a significant PMH of COPD, Afib, CHF, GERD, HTN, HLD, and hypothyroidism, who presents to the emergency department for evaluation of 1 day of SOB upon exertion and productive cough - producing clear sputum. No F/C. Denies CP. Denies leg swelling. The patient denies chest pain, headache and dizziness. Denies fever, chills, nausea, vomit, diarrhea and constipation. Denies dysuria, frequency, urgency and hematuria. Allergies: NKA Social history: None reported PCP: Dr. Pan ([facility]) - Physicial Exam PE: 06/10/18 12:21 "GENERAL: Awake, alert, and fully oriented, in no acute distress. HEAD: No signs of trauma EYES: PERRLA, EOMI, sclera anicteric, conjunctiva clear ENT: Auricles normal inspection, hearing grossly normal, nares patent, oropharynx clear without exudates. Moist mucosa NECK: Nontender, no stepoffs, Normal ROM, supple, no lymphadenopathy, JVD, or masses LUNGS: + bibasilar rales HEART: Regular rate and rhythm, normal S1 and S2, no murmurs, rubs or gallops ABDOMEN: Soft, nontender, normoactive bowel sounds. No guarding, no rebound. No masses EXTREMITIES: Normal range of motion, no edema. No clubbing or cyanosis. No cords, erythema, or tenderness NEUROLOGICAL: Cranial nerves II through XII intact. 5/5 strength and sensation in all extremities, Normal speech, normal gait, normal cerebellar function SKIN: Warm, Dry, normal turgor, no rashes or lesions noted. - Medical Decision Making 06/10/18 12:21 88 M with cough + SOB. Low-grade temp in ED, suspect infectious process. Will evaluate for CHF and ACS as well. - Labs, trop, BNP - CXR 06/10/18 12:34 CXR with LLL consolidation Will cover for CAP Admit to hospital
[2018-06-10] MEDS ORDERED: CEFTRIAXONE 1 GM in DEXTROSE 5%-WATER - 100 ML IVPB ONE (12:27)
[2018-06-10] MEDS ORDERED: AZITHROMYCIN IVPB 500 MG in DEXTROSE 5%-WATER - 250 ML IVPB ONE (12:29)
[2018-06-10] MEDS ORDERED: AZITHROMYCIN IVPB 500 MG/250 ML BAG IVPB ONE (12:46)
[2018-06-10] MEDS ORDERED: CEFTRIAXONE 1 GM/50 ML BAG ONE (12:47)
--- NOTE | 2018-06-10 12:54 | EKG ---
Test Reason : Blood Pressure : / mmHG Vent. Rate : 065 BPM Atrial Rate : 081 BPM P-R Int : 336 ms QRS Dur : 088 ms QT Int : 354 ms P-R-T Axes : 097 006 026 degrees QTc Int : 368 ms SINUS RHYTHM WITH MARKED SINUS ARRHYTHMIA WITH 1ST DEGREE A-V BLOCK WITH OCCASIONAL PREMATURE VENTRICULAR COMPLEXES WITH VENTRICULAR ESCAPE COMPLEXES LOW VOLTAGE QRS CANNOT RULE OUT ANTEROSEPTAL INFARCT (CITED ON OR BEFORE 17-AUG-2017) ABNORMAL ECG WHEN COMPARED WITH ECG OF 17-AUG-2017 11:00, NOW IN SINUS RHYTHM Confirmed by SABAS CARRASCO MD ([id number]) on 06/10/2018 12:53:58 PM Referred By: Confirmed By:SABAS CARRASCO MD
[2018-06-10 16:32] VITALS: BMI 25.9
--- NOTE | 2018-06-10 17:53 | HP ---
Admitting History and Physical - Primary Care Physician PCP: Charisse Vasquez - Admission History of Present Illness: 88 year old male, with a significant PMH of COPD, Afib, CHF, GERD, HTN, HLD, and hypothyroidism, who presents to the emergency department for evaluation of 1 day of SOB upon exertion and productive cough - producing clear sputum. No F/ C. Denies CP. Denies leg swelling. The patient denies chest pain, headache and dizziness. Denies fever, chills, nausea, vomit, diarrhea and constipation. Denies dysuria, frequency, urgency and hematuria. - Past Medical History Cardiovascular: Yes: CHF, HTN, Hyperlipdemia Pulmonary: Yes: Asthma, COPD Gastrointestinal: Yes: Inflamatory Bowel Disease Endocrine: Yes: Hypothyroidism - Smoking History Smoking history: Former smoker Have you smoked in the past 12 months: No Aproximately how many cigarettes per day: 0 If you are a former smoker, when did you quit?: LONG TIME - Alcohol/Substance Use Hx Alcohol Use: No Home Medications - Allergies Allergies/Adverse Reactions: Allergies Allergy/AdvReac Type Severity Reaction Status Date / Time No Known Allergies Allergy Unverified 06/10/18 10:19 - Home Medications Home Medications: Ambulatory Orders Albuterol Sulfate Inhaler - [Ventolin Hfa Inhaler -] 1 - 2 inh PO QID 06/10/18 Amlodipine Besylate [Norvasc -] 10 mg PO DAILY 06/10/18 Aspirin 81 mg PO DAILY 06/10/18 Cetirizine HCl 10 mg PO DAILY 06/10/18 Fluticasone Prop 0.05% Nasal [Flonase -] 1 - 2 spray NS DAILY 06/10/18 Fluticasone Propion/Salmeterol [Wixela 500-50 Inhub] 1 each IH DAILY 06/10/18 Folic Acid 1 mg PO DAILY 06/10/18 Furosemide [Lasix] 40 mg PO DAILY 06/10/18 Gabapentin 300 mg PO BID 06/10/18 Ibuprofen/Famotidine [Duexis 800-26.6 mg Tablet] 1 each PO DAILY 06/10/18 Linaclotide [Linzess] 145 mcg PO DAILY 06/10/18 Montelukast Na [Singulair -] 10 mg PO HS 06/10/18 Omeprazole 40 mg PO DAILY 06/10/18 Simvastatin 20 mg PO DAILY 06/10/18 Umeclidinium [place] [Incruse Ellipta] 62.5 mcg IH DAILY 06/10/18 Physical Examination Vital Signs: Vital Signs Temperature 98.9 F 06/10/18 16:24 Pulse Rate 86 06/10/18 16:24 Respiratory Rate 20 06/10/18 16:24 Blood Pressure 137/71 06/10/18 16:24 O2 Sat by Pulse Oximetry (%) 96 06/10/18 14:56 Constitutional: Yes: No Distress HENT: Yes: Atraumatic Neck: Yes: Supple Cardiovascular: Yes: Regular Rate and Rhythm Respiratory: Yes: Rhonchi, Wheezes Gastrointestinal: Yes: Normal Bowel Sounds Extremities: Yes: WNL Edema: No Neurological: Yes: Alert, Oriented Labs: CBC, BMP 06/10/18 11:00 06/10/18 11:00 Imaging - Results X-ray: Report Reviewed Problem List - Problems (1) Pneumonia Assessment/Plan: iv abx id and pulmonary Code(s): J18.9 - PNEUMONIA, UNSPECIFIED ORGANISM Qualifiers: (2) CHF (congestive heart failure) Assessment/Plan: stable on lasix Code(s): I50.9 - HEART FAILURE, UNSPECIFIED (3) COPD exacerbation Assessment/Plan: on meds Code(s): J44.1 - CHRONIC OBSTRUCTIVE PULMONARY DISEASE W (ACUTE) EXACERBATION (4) HTN (hypertension) Assessment/Plan: on meds Code(s): I10 - ESSENTIAL (PRIMARY) HYPERTENSION Assessment/Plan Laboratory Tests 06/10/18 06/10/18 06/10/18 11:00 11:00 11:00 WBC 11.0 H RBC 4.32 Hgb 12.8 Hct 38.3 MCV 88.7 MCH 29.8 MCHC 33.6 RDW 14.9 D Plt Count 204 D MPV 7.0 L Absolute Neuts (auto) 8.9 H Neutrophils % 80.8 Lymphocytes % 8.2 Monocytes % 9.1 D Eosinophils % 1.5 D Basophils % 0.4 Nucleated RBC % 0 Sodium 129 L Potassium 3.6 Chloride 94 L Carbon Dioxide 29 Anion Gap 6 L BUN 14 Creatinine 1.2 Creat Clearance w eGFR 57.01 Random Glucose 91 Calcium 8.4 L Total Bilirubin 0.8 AST 28 ALT 22 Alkaline Phosphatase 89 Creatine Kinase 95 Troponin I < 0.02 B-Natriuretic Peptide Total Protein 6.1 L Albumin 3.1 L Urine Color Yellow Urine Appearance Clear Urine pH 6.5 Ur Specific [place] 1.013 Urine Protein 1+ H Urine Glucose (UA) Negative Urine Ketones Negative Urine Blood Negative Urine Nitrite Negative Urine Bilirubin Negative Urine Urobilinogen 1.0 Ur Leukocyte Esterase Negative Urine WBC (Auto) 1 Urine RBC (Auto) 0 Urine Casts (Auto) 1 U Epithel Cells (Auto) 0.5 Urine Bacteria (Auto) 1.4 Influenza A (Rapid) Influenza B (Rapid) 06/10/18 06/10/18 11:00 11:00 WBC RBC Hgb Hct MCV MCH MCHC RDW Plt Count MPV Absolute Neuts (auto) Neutrophils % Lymphocytes % Monocytes % Eosinophils % Basophils % Nucleated RBC % Sodium Potassium Chloride Carbon Dioxide Anion Gap BUN Creatinine Creat Clearance w eGFR Random Glucose Calcium Total Bilirubin AST ALT Alkaline Phosphatase Creatine Kinase Troponin I B-Natriuretic Peptide 1411.0 H Total Protein Albumin Urine Color Urine Appearance Urine pH Ur Specific [place] Urine Protein Urine Glucose (UA) Urine Ketones Urine Blood Urine Nitrite Urine Bilirubin Urine Urobilinogen Ur Leukocyte Esterase Urine WBC (Auto) Urine RBC (Auto) Urine Casts (Auto) U Epithel Cells (Auto) Urine Bacteria (Auto) Influenza A (Rapid) Negative Influenza B (Rapid) Negative Active Medications Generic Name Dose Route Start Last Admin Trade Name Tyrelq PRN Reason Stop Dose Admin Acetaminophen 650 mg 06/11/18 01:25 06/11/18 01:35 Tylenol - PO 650 mg Q8H PRN Administration FEVER Albuterol Sulfate 1 amp 06/11/18 11:05 Ventolin 0.083% Nebulizer Soln - NEB Q4H PRN SHORT OF BREATH/WHEEZING Albuterol/Ipratropium 1 amp 06/11/18 14:00 06/11/18 14:30 Duoneb - NEB 1 amp RTID ANA M Administration Amlodipine Besylate 10 mg 06/11/18 10:00 06/11/18 09:25 Norvasc - PO 10 mg DAILY ANA M Administration Aspirin 81 mg 06/11/18 10:00 06/11/18 09:26 Asa - PO 81 mg DAILY ANA M Administration Atorvastatin Calcium 10 mg 06/10/18 22:00 06/10/18 21:39 Lipitor - PO 10 mg HS ANA M Administration Folic Acid 1 mg 06/11/18 10:00 06/11/18 09:26 Folic Acid - PO 1 mg DAILY ANA M Administration Furosemide 40 mg 06/11/18 10:00 06/11/18 09:26 Lasix - PO 40 mg DAILY ANA M Administration Heparin Sodium (Porcine) 5,000 unit 06/10/18 22:00 06/11/18 09:33 Heparin - SQ 5,000 unit BID ANA M Administration Levofloxacin 500 mg in 100 mls @ 100 mls/hr 06/11/18 11:15 Levaquin 500 Mg Premixed Ivpb - IVPB DAILY ANA M Protocol Methylprednisolone Sodium Succinate 40 mg 06/11/18 11:15 06/11/18 18:01 Solu-Medrol - IVPUSH 40 mg Q8H-IV ANA M Administration Montelukast Sodium 10 mg 06/10/18 22:00 06/10/18 21:39 Singulair - PO 10 mg HS ANA M Administration Non-Formulary Medication 145 mcg 06/11/18 10:00 Linaclotide [Linzess] PO DAILY ANA M Pantoprazole Sodium 40 mg 06/11/18 10:00 06/11/18 09:26 Protonix - PO 40 mg DAILY ANA M Administration
[2018-06-10] MEDS ORDERED: ALBUTEROL SO4 2.5/IPRATROPIUM 0.5 INH SOL 3 ML VIAL.NEB. NEB PRN (17:56)
[2018-06-10] MEDS: ATORVASTATIN CA 10 MG TABLET (FP) PO SCH (21:39)
[2018-06-10] MEDS: MONTELUKAST NA 10 MG TABLET PO SCH (21:39)
[2018-06-10] MEDS: HEPARIN NA (PORCINE) 5,000 UNITS/ML 1ML VIAL SQ SCH (21:39)
[2018-06-11] MEDS ORDERED: ACETAMINOPHEN 325 MG TABLET (FP) PO PRN (01:25)
[2018-06-11] MEDS: amLODIPine BESYLATE 10 MG TABLET (FP) PO SCH (09:25)
[2018-06-11] MEDS: PANTOPRAZOLE 40 MG TABLET (FP) PO SCH (09:26)
[2018-06-11] MEDS: FOLIC ACID 1 MG TABLET (FP) PO SCH (09:26)
[2018-06-11] MEDS: ASPIRIN 81 MG CHEWABLE TABLETS PO SCH (09:26)
[2018-06-11] MEDS: FUROSEMIDE 40 MG TABLET (FP) PO SCH (09:26)
[2018-06-11] MEDS: HEPARIN NA (PORCINE) 5,000 UNITS/ML 1ML VIAL SQ SCH ×2 (09:33→21:04)
[2018-06-11] MEDS ORDERED: PATIENT'S OWN MEDICATION (NON-FORMULARY) (Simvastatin [Simvastatin] 20 MG) PO SCH (10:00)
[2018-06-11] MEDS ORDERED: PATIENT'S OWN MEDICATION (NON-FORMULARY) (Omeprazole [Omeprazole] 40 MG) PO SCH (10:00)
--- NOTE | 2018-06-11 11:02 | CON.PULM ---
Consult Consult Specialty:: PULM/CCM Referred by:: REINALDO Reason for Consultation:: SOB - History of Present Illness Chief Complaint: SOB / cough History of Present Illness: 88 M, COPD due to previous smoking history, Afib, CHF, GERD, HTN, HLD, and hypothyroidism. URI type symptoms since Sunday. Was advised by family to seek medical care but refused. Worsening of congested cough, SOB, and GALLAGHER. Yesterday subjectively felt febrile with prompted his [employer]PER[employer] to bring him to the hospital. No travel history or sick contacts. No hemoptysis or night sweats. No peripheral edema or orthopnea. There is no specific history that would be consistent with [facility]. CXR: improvement from previous CXR: questionable retro-cardiac infiltrate - History Source History Provided By: Patient Limitations to Obtaining History: Language Barrier - Past Medical History Cardio/Vascular: Yes: CHF, HTN, Hyperlipdemia Pulmonary: Yes: Asthma, Bronchitis, COPD. No: Cancer, O2 Dependent, Previously Intubated, Pulmonary Embolus, Pulmonary Fibrosis, Sleep Apnea Gastrointestinal: Yes: Inflamatory Bowel Disease Endocrine: Yes: Hypothyroidism - Alcohol/Substance Use Hx Alcohol Use: No - Smoking History Smoking history: Former smoker Have you smoked in the past 12 months: No Aproximately how many cigarettes per day: 0 If you are a former smoker, when did you quit?: LONG TIME Home Medications - Allergies Allergies/Adverse Reactions: Allergies Allergy/AdvReac Type Severity Reaction Status Date / Time No Known Allergies Allergy Unverified 06/10/18 10:19 - Home Medications Home Medications: Ambulatory Orders Albuterol Sulfate Inhaler - [Ventolin Hfa Inhaler -] 1 - 2 inh PO QID 06/10/18 Amlodipine Besylate [Norvasc -] 10 mg PO DAILY 06/10/18 Aspirin 81 mg PO DAILY 06/10/18 Cetirizine HCl 10 mg PO DAILY 06/10/18 Fluticasone Prop 0.05% Nasal [Flonase -] 1 - 2 spray NS DAILY 06/10/18 Fluticasone Propion/Salmeterol [Wixela 500-50 Inhub] 1 each IH DAILY 06/10/18 Folic Acid 1 mg PO DAILY 06/10/18 Furosemide [Lasix] 40 mg PO DAILY 06/10/18 Gabapentin 300 mg PO BID 06/10/18 Ibuprofen/Famotidine [Duexis 800-26.6 mg Tablet] 1 each PO DAILY 06/10/18 Linaclotide [Linzess] 145 mcg PO DAILY 06/10/18 Montelukast Na [Singulair -] 10 mg PO HS 06/10/18 Omeprazole 40 mg PO DAILY 06/10/18 Simvastatin 20 mg PO DAILY 06/10/18 Umeclidinium [place] [Incruse Ellipta] 62.5 mcg IH DAILY 06/10/18 Review of Systems - Review of Systems Constitutional: reports: Chills, Fever, Malaise. denies: Loss of Appetite, Night Sweats, Unintentional Wgt. Loss, Weakness Eyes: reports: No Symptoms HENT: reports: No Symptoms Neck: reports: No Symptoms Cardiovascular: reports: Shortness of Breath. denies: Chest Pain, Edema, Palpitations Respiratory: reports: Cough, SOB, SOB on Exertion, Wheezing. denies: Hemoptysis , Orthopnea, Snoring Gastrointestinal: reports: No Symptoms Genitourinary: reports: No Symptoms Breasts: reports: No Symptoms Reported Musculoskeletal: reports: No Symptoms Integumentary: reports: No Symptoms Neurological: reports: No Symptoms Endocrine: reports: No Symptoms Hematology/Lymphatic: reports: No Symptoms Psychiatric: reports: No Symptoms Physical Exam Vital Sings: Vital Signs Temperature 98.6 F 06/11/18 08:19 Pulse Rate 73 06/11/18 08:19 Respiratory Rate 20 06/11/18 08:19 Blood Pressure 124/64 06/11/18 08:19 O2 Sat by Pulse Oximetry (%) 90 L 06/10/18 20:53 Constitutional: Yes: Well Nourished, No Distress, Calm Eyes: Yes: WNL, Conjunctiva Clear, EOM Intact HENT: Yes: Atraumatic, Normocephalic Neck: Yes: Supple, Trachea Midline Cardiovascular: Yes: Regular Rate and Rhythm Respiratory: Yes: Cough, Diminished, On Nasal O2, Rhonchi, SOB, SOB on Exertion , Tachypnea, Wheezes. No: Accessory Muscle Use, Rales, Stridor ...Inspection: Yes: WNL ...Clubbing: No Gastrointestinal: Yes: Normal Bowel Sounds, Soft Renal/: Yes: WNL Musculoskeletal: Yes: WNL Extremities: Yes: WNL Edema: No Peripheral Pulses WNL: Yes Integumentary: Yes: WNL Neurological: Yes: WNL, Alert, Oriented ...Motor Strength: WNL Psychiatric: Yes: WNL, Alert, Oriented Labs: CBC, BMP 06/10/18 11:00 06/10/18 11:00 Imaging - Results Chest X-ray: Report Reviewed, Image Reviewed Problem List - Problems (1) History of permanent cardiac pacemaker placement Code(s): Z95.0 - PRESENCE OF CARDIAC PACEMAKER (2) Pneumonia Code(s): J18.9 - PNEUMONIA, UNSPECIFIED ORGANISM Qualifiers: (3) CHF (congestive heart failure) Code(s): I50.9 - HEART FAILURE, UNSPECIFIED (4) COPD exacerbation Code(s): J44.1 - CHRONIC OBSTRUCTIVE PULMONARY DISEASE W (ACUTE) EXACERBATION (5) HTN (hypertension) Code(s): I10 - ESSENTIAL (PRIMARY) HYPERTENSION (6) Hyponatremia Code(s): E87.1 - HYPO-OSMOLALITY AND HYPONATREMIA Assessment/Plan Short course of Medrol BD TX Check Sputum Check Urine antigen Levaquin daily O2 as needed VTE prophylaxis No smoking PFTs after D/C and stable Will follow Thank you. Dr Santana
[2018-06-11] MEDS ORDERED: ALBUTEROL SO4 0.083% IH SOL 2.5 MG/3 ML VIAL.NEB. NEB PRN (11:05)
[2018-06-11] MEDS: methylPREDNISolone NA SUCC 40 MG/1 ML VIAL IVPUSH SCH ×2 (11:36→18:01)
--- NOTE | 2018-06-11 12:53 | CON.ID ---
Consult Consult Specialty:: infectious diseases Referred by:: - Past Medical History Cardio/Vascular: Yes: CHF, HTN, Hyperlipdemia Pulmonary: Yes: Asthma, Bronchitis, COPD. No: Cancer, O2 Dependent, Previously Intubated, Pulmonary Embolus, Pulmonary Fibrosis, Sleep Apnea Gastrointestinal: Yes: Inflamatory Bowel Disease Endocrine: Yes: Hypothyroidism - Alcohol/Substance Use Hx Alcohol Use: No - Smoking History Smoking history: Former smoker Have you smoked in the past 12 months: No Aproximately how many cigarettes per day: 0 If you are a former smoker, when did you quit?: LONG TIME Home Medications - Allergies Allergies/Adverse Reactions: Allergies Allergy/AdvReac Type Severity Reaction Status Date / Time No Known Allergies Allergy Unverified 06/10/18 10:19 - Home Medications Home Medications: Ambulatory Orders Albuterol Sulfate Inhaler - [Ventolin Hfa Inhaler -] 1 - 2 inh PO QID 06/10/18 Amlodipine Besylate [Norvasc -] 10 mg PO DAILY 06/10/18 Aspirin 81 mg PO DAILY 06/10/18 Cetirizine HCl 10 mg PO DAILY 06/10/18 Fluticasone Prop 0.05% Nasal [Flonase -] 1 - 2 spray NS DAILY 06/10/18 Fluticasone Propion/Salmeterol [Wixela 500-50 Inhub] 1 each IH DAILY 06/10/18 Folic Acid 1 mg PO DAILY 06/10/18 Furosemide [Lasix] 40 mg PO DAILY 06/10/18 Gabapentin 300 mg PO BID 06/10/18 Ibuprofen/Famotidine [Duexis 800-26.6 mg Tablet] 1 each PO DAILY 06/10/18 Linaclotide [Linzess] 145 mcg PO DAILY 06/10/18 Montelukast Na [Singulair -] 10 mg PO HS 06/10/18 Omeprazole 40 mg PO DAILY 06/10/18 Simvastatin 20 mg PO DAILY 06/10/18 Umeclidinium [place] [Incruse Ellipta] 62.5 mcg IH DAILY 06/10/18 Physical Exam Vital Signs: Vital Signs Temperature 98.6 F 06/11/18 08:19 Pulse Rate 73 06/11/18 08:19 Respiratory Rate 20 06/11/18 09:00 Blood Pressure 124/64 06/11/18 08:19 O2 Sat by Pulse Oximetry (%) 96 06/11/18 09:00 Labs: CBC, BMP 06/10/18 11:00 06/10/18 11:00
[2018-06-11] MEDS: ALBUTEROL SO4 2.5/IPRATROPIUM 0.5 INH SOL 3 ML VIAL.NEB. NEB SCH ×2 (14:30→20:20)
--- NOTE | 2018-06-11 18:37 | PN ---
Progress Note, Physician History of Present Illness: stable - Current Medication List Current Medications: Active Medications Acetaminophen (Tylenol -) 650 mg PO Q8H PRN PRN Reason: FEVER Last Admin: 06/11/18 01:35 Dose: 650 mg Albuterol Sulfate (Ventolin 0.083% Nebulizer Soln -) 1 amp NEB Q4H PRN PRN Reason: SHORT OF BREATH/WHEEZING Albuterol/Ipratropium (Duoneb -) 1 amp NEB RTID [facility] Last Admin: 06/11/18 14:30 Dose: 1 amp Amlodipine Besylate (Norvasc -) 10 mg PO DAILY [facility] Last Admin: 06/11/18 09:25 Dose: 10 mg Aspirin (Asa -) 81 mg PO DAILY [facility] Last Admin: 06/11/18 09:26 Dose: 81 mg Atorvastatin Calcium (Lipitor -) 10 mg PO HS [facility] Last Admin: 06/10/18 21:39 Dose: 10 mg Folic Acid (Folic Acid -) 1 mg PO DAILY [facility] Last Admin: 06/11/18 09:26 Dose: 1 mg Furosemide (Lasix -) 40 mg PO DAILY [facility] Last Admin: 06/11/18 09:26 Dose: 40 mg Heparin Sodium (Porcine) (Heparin -) 5,000 unit SQ BID [facility] Last Admin: 06/11/18 09:33 Dose: 5,000 unit Levofloxacin (Levaquin 500 Mg Premixed Ivpb -) 500 mg in 100 mls @ 100 mls/hr IVPB DAILY [facility]; Protocol Methylprednisolone Sodium Succinate (Solu-Medrol -) 40 mg IVPUSH Q8H-IV ANA M Last Admin: 06/11/18 18:01 Dose: 40 mg Montelukast Sodium (Singulair -) 10 mg PO HS [facility] Last Admin: 06/10/18 21:39 Dose: 10 mg Non-Formulary Medication (Linaclotide [Linzess]) 145 mcg PO DAILY ANA M Pantoprazole Sodium (Protonix -) 40 mg PO DAILY [facility] Last Admin: 06/11/18 09:26 Dose: 40 mg - Objective Vital Signs: Vital Signs Temperature 98.6 F 06/11/18 13:32 Pulse Rate 93 H 06/11/18 13:32 Respiratory Rate 20 06/11/18 13:32 Blood Pressure 122/58 L 06/11/18 13:32 O2 Sat by Pulse Oximetry (%) 96 06/11/18 09:00 Constitutional: Yes: No Distress HENT: Yes: Atraumatic Neck: Yes: Supple Cardiovascular: Yes: Regular Rate and Rhythm Respiratory: Yes: Rhonchi Gastrointestinal: Yes: Normal Bowel Sounds Extremities: Yes: WNL Edema: No Peripheral Pulses WNL: Yes Neurological: Yes: Alert, Oriented Labs: CBC, BMP 06/10/18 11:00 06/10/18 11:00 Problem List - Problems (1) Pneumonia Assessment/Plan: iv abx id and pulmonary Code(s): J18.9 - PNEUMONIA, UNSPECIFIED ORGANISM Qualifiers: (2) CHF (congestive heart failure) Assessment/Plan: stable on lasix Code(s): I50.9 - HEART FAILURE, UNSPECIFIED (3) COPD exacerbation Assessment/Plan: on meds Code(s): J44.1 - CHRONIC OBSTRUCTIVE PULMONARY DISEASE W (ACUTE) EXACERBATION (4) HTN (hypertension) Assessment/Plan: on meds Code(s): I10 - ESSENTIAL (PRIMARY) HYPERTENSION
[2018-06-11] MEDS: MONTELUKAST NA 10 MG TABLET PO SCH (21:04)
[2018-06-11] MEDS: ATORVASTATIN CA 10 MG TABLET (FP) PO SCH (21:04)
[2018-06-12] MEDS: methylPREDNISolone NA SUCC 40 MG/1 ML VIAL IVPUSH SCH ×4 (02:32→22:04)
[2018-06-12] MEDS: ALBUTEROL SO4 2.5/IPRATROPIUM 0.5 INH SOL 3 ML VIAL.NEB. NEB SCH ×3 (07:35→20:53)
--- NOTE | 2018-06-12 08:23 | PN ---
Progress Note, Physician History of Present Illness: feels better no new issues - Current Medication List Current Medications: Active Medications Acetaminophen (Tylenol -) 650 mg PO Q8H PRN PRN Reason: FEVER Last Admin: 06/11/18 01:35 Dose: 650 mg Albuterol Sulfate (Ventolin 0.083% Nebulizer Soln -) 1 amp NEB Q4H PRN PRN Reason: SHORT OF BREATH/WHEEZING Albuterol/Ipratropium (Duoneb -) 1 amp NEB RTID ANA M Last Admin: 06/11/18 20:20 Dose: 1 amp Amlodipine Besylate (Norvasc -) 10 mg PO DAILY ANA M Last Admin: 06/11/18 09:25 Dose: 10 mg Aspirin (Asa -) 81 mg PO DAILY ANA M Last Admin: 06/11/18 09:26 Dose: 81 mg Atorvastatin Calcium (Lipitor -) 10 mg PO HS ANA M Last Admin: 06/11/18 21:04 Dose: 10 mg Folic Acid (Folic Acid -) 1 mg PO DAILY ANA M Last Admin: 06/11/18 09:26 Dose: 1 mg Furosemide (Lasix -) 40 mg PO DAILY ANA M Last Admin: 06/11/18 09:26 Dose: 40 mg Heparin Sodium (Porcine) (Heparin -) 5,000 unit SQ BID ANA M Last Admin: 06/11/18 21:04 Dose: 5,000 unit Levofloxacin (Levaquin 500 Mg Premixed Ivpb -) 500 mg in 100 mls @ 100 mls/hr IVPB DAILY ANA M; Protocol Ceftriaxone Sodium 1 gm/ (Dextrose) 100 mls @ 200 mls/hr IVPB DAILY ANA M; Protocol Methylprednisolone Sodium Succinate (Solu-Medrol -) 40 mg IVPUSH Q8H-IV ANA M Last Admin: 06/12/18 02:32 Dose: 40 mg Montelukast Sodium (Singulair -) 10 mg PO HS ANA M Last Admin: 06/11/18 21:04 Dose: 10 mg Non-Formulary Medication (Linaclotide [Linzess]) 145 mcg PO DAILY ANA M Pantoprazole Sodium (Protonix -) 40 mg PO DAILY ANA M Last Admin: 06/11/18 09:26 Dose: 40 mg - Objective Vital Signs: Vital Signs Temperature 97.2 F L 06/12/18 08:07 Pulse Rate 80 06/12/18 08:07 Respiratory Rate 20 06/12/18 08:07 Blood Pressure 132/60 06/12/18 08:07 O2 Sat by Pulse Oximetry (%) 94 L 06/11/18 20:33 Constitutional: Yes: No Distress, Calm Neck: Yes: Supple Cardiovascular: Yes: Regular Rate and Rhythm Respiratory: Yes: Regular, Poor Air Entry (bases) Gastrointestinal: Yes: Normal Bowel Sounds, Soft Musculoskeletal: Yes: WNL Extremities: Yes: WNL Neurological: Yes: Alert, Oriented Psychiatric: Yes: Alert, Oriented Labs: CBC, BMP 06/10/18 11:00 06/10/18 11:00 Assessment/Plan Problem List - Problems (1) History of permanent cardiac pacemaker placement Code(s): Z95.0 - PRESENCE OF CARDIAC PACEMAKER (2) Pneumonia Code(s): J18.9 - PNEUMONIA, UNSPECIFIED ORGANISM Qualifiers: (3) CHF (congestive heart failure) Code(s): I50.9 - HEART FAILURE, UNSPECIFIED (4) COPD exacerbation Code(s): J44.1 - CHRONIC OBSTRUCTIVE PULMONARY DISEASE W (ACUTE) EXACERBATION (5) HTN (hypertension) Code(s): I10 - ESSENTIAL (PRIMARY) HYPERTENSION (6) Hyponatremia Code(s): E87.1 - HYPO-OSMOLALITY AND HYPONATREMIA plan continue ceftriaxone await for sputum results all other results noted stable
[2018-06-12] MEDS: FUROSEMIDE 40 MG TABLET (FP) PO SCH (09:04)
[2018-06-12] MEDS: PANTOPRAZOLE 40 MG TABLET (FP) PO SCH (09:04)
[2018-06-12] MEDS: ASPIRIN 81 MG CHEWABLE TABLETS PO SCH (09:04)
[2018-06-12] MEDS: amLODIPine BESYLATE 10 MG TABLET (FP) PO SCH (09:04)
[2018-06-12] MEDS: HEPARIN NA (PORCINE) 5,000 UNITS/ML 1ML VIAL SQ SCH ×2 (09:04→22:04)
[2018-06-12] MEDS: FOLIC ACID 1 MG TABLET (FP) PO SCH (09:04)
[2018-06-12 09:47] LABS: HEMOGLOBIN 13.4 GM/dL (11.7-16.9); LYMPH % 3.6 % (8-40); MCH 29.4 pg (25.7-33.7); MCHC 33.4 g/dl (32.0-35.9); MEAN CELL VOLUME 87.9 fl (80-96); MEAN PLT VOLUME 7.4 fl (7.5-11.1); MONO % 2.6 % (3.8-10.2); NEUT % 93.8 % (42.8-82.8); PLATELET COUNT 256 K/MM3 (134-434); RBC 4.55 M/mm3 (4.00-5.60); RDW 14.6 % (11.9-15.9); WHITE BLOOD COUNT 11.2 K/mm3 (4.0-10.0)
[2018-06-12] MEDS ORDERED: DEXTROSE 5%-WATER - 50 ML IVPB ONE (11:30)
[2018-06-12] MEDS ORDERED: cefTRIAXone SODIUM 1 GM VIAL ONE (11:30)
[2018-06-12] MEDS: CEFTRIAXONE 1 GM in DEXTROSE 5%-WATER - 50 ML IVPB SCH (11:32)
--- NOTE | 2018-06-12 12:34 | PN ---
Progress Note (short form) - Note Progress Note: PULMONARY Feels better. Breathing improving. Coughing less. No fevers or chills. Vital Signs Period Temp Pulse Resp BP Sys/[place] Pulse Ox Last 24 Hr 97.2 F-98.6 F 76-93 20-20 120-132/58-69 94-96 Gen: NAD in chair Heart: RRR Lung: decreased breath sounds at the bases Abd: soft, nontender Ext: no edema CBC, BMP 06/12/18 09:04 06/10/18 11:00 Active Medications Acetaminophen (Tylenol -) 650 mg PO Q8H PRN PRN Reason: FEVER Last Admin: 06/11/18 01:35 Dose: 650 mg Albuterol Sulfate (Ventolin 0.083% Nebulizer Soln -) 1 amp NEB Q4H PRN PRN Reason: SHORT OF BREATH/WHEEZING Albuterol/Ipratropium (Duoneb -) 1 amp NEB RTID ANA M Last Admin: 06/11/18 20:20 Dose: 1 amp Amlodipine Besylate (Norvasc -) 10 mg PO DAILY [facility] Last Admin: 06/12/18 09:04 Dose: 10 mg Aspirin (Asa -) 81 mg PO DAILY ANA M Last Admin: 06/12/18 09:04 Dose: 81 mg Atorvastatin Calcium (Lipitor -) 10 mg PO HS [facility] Last Admin: 06/11/18 21:04 Dose: 10 mg Folic Acid (Folic Acid -) 1 mg PO DAILY ANA M Last Admin: 06/12/18 09:04 Dose: 1 mg Furosemide (Lasix -) 40 mg PO DAILY ANA M Last Admin: 06/12/18 09:04 Dose: 40 mg Heparin Sodium (Porcine) (Heparin -) 5,000 unit SQ BID ANA M Last Admin: 06/12/18 09:04 Dose: 5,000 unit Ceftriaxone Sodium 1 gm/ (Dextrose) 50 mls @ 200 mls/hr IVPB DAILY ANA M; Protocol Last Admin: 06/12/18 11:32 Dose: 200 mls/hr Methylprednisolone Sodium Succinate (Solu-Medrol -) 40 mg IVPUSH Q8H-IV ANA M Last Admin: 06/12/18 11:32 Dose: 40 mg Montelukast Sodium (Singulair -) 10 mg PO HS [facility] Last Admin: 06/11/18 21:04 Dose: 10 mg Non-Formulary Medication (Linaclotide [Linzess]) 145 mcg PO DAILY [facility] Pantoprazole Sodium (Protonix -) 40 mg PO DAILY [facility] Last Admin: 06/12/18 09:04 Dose: 40 mg A/P Pneumonia Acute COPD Exacerbation Atrial Fibrillation CHF HTN Hyperlipidemia - continue antibiotics - f/u cultures - can likely d/c steroids in AM - inhaled bronchodilators - O2 to keep Spo2 >90% - DVT prophylaxis - outpt f/u of chest imaging as outpt to ensure resolution
[2018-06-12 12:56] LABS: ANISOCYTOSIS 0; HELMET CELLS 0; HOWELL-JOLLY BODIES 0; MACROCYTOSIS 0; OVALOCYTE 0; PLATELET ESTIMATE NORMAL; ROULEAU 0; SICKELED CELLS 0; TARGET CELLS 0; TEAR DROP CELLS 0; TOXIC GRANULATION 0
--- NOTE | 2018-06-12 18:33 | PN ---
Progress Note, Physician History of Present Illness: stable - Current Medication List Current Medications: Active Medications Acetaminophen (Tylenol -) 650 mg PO Q8H PRN PRN Reason: FEVER Last Admin: 06/11/18 01:35 Dose: 650 mg Albuterol Sulfate (Ventolin 0.083% Nebulizer Soln -) 1 amp NEB Q4H PRN PRN Reason: SHORT OF BREATH/WHEEZING Albuterol/Ipratropium (Duoneb -) 1 amp NEB RTID ANA M Last Admin: 06/12/18 14:10 Dose: 1 amp Amlodipine Besylate (Norvasc -) 10 mg PO DAILY [facility] Last Admin: 06/12/18 09:04 Dose: 10 mg Aspirin (Asa -) 81 mg PO DAILY [facility] Last Admin: 06/12/18 09:04 Dose: 81 mg Atorvastatin Calcium (Lipitor -) 10 mg PO HS [facility] Last Admin: 06/11/18 21:04 Dose: 10 mg Docusate Sodium (Colace -) 100 mg PO DAILY ANA M Folic Acid (Folic Acid -) 1 mg PO DAILY [facility] Last Admin: 06/12/18 09:04 Dose: 1 mg Furosemide (Lasix -) 40 mg PO DAILY [facility] Last Admin: 06/12/18 09:04 Dose: 40 mg Heparin Sodium (Porcine) (Heparin -) 5,000 unit SQ BID [facility] Last Admin: 06/12/18 09:04 Dose: 5,000 unit Ceftriaxone Sodium 1 gm/ (Dextrose) 50 mls @ 200 mls/hr IVPB DAILY [facility]; Protocol Last Admin: 06/12/18 11:32 Dose: 200 mls/hr Methylprednisolone Sodium Succinate (Solu-Medrol -) 40 mg IVPUSH Q8H-IV ANA M Last Admin: 06/12/18 16:59 Dose: 40 mg Montelukast Sodium (Singulair -) 10 mg PO HS [facility] Last Admin: 06/11/18 21:04 Dose: 10 mg Non-Formulary Medication (Linaclotide [Linzess]) 145 mcg PO DAILY ANA M Pantoprazole Sodium (Protonix -) 40 mg PO DAILY [facility] Last Admin: 06/12/18 09:04 Dose: 40 mg - Objective Vital Signs: Vital Signs Temperature 98.0 F 06/12/18 17:14 Pulse Rate 86 06/12/18 17:14 Respiratory Rate 20 06/12/18 17:14 Blood Pressure 133/54 L 06/12/18 17:14 O2 Sat by Pulse Oximetry (%) 96 06/12/18 09:00 Constitutional: Yes: No Distress HENT: Yes: Atraumatic Neck: Yes: Supple Cardiovascular: Yes: Regular Rate and Rhythm Respiratory: Yes: Rhonchi Gastrointestinal: Yes: Normal Bowel Sounds Extremities: Yes: WNL Edema: No Neurological: Yes: Alert, Oriented Labs: CBC, BMP 06/12/18 09:04 06/10/18 11:00 Problem List - Problems (1) Pneumonia Assessment/Plan: iv abx id and pulmonary Code(s): J18.9 - PNEUMONIA, UNSPECIFIED ORGANISM Qualifiers: (2) CHF (congestive heart failure) Assessment/Plan: stable on lasix Code(s): I50.9 - HEART FAILURE, UNSPECIFIED (3) COPD exacerbation Code(s): J44.1 - CHRONIC OBSTRUCTIVE PULMONARY DISEASE W (ACUTE) EXACERBATION (4) HTN (hypertension) Code(s): I10 - ESSENTIAL (PRIMARY) HYPERTENSION
[2018-06-12] MEDS: DOCUSATE SODIUM 100 MG CAPSULE (FP) PO SCH (18:38)
[2018-06-12] MEDS: MONTELUKAST NA 10 MG TABLET PO SCH (22:04)
[2018-06-12] MEDS: ATORVASTATIN CA 10 MG TABLET (FP) PO SCH (22:04)
[2018-06-13] MEDS: ALBUTEROL SO4 2.5/IPRATROPIUM 0.5 INH SOL 3 ML VIAL.NEB. NEB SCH ×3 (08:30→20:26)
[2018-06-13] MEDS ORDERED: cefTRIAXone SODIUM 1 GM VIAL ONE (09:06)
[2018-06-13] MEDS ORDERED: DEXTROSE 5%-WATER - 50 ML IVPB ONE (09:06)
[2018-06-13] MEDS: PATIENT'S OWN MEDICATION (NON-FORMULARY) (Linaclotide [Linzess] 145 MCG) PO SCH (09:13)
[2018-06-13] MEDS: ASPIRIN 81 MG CHEWABLE TABLETS PO SCH (09:14)
[2018-06-13] MEDS: amLODIPine BESYLATE 10 MG TABLET (FP) PO SCH (09:14)
[2018-06-13] MEDS: FUROSEMIDE 40 MG TABLET (FP) PO SCH (09:14)
[2018-06-13] MEDS: HEPARIN NA (PORCINE) 5,000 UNITS/ML 1ML VIAL SQ SCH ×2 (09:14→22:19)
[2018-06-13] MEDS: DOCUSATE SODIUM 100 MG CAPSULE (FP) PO SCH (09:14)
[2018-06-13] MEDS: PANTOPRAZOLE 40 MG TABLET (FP) PO SCH (09:14)
[2018-06-13] MEDS: FOLIC ACID 1 MG TABLET (FP) PO SCH (09:14)
[2018-06-13] MEDS: methylPREDNISolone NA SUCC 40 MG/1 ML VIAL IVPUSH SCH (09:14)
[2018-06-13] MEDS: CEFTRIAXONE 1 GM in DEXTROSE 5%-WATER - 50 ML IVPB SCH (09:15)
--- NOTE | 2018-06-13 10:21 | PN ---
Progress Note (short form) - Note Progress Note: OOB to chair. Feels overall better. Breathing improving. Coughing less. No fevers or chills. Intake & Output 06/10/18 06/11/18 06/12/18 06/13/18 23:59 23:59 23:59 23:59 Intake Total 829 279 6519 400 Balance 784 371 0229 400 Weight 146 lb 7 oz Last Vital Signs Temp Pulse Resp BP Pulse Ox 98.3 F 89 20 123/74 96 06/13/18 05:21 06/13/18 05:21 06/13/18 05:21 06/13/18 05:21 06/12/18 21:00 Active Medications Acetaminophen (Tylenol -) 650 mg PO Q8H PRN PRN Reason: FEVER Last Admin: 06/11/18 01:35 Dose: 650 mg Albuterol Sulfate (Ventolin 0.083% Nebulizer Soln -) 1 amp NEB Q4H PRN PRN Reason: SHORT OF BREATH/WHEEZING Albuterol/Ipratropium (Duoneb -) 1 amp NEB RTID [facility] Last Admin: 06/13/18 08:30 Dose: 1 amp Amlodipine Besylate (Norvasc -) 10 mg PO DAILY [facility] Last Admin: 06/13/18 09:14 Dose: 10 mg Aspirin (Asa -) 81 mg PO DAILY [facility] Last Admin: 06/13/18 09:14 Dose: 81 mg Atorvastatin Calcium (Lipitor -) 10 mg PO HS [facility] Last Admin: 06/12/18 22:04 Dose: 10 mg Docusate Sodium (Colace -) 100 mg PO DAILY [facility] Last Admin: 06/13/18 09:14 Dose: 100 mg Folic Acid (Folic Acid -) 1 mg PO DAILY [facility] Last Admin: 06/13/18 09:14 Dose: 1 mg Furosemide (Lasix -) 40 mg PO DAILY [facility] Last Admin: 06/13/18 09:14 Dose: 40 mg Heparin Sodium (Porcine) (Heparin -) 5,000 unit SQ BID [facility] Last Admin: 06/13/18 09:14 Dose: 5,000 unit Ceftriaxone Sodium 1 gm/ (Dextrose) 50 mls @ 200 mls/hr IVPB DAILY [facility]; Protocol Last Admin: 06/13/18 09:15 Dose: 200 mls/hr Methylprednisolone Sodium Succinate (Solu-Medrol -) 40 mg IVPUSH BID [facility] Last Admin: 06/13/18 09:14 Dose: 40 mg Montelukast Sodium (Singulair -) 10 mg PO HS [facility] Last Admin: 06/12/18 22:04 Dose: 10 mg Non-Formulary Medication (Linaclotide [Linzess]) 145 mcg PO DAILY [facility] Last Admin: 06/13/18 09:13 Dose: 145 mcg Pantoprazole Sodium (Protonix -) 40 mg PO DAILY [facility] Last Admin: 06/13/18 09:14 Dose: 40 mg Gen: NAD in chair Heart: RRR Lung: decreased breath sounds at the bases Abd: soft, nontender Ext: no edema Laboratory Results - last 24 hr 06/12/18 09:04 Neutrophils % (Manual) 97.0 H Band Neutrophils % 3.0 Lymphocytes % (Manual) 0.0 L Monocytes % (Manual) 0 L D Eosinophils % (Manual) 0.0 D Basophils % (Manual) 0.0 Myelocytes % (Man) 0 D Promyelocytes % (Man) 0 Blast Cells % (Manual) 0 Metamyelocytes 0 D Hypochromia 0 Toxic Granulation 0 Dohle Bodies 0 Platelet Estimate Normal Platelet Comment Present Polychromasia 0 Poikilocytosis 0 Basophilic Stippling 0 Anisocytosis 0 Microcytosis 0 Macrocytosis 0 Spherocytes 0 Sickle Cells 0 Target Cells 0 Tear Drop Cells 0 Ovalocytes 0 Stomatocytes 0 Helmet Cells 0 [place] Bodies 0 [place] Rings 0 [place] Cells 0 Acanthocytes (Spur) 0 Rouleaux 0 Fragmented RBCs 0 Schistocytes 0 A/P Pneumonia Acute COPD Exacerbation Atrial Fibrillation CHF HTN Hyperlipidemia - ABX per ID - Will change to Prednsione - Inhaled bronchodilators - O2 to keep Spo2 >90% - DVT prophylaxis - outpatient followup of Chest imaging to ensure resolution Dr Satnana Problem List - Problems (1) History of permanent cardiac pacemaker placement Code(s): Z95.0 - PRESENCE OF CARDIAC PACEMAKER (2) Pneumonia Code(s): J18.9 - PNEUMONIA, UNSPECIFIED ORGANISM Qualifiers: (3) CHF (congestive heart failure) Code(s): I50.9 - HEART FAILURE, UNSPECIFIED (4) COPD exacerbation Code(s): J44.1 - CHRONIC OBSTRUCTIVE PULMONARY DISEASE W (ACUTE) EXACERBATION (5) HTN (hypertension) Code(s): I10 - ESSENTIAL (PRIMARY) HYPERTENSION (6) Hyponatremia Code(s): E87.1 - HYPO-OSMOLALITY AND HYPONATREMIA
--- NOTE | 2018-06-13 10:27 | PN ---
Progress Note, Physician History of Present Illness: in chair doing well coughing less - Current Medication List Current Medications: Active Medications Acetaminophen (Tylenol -) 650 mg PO Q8H PRN PRN Reason: FEVER Last Admin: 06/11/18 01:35 Dose: 650 mg Albuterol Sulfate (Ventolin 0.083% Nebulizer Soln -) 1 amp NEB Q4H PRN PRN Reason: SHORT OF BREATH/WHEEZING Albuterol/Ipratropium (Duoneb -) 1 amp NEB RTID [facility] Last Admin: 06/13/18 08:30 Dose: 1 amp Amlodipine Besylate (Norvasc -) 10 mg PO DAILY [facility] Last Admin: 06/13/18 09:14 Dose: 10 mg Aspirin (Asa -) 81 mg PO DAILY [facility] Last Admin: 06/13/18 09:14 Dose: 81 mg Atorvastatin Calcium (Lipitor -) 10 mg PO HS [facility] Last Admin: 06/12/18 22:04 Dose: 10 mg Docusate Sodium (Colace -) 100 mg PO DAILY [facility] Last Admin: 06/13/18 09:14 Dose: 100 mg Folic Acid (Folic Acid -) 1 mg PO DAILY [facility] Last Admin: 06/13/18 09:14 Dose: 1 mg Furosemide (Lasix -) 40 mg PO DAILY [facility] Last Admin: 06/13/18 09:14 Dose: 40 mg Heparin Sodium (Porcine) (Heparin -) 5,000 unit SQ BID [facility] Last Admin: 06/13/18 09:14 Dose: 5,000 unit Ceftriaxone Sodium 1 gm/ (Dextrose) 50 mls @ 200 mls/hr IVPB DAILY [facility]; Protocol Last Admin: 06/13/18 09:15 Dose: 200 mls/hr Methylprednisolone Sodium Succinate (Solu-Medrol -) 40 mg IVPUSH BID [facility] Last Admin: 06/13/18 09:14 Dose: 40 mg Montelukast Sodium (Singulair -) 10 mg PO HS [facility] Last Admin: 06/12/18 22:04 Dose: 10 mg Non-Formulary Medication (Linaclotide [Linzess]) 145 mcg PO DAILY [facility] Last Admin: 06/13/18 09:13 Dose: 145 mcg Pantoprazole Sodium (Protonix -) 40 mg PO DAILY [facility] Last Admin: 06/13/18 09:14 Dose: 40 mg - Objective Vital Signs: Vital Signs Temperature 98.3 F 06/13/18 05:21 Pulse Rate 89 06/13/18 05:21 Respiratory Rate 20 06/13/18 05:21 Blood Pressure 123/74 06/13/18 05:21 O2 Sat by Pulse Oximetry (%) 96 06/12/18 21:00 Constitutional: Yes: No Distress, Calm Cardiovascular: Yes: Regular Rate and Rhythm Respiratory: Yes: Regular, CTA Bilaterally Gastrointestinal: Yes: Normal Bowel Sounds, Soft Musculoskeletal: Yes: WNL Extremities: Yes: WNL Neurological: Yes: Alert, Oriented Psychiatric: Yes: Alert, Oriented Labs: CBC, BMP 06/12/18 09:04 06/10/18 11:00 Assessment/Plan Problem List - Problems (1) History of permanent cardiac pacemaker placement Code(s): Z95.0 - PRESENCE OF CARDIAC PACEMAKER (2) Pneumonia Code(s): J18.9 - PNEUMONIA, UNSPECIFIED ORGANISM Qualifiers: (3) CHF (congestive heart failure) Code(s): I50.9 - HEART FAILURE, UNSPECIFIED (4) COPD exacerbation Code(s): J44.1 - CHRONIC OBSTRUCTIVE PULMONARY DISEASE W (ACUTE) EXACERBATION (5) HTN (hypertension) Code(s): I10 - ESSENTIAL (PRIMARY) HYPERTENSION (6) Hyponatremia Code(s): E87.1 - HYPO-OSMOLALITY AND HYPONATREMIA plan continue ceftriaxone await for sputum results patient can be changed to augmentin can give for couple of days
--- NOTE | 2018-06-13 18:07 | PN ---
Progress Note, Physician - Current Medication List Current Medications: Active Medications Acetaminophen (Tylenol -) 650 mg PO Q8H PRN PRN Reason: FEVER Last Admin: 06/11/18 01:35 Dose: 650 mg Albuterol Sulfate (Ventolin 0.083% Nebulizer Soln -) 1 amp NEB Q4H PRN PRN Reason: SHORT OF BREATH/WHEEZING Albuterol/Ipratropium (Duoneb -) 1 amp NEB RTID [facility] Last Admin: 06/13/18 13:58 Dose: 1 amp Amlodipine Besylate (Norvasc -) 10 mg PO DAILY [facility] Last Admin: 06/13/18 09:14 Dose: 10 mg Aspirin (Asa -) 81 mg PO DAILY [facility] Last Admin: 06/13/18 09:14 Dose: 81 mg Atorvastatin Calcium (Lipitor -) 10 mg PO HS [facility] Last Admin: 06/12/18 22:04 Dose: 10 mg Docusate Sodium (Colace -) 100 mg PO DAILY [facility] Last Admin: 06/13/18 09:14 Dose: 100 mg Folic Acid (Folic Acid -) 1 mg PO DAILY [facility] Last Admin: 06/13/18 09:14 Dose: 1 mg Furosemide (Lasix -) 40 mg PO DAILY [facility] Last Admin: 06/13/18 09:14 Dose: 40 mg Heparin Sodium (Porcine) (Heparin -) 5,000 unit SQ BID [facility] Last Admin: 06/13/18 09:14 Dose: 5,000 unit Ceftriaxone Sodium 1 gm/ (Dextrose) 50 mls @ 200 mls/hr IVPB DAILY [facility]; Protocol Last Admin: 06/13/18 09:15 Dose: 200 mls/hr Methylprednisolone Sodium Succinate (Solu-Medrol -) 40 mg IVPUSH BID [facility] Last Admin: 06/13/18 09:14 Dose: 40 mg Montelukast Sodium (Singulair -) 10 mg PO HS [facility] Last Admin: 06/12/18 22:04 Dose: 10 mg Non-Formulary Medication (Linaclotide [Linzess]) 145 mcg PO DAILY [facility] Last Admin: 06/13/18 09:13 Dose: 145 mcg Pantoprazole Sodium (Protonix -) 40 mg PO DAILY [facility] Last Admin: 06/13/18 09:14 Dose: 40 mg - Objective Vital Signs: Vital Signs Temperature 97.8 F 06/13/18 17:08 Pulse Rate 86 06/13/18 17:08 Respiratory Rate 20 06/13/18 17:08 Blood Pressure 118/62 06/13/18 17:08 O2 Sat by Pulse Oximetry (%) 97 06/13/18 09:00 Constitutional: Yes: No Distress HENT: Yes: Atraumatic Neck: Yes: Supple Cardiovascular: Yes: Regular Rate and Rhythm Respiratory: Yes: CTA Bilaterally Gastrointestinal: Yes: Normal Bowel Sounds Extremities: Yes: WNL Edema: No Peripheral Pulses WNL: Yes Neurological: Yes: Alert, Oriented Labs: CBC, BMP 06/12/18 09:04 06/10/18 11:00 Problem List - Problems (1) Pneumonia Assessment/Plan: iv abx id and pulmonary Code(s): J18.9 - PNEUMONIA, UNSPECIFIED ORGANISM Qualifiers: (2) CHF (congestive heart failure) Assessment/Plan: stable on lasix Code(s): I50.9 - HEART FAILURE, UNSPECIFIED (3) COPD exacerbation Code(s): J44.1 - CHRONIC OBSTRUCTIVE PULMONARY DISEASE W (ACUTE) EXACERBATION (4) HTN (hypertension) Code(s): I10 - ESSENTIAL (PRIMARY) HYPERTENSION
[2018-06-13] MEDS ORDERED: PT OWN MED DRAWER 7, Y5N ONE (18:15)
[2018-06-13 19:18] LABS: BASO % 0.1 % (0-2.0); HEMATOCRIT 41.2 % (35.4-49); HEMOGLOBIN 13.6 GM/dL (11.7-16.9); LYMPH % 2.3 % (8-40); MCH 29.2 pg (25.7-33.7); MCHC 33.1 g/dl (32.0-35.9); MEAN CELL VOLUME 88.3 fl (80-96); MEAN PLT VOLUME 7.4 fl (7.5-11.1); MONO % 4.3 % (3.8-10.2); NEUT % 93.3 % (42.8-82.8); PLATELET COUNT 309 K/MM3 (134-434); RBC 4.67 M/mm3 (4.00-5.60); WHITE BLOOD COUNT 14.6 K/mm3 (4.0-10.0)
[2018-06-13] MEDS ORDERED: predniSONE 20 MG TABLET (UD) PO SCH (19:25)
[2018-06-13 19:50] LABS: ALBUMIN 3.5 g/dl (3.4-5.0); ALK PHOS 103 U/L (45-117); ANION GAP 10 MMOL/L (8-16); BILIRUBIN,TOTAL 0.2 mg/dL (0.2-1); BLOOD UREA NITROGEN 30 mg/dL (7-18); CALCIUM 9.4 mg/dL (8.5-10.1); CHLORIDE 95 mmol/L (98-107); CO2 29 mmol/L (21-32); CREATININE 1.2 mg/dL (0.55-1.3); GLUCOSE,RANDOM 173 mg/dL (74-106); POTASSIUM 4.4 mmol/L (3.5-5.1); SGOT/AST 41 U/L (15-37); SGPT/ALT 39 U/L (13-61); SODIUM 134 mmol/L (136-145); TOT PROT 7.4 g/dl (6.4-8.2)
[2018-06-13 20:03] LABS: PLATELET ESTIMATE ADEQUATE
[2018-06-13] MEDS: MONTELUKAST NA 10 MG TABLET PO SCH (22:19)
[2018-06-13] MEDS: ATORVASTATIN CA 10 MG TABLET (FP) PO SCH (22:19)
[2018-06-14] MEDS: ALBUTEROL SO4 2.5/IPRATROPIUM 0.5 INH SOL 3 ML VIAL.NEB. NEB SCH ×2 (08:12→13:30)
[2018-06-14] MEDS ORDERED: cefTRIAXone SODIUM 1 GM VIAL ONE (09:21)
[2018-06-14] MEDS ORDERED: DEXTROSE 5%-WATER - 50 ML IVPB ONE (09:21)
[2018-06-14] MEDS: CEFTRIAXONE 1 GM in DEXTROSE 5%-WATER - 50 ML IVPB SCH (09:28)
[2018-06-14] MEDS: ASPIRIN 81 MG CHEWABLE TABLETS PO SCH (09:29)
[2018-06-14] MEDS: PANTOPRAZOLE 40 MG TABLET (FP) PO SCH (09:29)
[2018-06-14] MEDS: DOCUSATE SODIUM 100 MG CAPSULE (FP) PO SCH (09:29)
[2018-06-14] MEDS: HEPARIN NA (PORCINE) 5,000 UNITS/ML 1ML VIAL SQ SCH (09:30)
[2018-06-14] MEDS: amLODIPine BESYLATE 10 MG TABLET (FP) PO SCH (09:30)
[2018-06-14] MEDS: FUROSEMIDE 40 MG TABLET (FP) PO SCH (09:30)
[2018-06-14] MEDS: PATIENT'S OWN MEDICATION (NON-FORMULARY) (Linaclotide [Linzess] 145 MCG) PO SCH (09:30)
[2018-06-14] MEDS: FOLIC ACID 1 MG TABLET (FP) PO SCH (09:30)
[2018-06-14] MEDS ORDERED: predniSONE 20 MG TABLET (UD) PO SCH (10:00)
[2018-06-14 10:36] VITALS: BP 142/60; PULSE 96; TEMP 97.7
--- NOTE | 2018-06-14 10:47 | PN ---
Progress Note, Physician - Current Medication List Current Medications: Active Medications Acetaminophen (Tylenol -) 650 mg PO Q8H PRN PRN Reason: FEVER Last Admin: 06/11/18 01:35 Dose: 650 mg Albuterol Sulfate (Ventolin 0.083% Nebulizer Soln -) 1 amp NEB Q4H PRN PRN Reason: SHORT OF BREATH/WHEEZING Albuterol/Ipratropium (Duoneb -) 1 amp NEB RTID [facility] Last Admin: 06/14/18 08:12 Dose: 1 amp Amlodipine Besylate (Norvasc -) 10 mg PO DAILY [facility] Last Admin: 06/14/18 09:30 Dose: 10 mg Aspirin (Asa -) 81 mg PO DAILY [facility] Last Admin: 06/14/18 09:29 Dose: 81 mg Atorvastatin Calcium (Lipitor -) 10 mg PO HS [facility] Last Admin: 06/13/18 22:19 Dose: 10 mg Docusate Sodium (Colace -) 100 mg PO DAILY [facility] Last Admin: 06/14/18 09:29 Dose: 100 mg Folic Acid (Folic Acid -) 1 mg PO DAILY [facility] Last Admin: 06/14/18 09:30 Dose: 1 mg Furosemide (Lasix -) 40 mg PO DAILY [facility] Last Admin: 06/14/18 09:30 Dose: 40 mg Heparin Sodium (Porcine) (Heparin -) 5,000 unit SQ BID [facility] Last Admin: 06/14/18 09:30 Dose: 5,000 unit Ceftriaxone Sodium 1 gm/ (Dextrose) 50 mls @ 200 mls/hr IVPB DAILY [facility]; Protocol Last Admin: 06/14/18 09:28 Dose: 200 mls/hr Montelukast Sodium (Singulair -) 10 mg PO HS [facility] Last Admin: 06/13/18 22:19 Dose: 10 mg Non-Formulary Medication (Linaclotide [Linzess]) 145 mcg PO DAILY [facility] Last Admin: 06/14/18 09:30 Dose: 145 mcg Pantoprazole Sodium (Protonix -) 40 mg PO DAILY [facility] Last Admin: 06/14/18 09:29 Dose: 40 mg Prednisone (Deltasone -) 40 mg PO DAILY [facility] Last Admin: 06/14/18 09:30 Dose: 40 mg - Objective Vital Signs: Vital Signs Temperature 97.7 F 06/14/18 10:00 Pulse Rate 96 H 06/14/18 10:00 Respiratory Rate 06/14/18 10:00 Blood Pressure 142/60 06/14/18 10:00 O2 Sat by Pulse Oximetry (%) 94 L 06/14/18 09:56 Labs: CBC, BMP 06/13/18 19:00 06/13/18 19:00
--- NOTE | 2018-06-14 15:34 | PN ---
Progress Note, Physician - Objective Vital Signs: Vital Signs Temperature 97.7 F 06/14/18 10:00 Pulse Rate 96 H 06/14/18 10:00 Respiratory Rate 18 06/14/18 10:00 Blood Pressure 142/60 06/14/18 10:00 O2 Sat by Pulse Oximetry (%) 94 L 06/14/18 09:56 Constitutional: Yes: No Distress HENT: Yes: Atraumatic Neck: Yes: Supple Cardiovascular: Yes: Regular Rate and Rhythm Respiratory: Yes: CTA Bilaterally Gastrointestinal: Yes: Normal Bowel Sounds Extremities: Yes: WNL Neurological: Yes: Alert, Oriented Labs: CBC, BMP 06/13/18 19:00 06/13/18 19:00 Problem List - Problems (1) Pneumonia Assessment/Plan: iv abx id and pulmonary Code(s): J18.9 - PNEUMONIA, UNSPECIFIED ORGANISM Qualifiers: (2) CHF (congestive heart failure) Assessment/Plan: stable on lasix Code(s): I50.9 - HEART FAILURE, UNSPECIFIED (3) COPD exacerbation Assessment/Plan: on meds Code(s): J44.1 - CHRONIC OBSTRUCTIVE PULMONARY DISEASE W (ACUTE) EXACERBATION (4) HTN (hypertension) Assessment/Plan: on meds Code(s): I10 - ESSENTIAL (PRIMARY) HYPERTENSION (5) DVT prophylaxis Code(s): [id number] -
--- NOTE | 2018-06-14 15:36 | DS ---
Physical Examination Vital Signs: Vital Signs Temperature 97.7 F 06/14/18 10:00 Pulse Rate 96 H 06/14/18 10:00 Respiratory Rate 18 06/14/18 10:00 Blood Pressure 142/60 06/14/18 10:00 O2 Sat by Pulse Oximetry (%) 94 L 06/14/18 09:56 Constitutional: Yes: No Distress HENT: Yes: Atraumatic Neck: Yes: Supple Cardiovascular: Yes: Regular Rate and Rhythm Respiratory: Yes: CTA Bilaterally Gastrointestinal: Yes: Normal Bowel Sounds Extremities: Yes: WNL Neurological: Yes: Alert, Oriented Labs: CBC, BMP 06/13/18 19:00 06/13/18 19:00 Discharge Summary Reason For Visit: PNEUMONIA - Instructions Diet, Activity, Other Instructions: see your doctor in 2-3 days Disposition: HOME - Home Medications Comprehensive Discharge Medication List: Ambulatory Orders Albuterol Sulfate Inhaler - [Ventolin HFA Inhaler -] 1 - 2 inh PO QID 06/10/18 Amlodipine Besylate [Norvasc -] 10 mg PO DAILY 06/10/18 Aspirin 81 mg PO DAILY 06/10/18 Cetirizine HCl 10 mg PO DAILY 06/10/18 Fluticasone Prop 0.05% Nasal [Flonase -] 1 - 2 spray NS DAILY 06/10/18 Fluticasone Propion/Salmeterol [Wixela 500-50 Inhub] 1 each IH DAILY 06/10/18 Folic Acid 1 mg PO DAILY 06/10/18 Furosemide [Lasix] 40 mg PO DAILY 06/10/18 Gabapentin 300 mg PO BID 06/10/18 Ibuprofen/Famotidine [Duexis 800-26.6 mg Tablet] 1 each PO DAILY 06/10/18 Linaclotide [Linzess] 145 mcg PO DAILY 06/10/18 Montelukast Na [Singulair -] 10 mg PO HS 06/10/18 Omeprazole 40 mg PO DAILY 06/10/18 Simvastatin 20 mg PO DAILY 06/10/18 Umeclidinium Valentine [Incruse Ellipta] 62.5 mcg IH DAILY 06/10/18 Amoxicillin/Potassium Clav [Augmentin 875-125 Tablet] 1 each PO BID #4 tablet Prednisone 10 mg PO ASDIR #30 tablet 06/13/18 [facility]
== END 2018-06-14 15:22 | disposition home or self-care (01) | DRG 194 ==
LOC: JER 10:12 → JERBED 12:44 → J7W 15:40
PROVIDERS: ADMIT Internal Medicine; ATTEND Internal Medicine
DX: J18.9 Pneumonia, unspecified organism (principal); J44.1 Chronic obstructive pulmonary disease with (acute) exacerbation; E87.1 Hypo-osmolality and hyponatremia; I48.91 Unspecified atrial fibrillation; Z95.0 Presence of cardiac pacemaker; I11.0 Hypertensive heart disease with heart failure; I50.9 Heart failure, unspecified; E78.5 Hyperlipidemia, unspecified; E03.9 Hypothyroidism, unspecified; K21.9 Gastro-esophageal reflux disease without esophagitis; Z87.891 Personal history of nicotine dependence
CPT/HCPCS: 36415; 71046-TC-FY; 80053; 81003; 82550; 83880; 84484; 85025; 87040; 87070; 87086; 87107; 87186; 87205; 87804; 87899; 93005; 93010; 94640; 94761; 99284-25; J1644

== ENCOUNTER 2019-02-01 14:25 | Observation (INO) | payer OTHER ==
--- NOTE | 2019-02-01 14:42 | PDOC ---
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 Patient woke up at 1PM, was sitting and eating lunch when he suddenly had a chest pressure and pressure in his head. Denies palpitations, SOB, nausea/ vomiting/constipation/diarrhea, abdominal pain. Does not call it a pain per se, more of a pressure under his left chest that worsens with inspiration. Denies history of blood clots. Gets reflux burning occasionally but says his pain is distinct from that. Had an ECHO 2 days ago as part of an evaluation for a similar pain. Denies recent travel out of the country, denies history of blood clots, not on AC. Past History - Past Medical History Allergies/Adverse Reactions: Allergies Allergy/AdvReac Type Severity Reaction Status Date / Time No Known Allergies Allergy Verified 02/01/19 15:04 Home Medications: Ambulatory Orders Albuterol Sulfate Inhaler - [Ventolin HFA Inhaler -] 1 - 2 inh PO QID 06/10/18 Cetirizine HCl 10 mg PO DAILY 06/10/18 Fluticasone Prop 0.05% Nasal [Flonase -] 1 - 2 spray NS DAILY 06/10/18 Fluticasone Propion/Salmeterol [Wixela 500-50 Inhub] 1 each IH DAILY 06/10/18 Furosemide [Lasix] 40 mg PO DAILY 06/10/18 Gabapentin 300 mg PO BID 06/10/18 Linaclotide [Linzess] 145 mcg PO DAILY 06/10/18 Montelukast Na [Singulair -] 10 mg PO HS 06/10/18 Omeprazole 40 mg PO DAILY 06/10/18 Simvastatin 20 mg PO DAILY 06/10/18 Umeclidinium Tatum [Incruse Ellipta] 62.5 mcg IH DAILY 06/10/18 Valsartan 0 mg PO DAILY 02/01/19 Asthma: Yes Cardiac Disorders: Yes COPD: Yes CHF: Yes GI Disorders: Yes (IBS, GERD) HTN: Yes Hypercholesterolemia: Yes Thyroid Disease: Yes - Surgical History Cardiac Surgery: Yes (pacemaker) - Immunization History Immunization Up to Date: Yes - Psycho Social/Smoking Cessation Hx Smoking History: Former smoker Have you smoked in the past 12 months: No Number of Cigarettes Smoked Daily: 0 If you are a former smoker, when did you quit?: LONG TIME Cigars Per Day: 0 'Breaking Loose' booklet given: 08/17/17 Hx Alcohol Use: No Drug/Substance Use Hx: No Substance Use Type: None Hx Substance Use Treatment: No Review of Systems - Review of Systems Able to Perform ROS?: Yes Constitutional: No: Symptoms Reported HEENTM: No: Symptoms Reported Respiratory: No: Symptoms reported Cardiac (ROS): Yes: Chest Pain. No: Lightheadedness, Palpitations, Syncope, Chest Tightness ABD/GI: No: Constipated, Diarrhea, Nausea, Poor Appetite, Poor Fluid Intake, Vomiting : No: Symptoms Reported Musculoskeletal: No: Symptoms Reported Integumentary: Yes: Symptoms Reported Neurological: Yes: Headache. No: Numbness, Paresthesia, Tremors, Weakness Endocrine: No: Symptoms Reported Hematologic/Lymphatic: No: Symptoms Reported All Other Systems: Reviewed and Negative *Physical Exam - Physical Exam General Appearance: Yes: Nourished, Appropriately Dressed, Thin. No: Apparent Distress HEENT: positive: EOMI, DOYLE, Normal Voice, Symmetrical, Pharynx Normal, Hearing Grossly Normal. negative: Scleral Icterus (R), Scleral Icterus (L) Neck: positive: Supple. negative: Tender, Rigid, Lymphadenopathy (R), Lymphadenopathy (L) Respiratory/Chest: positive: Lungs Clear, Normal Breath Sounds. negative: Chest Tender, Respiratory Distress, Accessory Muscle Use, Labored Respiration, Crackles, Rales, Rhonchi, Stridor, Wheezing Cardiovascular: positive: Regular Rhythm, Regular Rate. negative: Edema, Murmur Gastrointestinal/Abdominal: positive: Normal Bowel Sounds, Flat, Soft. negative : Tender, Organomegaly, Pulsatile Mass, Guarding, Rebound Musculoskeletal: positive: Normal Inspection. negative: CVA Tenderness, Vertebral Tenderness Extremity: positive: Normal Capillary Refill, Normal Inspection, Normal Range of Motion. negative: Tender, Pelvis Stable, Pedal Edema, Swelling, Calf Tenderness Integumentary: positive: Normal Color, Dry, Warm Neurologic: positive: Alert, Normal Mood/Affect, Normal Response ED Treatment Course - LABORATORY CBC & Chemistry Diagram: 02/01/19 15:15 02/01/19 15:15 Medical Decision Making - Medical Decision Making 02/01/19 14:41 Jasen Abdi is an 88M with PMH CAD s/p pacemaker, ILD in RUL, HTN, HLD, asthma, GERD on omeprazole, and multiple hospitalizations for PNA presenting with new onset chest pain. Presentation concerning for cardiac vs. pulmonary disease, including MO vs. PE vs. aortic dissection vs. PNA. Patient recently had ECHO showing EF 55-60% with mild tricuspid regurg and aortic valve stenosis. Has sputum cultures positive in the past for Aspergillus and Pseudomonas PNA. CT thorax 2 days ago shows ILD primarily in R upper lobe. Evaluating via: CMP CBC ECG CXR Coags Mag/Phos CP TSH Labs notable for: - Na 124 - eosinophils 15.3 - Ca 8.2 - trop <0.02 ECG paced rhythm, HR 65, QRS 160, QTc 492, no evidence of ischemic changes, TWI V1, V2. Repleting Na slowly with 1L NS. CXR shows R>L pulmonary edema vs. congestion. When compared to CT 2 days ago, CT evident for RUL pathology not obvious on CXR. 02/01/19 17:10 Discussed medical history with family, say that PMD got ECHO and CT done 2 days ago to evaluate wheezing/COPD, but had not yet seen results/consulted family about them. Has pulmonology appointment on Sunday. Will admit to tele for ACS and further characterization of ILD as a potential cause for chest pain. 02/01/19 19:44 Discussed admission with dorothy Jaramillo for tele/obs for ACS evaluation, primary care will discuss ILD in the AM. Discharge - Discharge Information Problems reviewed: Yes Clinical Impression/Diagnosis: Hyponatremia, Interstitial lung disease Chest pain Qualifiers: Chest pain type: unspecified Qualified Code(s): R07.9 - Chest pain, unspecified - Follow up/Referral Referrals: Carl Ovalles MD [Primary Care Provider] - - Patient Discharge Instructions - Post Discharge Activity
[2019-02-01 15:35] LABS: BASO % 0.5 % (0-2.0); EOS % 15.3 % (0-4.5); HEMATOCRIT 38.9 % (35.4-49); HEMOGLOBIN 12.9 GM/dL (11.7-16.9); LYMPH % 9.1 % (8-40); MCH 29.9 pg (25.7-33.7); MCHC 33.2 g/dl (32.0-35.9); MEAN CELL VOLUME 89.8 fl (80-96); MEAN PLT VOLUME 6.8 fl (7.5-11.1); MONO % 7.5 % (3.8-10.2); NEUT % 67.6 % (42.8-82.8); PLATELET COUNT 275 K/MM3 (134-434); RBC 4.34 M/mm3 (4.00-5.60); RDW 14.3 % (11.9-15.9); WHITE BLOOD COUNT 8.7 K/mm3 (4.0-10.0)
[2019-02-01 15:53] LABS: INR 1.06 (0.83-1.09); PROTHROMBIN TIME (PATIENT) 12.5 SEC (9.7-13.0)
[2019-02-01 15:56] LABS: ACTIVATED PTT 33.5 SECONDS (25.2-36.5)
[2019-02-01 16:11] LABS: ALBUMIN 3.7 g/dl (3.4-5.0); BILIRUBIN,TOTAL 0.4 mg/dL (0.2-1); BLOOD UREA NITROGEN 18.4 mg/dL (7-18); CALCIUM 8.2 mg/dL (8.5-10.1); PHOSPHOROUS 3.4 mg/dL (2.5-4.9); POTASSIUM 4.1 mmol/L (3.5-5.1); TOT PROT 6.4 g/dl (6.4-8.2)
[2019-02-01] MEDS ORDERED: SODIUM CHLORIDE 0.9% 500 ML INFUS.BAG IV ONE (16:31)
--- NOTE | 2019-02-01 16:37 | PDOC ---
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 - Physicial Exam PE: 02/01/19 17:04 Vitals: Triage Vital signs reviewed General Appearance: No acute distress, well nourished well developed, Head: Atraumatic, Cardiac: Regular rate and rhythym, Lungs: Clear to auscultation bilateral, good air movement bilaterally, Abdomen: Soft, non distended, normal bowel sounds, non tender to palpation Extremities: Full range of motion to all extremities, no cyanosis, clubbing, or edema Skin: Warm and dry, no rashes or lesions, no rash, no petechiae Psych: Normal mood, normal affect - Medical Decision Making 02/01/19 17:04 88 years old with multiple medical problems paced rhythm heart score 5 presents with chest pain Troponin negative however patient found to be hyponatremic on labs will observe for cardiac monitoring serial troponins and correction of hyponatremia Heart Score/ECG Review - ECG Impressions Comment:: 02/01/19 17:05 Paced rhythm
--- NOTE | 2019-02-01 19:39 | PDOC ---
*Physical Exam - Vital Signs Last Vital Signs Temp Pulse Resp BP Pulse Ox 97.8 F 64 20 123/72 99 02/01/19 14:25 02/01/19 16:43 02/01/19 16:43 02/01/19 16:43 02/01/19 16:43 ED Treatment Course - LABORATORY CBC & Chemistry Diagram: 02/01/19 15:15 02/01/19 15:15 - ADDITIONAL ORDERS Additional order review: Laboratory Results 02/01/19 02/01/19 02/01/19 15:15 15:15 15:15 PT with INR 12.50 INR 1.06 PTT (Actin FS) 33.5 Sodium 124 L Potassium 4.1 Chloride 87 L Carbon Dioxide 27 Anion Gap 10 BUN 18.4 H Creatinine 1.0 Est GFR (CKD-EPI)AfAm 77.00 Est GFR (CKD-EPI)NonAf 66.43 Random Glucose 113 H Calcium 8.2 L Phosphorus 3.4 Magnesium 2.0 Total Bilirubin 0.4 AST 29 ALT 23 Alkaline Phosphatase 100 Creatine Kinase 168 Creatine Kinase Index 3.7 CK-MB (CK-2) 6.3 H Troponin I < 0.02 Total Protein 6.4 Albumin 3.7 Lipase 125 TSH 2.65 D 02/01/19 15:15 RBC 4.34 MCV 89.8 MCHC 33.2 RDW 14.3 MPV 6.8 L Neutrophils % 67.6 D Lymphocytes % 9.1 D Monocytes % 7.5 Eosinophils % 15.3 H D Basophils % 0.5 D - Medications Given in the ED: ED Medications Discontinued Medications Generic Name Dose Route Start Last Admin Trade Name Tyrelq PRN Reason Stop Dose Admin Sodium Chloride 1,000 ml 02/01/19 16:31 02/01/19 16:45 Normal Saline - IV 02/01/19 16:32 1,000 ml ONCE ONE Administration Discharge - Discharge Information Clinical Impression/Diagnosis: Hyponatremia, Interstitial lung disease Chest pain Qualifiers: Chest pain type: unspecified Qualified Code(s): R07.9 - Chest pain, unspecified - Follow up/Referral Referrals: Carl Ovalles MD [Primary Care Provider] - - Patient Discharge Instructions - Post Discharge Activity
--- NOTE | 2019-02-01 20:16 | HP ---
Admitting History and Physical - Primary Care Physician PCP: Carl Ovalles - Admission Chief Complaint: Chest Pressure History of Present Illness: This is a 88 y/o man with a PMHx of COPD (O2, prn), Afib (no AC), CHF, HTN, HLD , GERD, Hypothyroidism, Former Smoker. Who presents to the ED with his granddaughter for chest pressure and wheezing. Patient is Icelandic speaking, his granddaughter was at the bedside, and translated. The patient reports while attempting to make breakfast this morning, he was standing at the stove, when he became lightheaded, dizzy and had midsternal non-radiating chest pressure. Patient also reports having right flank x 3-4 days ago. Per the granddaughter the patient had an Echo 2 days ago as well as a Lung scan and an upcoming appointment with the Commercial Production Editor to discuss the scan results. Patient denies fever, chills, cough, GARNER, palpitations, AP, N/V/D, constipation, dysuria. Patient denies recent travel or sick contact exposures. History Source: Patient, Family Member Limitations to Obtaining History: Language Barrier (Icelandic), Physical Impairment (ABSENTEE-SHAWNEE- hearing aid R- ear) - Past Medical History Cardiovascular: Yes: CHF, HTN, Hyperlipdemia Pulmonary: Yes: Asthma, Bronchitis, COPD, O2 Dependent, Pneumonia. No: Cancer, Previously Intubated, Pulmonary Embolus, Pulmonary Fibrosis, Sleep Apnea Gastrointestinal: Yes: Inflamatory Bowel Disease Endocrine: Yes: Hypothyroidism - Past Surgical History Past Surgical History: Yes: Permanent Pacemaker - Smoking History Smoking history: Former smoker Have you smoked in the past 12 months: No Aproximately how many cigarettes per day: 0 If you are a former smoker, when did you quit?: LONG TIME - Alcohol/Substance Use Hx Alcohol Use: No History of Substance Use: reports: None - Social History Usual Living Arrangement: Yes: Alone ADL: Family Assistance History of Recent Travel: No Home Medications - Allergies Allergies/Adverse Reactions: Allergies Allergy/AdvReac Type Severity Reaction Status Date / Time No Known Allergies Allergy Verified 02/01/19 15:04 - Home Medications Home Medications: Ambulatory Orders Albuterol Sulfate Inhaler - [Ventolin HFA Inhaler -] 1 - 2 inh PO QID 06/10/18 Cetirizine HCl 10 mg PO DAILY 06/10/18 Fluticasone Prop 0.05% Nasal [Flonase -] 1 - 2 spray NS DAILY 06/10/18 Fluticasone Propion/Salmeterol [Wixela 500-50 Inhub] 1 each IH DAILY 06/10/18 Furosemide [Lasix] 40 mg PO DAILY 06/10/18 Gabapentin 300 mg PO BID 06/10/18 Linaclotide [Linzess] 145 mcg PO DAILY 06/10/18 Montelukast Na [Singulair -] 10 mg PO HS 06/10/18 Omeprazole 40 mg PO DAILY 06/10/18 Simvastatin 20 mg PO DAILY 06/10/18 Umeclidinium [place] [Incruse Ellipta] 62.5 mcg IH DAILY 06/10/18 Valsartan 0 mg PO DAILY 02/01/19 Family Medical History Family History: Unable to Obtain Review of Systems - Review of Systems Constitutional: reports: Weakness Eyes: reports: No Symptoms HENT: reports: No Symptoms Neck: reports: No Symptoms Cardiovascular: reports: Chest Pain, Shortness of Breath Respiratory: reports: Cough, Wheezing Gastrointestinal: reports: No Symptoms Genitourinary: reports: Flank Pain. denies: Burning, Discharge, Dysuria, Frequency, Hematuria, Testicular Pain, Testicular Swelling Breasts: reports: No Symptoms Reported Musculoskeletal: reports: Back Pain Integumentary: reports: No Symptoms Neurological: reports: No Symptoms Endocrine: reports: No Symptoms Hematology/Lymphatic: reports: No Symptoms Psychiatric: reports: No Symptoms Pain Intensity: 4 Physical Examination Vital Signs: Vital Signs Temperature 97.8 F 02/01/19 19:51 Pulse Rate 77 02/01/19 19:51 Respiratory Rate 18 02/01/19 19:51 Blood Pressure 134/69 02/01/19 19:51 O2 Sat by Pulse Oximetry (%) 98 02/01/19 19:51 Constitutional: Yes: Well Nourished, No Distress, Calm Eyes: Yes: WNL, Conjunctiva Clear, EOM Intact, PERRL HENT: Yes: WNL, Atraumatic, Normocephalic, Other Neck: Yes: WNL, Supple, Trachea Midline Cardiovascular: Yes: Pulse Irregular, S1, S2 Respiratory: Yes: Diminished (bases) Gastrointestinal: Yes: WNL, Normal Bowel Sounds, Soft ...Rectal Exam: Yes: Deferred Renal/: Yes: WNL Breast(s): Yes: WNL Musculoskeletal: Yes: Back Pain (TTP) Extremities: Yes: WNL Edema: No Peripheral Pulses WNL: Yes Neurological: Yes: WNL, Alert, Oriented, Cran Nerves II-XII Intact ...Motor Strength: WNL Psychiatric: Yes: WNL, Alert, Oriented Labs: CBC, BMP 02/01/19 15:15 02/01/19 15:15 Laboratory Results - last 24 hr 02/01/19 02/01/19 02/01/19 15:15 15:15 15:15 WBC 8.7 RBC 4.34 Hgb 12.9 Hct 38.9 MCV 89.8 MCH 29.9 MCHC 33.2 RDW 14.3 Plt Count 275 MPV 6.8 L Absolute Neuts (auto) 5.9 Neutrophils % 67.6 D Lymphocytes % 9.1 D Monocytes % 7.5 Eosinophils % 15.3 H D Basophils % 0.5 D Nucleated RBC % 0 PT with INR INR PTT (Actin FS) Sodium 124 L Potassium 4.1 Chloride 87 L Carbon Dioxide 27 Anion Gap 10 BUN 18.4 H Creatinine 1.0 Est GFR (CKD-EPI)AfAm 77.00 Est GFR (CKD-EPI)NonAf 66.43 Random Glucose 113 H Calcium 8.2 L Phosphorus 3.4 Magnesium 2.0 Total Bilirubin 0.4 AST 29 ALT 23 Alkaline Phosphatase 100 Creatine Kinase 168 Creatine Kinase Index 3.7 CK-MB (CK-2) 6.3 H Troponin I < 0.02 Total Protein 6.4 Albumin 3.7 Lipase 125 TSH 2.65 D 02/01/19 02/01/19 02/02/19 15:15 21:00 02:50 WBC RBC Hgb Hct MCV MCH MCHC RDW Plt Count MPV Absolute Neuts (auto) Neutrophils % Lymphocytes % Monocytes % Eosinophils % Basophils % Nucleated RBC % PT with INR 12.50 INR 1.06 PTT (Actin FS) 33.5 Sodium Potassium Chloride Carbon Dioxide Anion Gap BUN Creatinine Est GFR (CKD-EPI)AfAm Est GFR (CKD-EPI)NonAf Random Glucose Calcium Phosphorus Magnesium Total Bilirubin AST ALT Alkaline Phosphatase Creatine Kinase Creatine Kinase Index CK-MB (CK-2) Troponin I < 0.02 < 0.02 Total Protein Albumin Lipase TSH Intake & Output 01/30/19 01/31/19 02/01/1902/02/19 23:59 23:59 23:59 23:59 Weight 64.41 kg Current Medications Generic Name Dose Route Start Last Admin Trade Name Sudarshan PRN Reason Stop Dose Admin Atorvastatin Calcium 10 mg 02/01/19 22:00 02/01/19 23:13 Lipitor - PO 10 mg HS ANA M Administration Budesonide/Formoterol Fumarate 2 puff 02/01/19 22:00 02/01/19 23:14 Symbicort 160/4.5mcg - IH Not Given BID ANA M Gabapentin 300 mg 02/01/19 22:00 02/01/19 23:13 Neurontin - PO 300 mg BID ANA M Administration Montelukast Sodium 10 mg 02/01/19 22:00 02/01/19 23:13 Singulair - PO 10 mg HS ANA M Administration Pantoprazole Sodium 40 mg 02/02/19 10:00 Protonix - PO DAILY ANA M Tiotropium [place] 2 puff 02/02/19 10:00 Spiriva Respimat IH DAILY ANA M Imaging - Results Chest X-ray: Report Reviewed, Image Reviewed EKG: Image Reviewed Problem List - Problems (1) Chest pain Assessment/Plan: r/o ACS HEART Score 4 Continue cardiac monitoring Serial Enzymes negx1, will continue to trend Appreciate Cardiology consult Recent Echo reviewed Asa Code(s): R07.9 - CHEST PAIN, UNSPECIFIED Qualifiers: Chest pain type: unspecified Qualified Code(s): R07.9 - Chest pain, unspecified (2) Interstitial lung disease Assessment/Plan: CT chest reviewed Appreciate Pulmonology consult Continue Spiriva, Symbicort Duoneb prn Code(s): J84.9 - INTERSTITIAL PULMONARY DISEASE, UNSPECIFIED (3) Chronic hyponatremia Assessment/Plan: Likely secondary to medication Na Deficit 522.9 mEq NS bolus given in ED Goal correction 6-8meq/24hrs Appreciate Nephrology consult Serum Osmo. Urine Osmo, Urine Lytes, Na Spot Hold Lasix for now Monitor BMP Monitor vitals Code(s): E87.1 - HYPO-OSMOLALITY AND HYPONATREMIA (4) HTN (hypertension) Assessment/Plan: stable Monitor BP Continue Valsartan, when dosage verified with pt's home pharmacy ([facility], ) Monitor renal function Code(s): I10 - ESSENTIAL (PRIMARY) HYPERTENSION (5) CHF (congestive heart failure) Assessment/Plan: stable No acute flare Chest Xray report-emphysematous changes noted in right side no infiltrate, mass or effusion, no acute change in lungs compared to 01/30/19 Will hold Lasix secondary to Na 124 Monitor vitals Code(s): I50.9 - HEART FAILURE, UNSPECIFIED (6) History of permanent cardiac pacemaker placement Code(s): Z95.0 - PRESENCE OF CARDIAC PACEMAKER Assessment/Plan This is a 88 y/o man with a PMHx of COPD (O2, prn), Afib (no AC), CHF, HTN, HLD , GERD, Hypothyroidism, Former Smoker. Placed in Telemetry Observation for Chest Pain r/o ACS, Chronic Hyponatremia for further evaluation of their emergent condition. Plan: See Problem List FEN Replete lytes prn Low Na Diet DVT ppx OOB SCDs Heparin SQ Dispo: Observation Visit type - Emergency Visit Emergency Visit: Yes ED Registration Date: 02/01/19 Care time: The patient presented to the Emergency Department on the above date and was hospitalized for further evaluation of their emergent condition. - New Patient This patient is new to me today: Yes Date on this admission: 02/01/19 - Critical Care Critical Care patient: No
[2019-02-01] MEDS ORDERED: MONTELUKAST NA 10 MG TABLET ONE (22:50)
[2019-02-01] MEDS ORDERED: ATORVASTATIN CA 10 MG TABLET (FP) ONE (22:50)
[2019-02-01] MEDS ORDERED: GABAPENTIN 100 MG CAPSULE (FP) ONE (22:50)
[2019-02-01] MEDS: GABAPENTIN 300 MG CAPSULE (FP) PO SCH (23:13)
[2019-02-01] MEDS: ATORVASTATIN CA 10 MG TABLET (FP) PO SCH (23:13)
[2019-02-01] MEDS: MONTELUKAST NA 10 MG TABLET PO SCH (23:13)
[2019-02-01] MEDS: BUDESONIDE/FORMETEROL FUMARATE 160/4.5 mcg INHALER IH SCH (23:14)
[2019-02-02 06:36] LABS: BASO % 0.5 % (0-2.0); EOS % 16.9 % (0-4.5); HEMOGLOBIN 13.1 GM/dL (11.7-16.9); LYMPH % 14.3 % (8-40); MCH 29.9 pg (25.7-33.7); MCHC 33.7 g/dl (32.0-35.9); MEAN CELL VOLUME 88.7 fl (80-96); MONO % 8.7 % (3.8-10.2); NEUT % 59.6 % (42.8-82.8); PLATELET COUNT 259 K/MM3 (134-434); RDW 14.4 % (11.9-15.9); WHITE BLOOD COUNT 7.8 K/mm3 (4.0-10.0)
[2019-02-02 07:16] LABS: BLOOD UREA NITROGEN 16.7 mg/dL (7-18); MAGNESIUM 2.1 mg/dL (1.8-2.4); PHOSPHOROUS 3.1 mg/dL (2.5-4.9); POTASSIUM 4.5 mmol/L (3.5-5.1)
--- NOTE | 2019-02-02 08:51 | CON.CARD ---
Consult Consult Specialty:: Cardiology Referred by:: Dr. Davis Reason for Consultation:: Dizziness - History of Present Illness Chief Complaint: Dizziness and left sided chest pressure History of Present Illness: This is a 88 y/o man with a PMHx of COPD (O2, prn), Afib (no AC), CHF, HTN, HLD , GERD, Hypothyroidism, Former Smoker. Who presents to the ED with his granddaughter for chest pressure and wheezing. Patient is Pakistani speaking, his granddaughter was at the bedside, and translated. The patient reports while attempting to make breakfast this morning, he was standing at the stove, when he became lightheaded, dizzy and had midsternal non-radiating chest pressure. Patient also reports having right flank x 3-4 days ago. Per the granddaughter the patient had an Echo 2 days ago as well as a Lung scan and an upcoming appointment with the Choir Accompanist to discuss the scan results. Patient denies fever, chills, cough, GARNER, palpitations, AP, N/V/D, constipation, dysuria. Patient denies recent travel or sick contact exposures. He does not recall when his last stress test was. He denies exertional chest pain. Recent outpatient CT showed moderate to severe ILD. Echo here 01/2019: Mild , normal LVEF - History Source History Provided By: Patient (Hx in Pakistani) Limitations to Obtaining History: No Limitations - Past Medical History Cardio/Vascular: Yes: CHF, HTN, Hyperlipdemia, Other (Pacemaker- [facility] [place]) Pulmonary: Yes: Asthma, Bronchitis, COPD, O2 Dependent, Pneumonia. No: Cancer, Previously Intubated, Pulmonary Embolus, Pulmonary Fibrosis, Sleep Apnea Gastrointestinal: Yes: Inflamatory Bowel Disease Endocrine: Yes: Hypothyroidism - Past Surgical History Past Surgical History: Yes: Permanent Pacemaker - Alcohol/Substance Use Hx Alcohol Use: No History of Substance Use: reports: None - Smoking History Smoking history: Former smoker Have you smoked in the past 12 months: No Aproximately how many cigarettes per day: 0 If you are a former smoker, when did you quit?: LONG TIME - Social History ADL: Family Assistance History of Recent Travel: No Home Medications - Allergies Allergies/Adverse Reactions: Allergies Allergy/AdvReac Type Severity Reaction Status Date / Time No Known Allergies Allergy Verified 02/01/19 15:04 - Home Medications Home Medications: Ambulatory Orders Albuterol Sulfate Inhaler - [Ventolin HFA Inhaler -] 1 - 2 inh PO QID 06/10/18 Cetirizine HCl 10 mg PO DAILY 06/10/18 Fluticasone Prop 0.05% Nasal [Flonase -] 1 - 2 spray NS DAILY 06/10/18 Fluticasone Propion/Salmeterol [Wixela 500-50 Inhub] 1 each IH DAILY 06/10/18 Furosemide [Lasix] 40 mg PO DAILY 06/10/18 Gabapentin 300 mg PO BID 06/10/18 Linaclotide [Linzess] 145 mcg PO DAILY 06/10/18 Montelukast Na [Singulair -] 10 mg PO HS 06/10/18 Omeprazole 40 mg PO DAILY 06/10/18 Simvastatin 20 mg PO DAILY 06/10/18 Umeclidinium [place] [Incruse Ellipta] 62.5 mcg IH DAILY 06/10/18 Valsartan 0 mg PO DAILY 02/01/19 Family Medical History Family History: Unremarkable Review of Systems - Review of Systems Constitutional: reports: No Symptoms Eyes: reports: No Symptoms HENT: reports: No Symptoms Neck: reports: No Symptoms Cardiovascular: reports: Chest Pain Respiratory: reports: No Symptoms Gastrointestinal: reports: No Symptoms Genitourinary: reports: No Symptoms Breasts: reports: No Symptoms Reported Musculoskeletal: reports: No Symptoms Integumentary: reports: No Symptoms Neurological: reports: Dizziness Endocrine: reports: No Symptoms Hematology/Lymphatic: reports: No Symptoms Psychiatric: reports: No Symptoms - Risk Factors Known Risk Factors: Yes: Hypertension Vital Signs: Vital Signs Temperature 97.7 F 02/02/19 06:00 Pulse Rate 67 02/02/19 06:00 Respiratory Rate 21 H 02/02/19 06:00 Blood Pressure 137/64 02/02/19 06:00 O2 Sat by Pulse Oximetry (%) 96 02/02/19 04:11 Constitutional: Yes: Calm Respiratory: Yes: Other (decreased breath sounds bilaterally) Gastrointestinal: Yes: Soft Cardiovascular: Yes: Regular Rate and Rhythm JVD: No Carotid Bruit: No Heart Sounds: Yes: S1, S2 Edema: No Peripheral Pulses WNL: Yes Neurological: Yes: Alert - Other Data Labs, Other Data: CBC, BMP 02/02/19 05:38 02/02/19 05:38 INR, PTT INR 1.06 (0.83-1.09) 02/01/19 15:15 Troponin, BNP 02/01/19 02/01/19 02/02/19 15:15 21:00 02:50 Troponin I < 0.02 < 0.02 < 0.02 Troponin, BNP 02/01/19 02/01/19 02/02/19 15:15 21:00 02:50 Troponin I < 0.02 < 0.02 < 0.02 Laboratory Tests 02/01/19 02/01/19 02/01/19 15:15 15:15 15:15 WBC Hgb Plt Count PT with INR 12.50 INR 1.06 PTT (Actin FS) 33.5 Sodium Potassium Creatinine Calcium Phosphorus Magnesium Troponin I < 0.02 TSH 2.65 D 02/01/19 02/02/19 02/02/19 21:00 02:50 05:38 WBC 7.8 Hgb 13.1 Plt Count 259 PT with INR INR PTT (Actin FS) Sodium Potassium Creatinine Calcium Phosphorus Magnesium Troponin I < 0.02 < 0.02 TSH 02/02/19 05:38 WBC Hgb Plt Count PT with INR INR PTT (Actin FS) Sodium 127 L Potassium 4.5 Creatinine 1.0 Calcium 9.0 Phosphorus 3.1 Magnesium 2.1 Troponin I TSH 2.33 D ECG paced rhythm, HR 65, QRS 160, QTc 492, no evidence of ischemic changes, TWI V1, V2. Echo: Pending Assessment/Plan This is a 88 y/o man with a PMHx of COPD (O2, prn), Afib (no AC) s/p [facility] PPM, chronic diastolic CHF, HTN, HLD, GERD, Hypothyroidism, Former Smoker, ILD who presents to for evaluation of dizziness and chest pain. Found to be hyponatremic. REC: 1. Hyponatremia: -As per PMD -Does not appear volume overloaded -Recent echo with normal LVEF and only mild -Can check BNP 2. Dizziness: -Possibly due to hyponatremia -Check orthostatics -PPM seems to be functioning well on ECG -Can obtain routine [facility] interrogation in AM 3. Chest pain: -Cardiac enzymes negative x 3, no acute ECG changes. -Planned for repeat echo and would obtain a Lexiscan stress prior to d/c when lytes improved 4. ILD/COPD: -as per PMD 5. Hx of AF: -Cont home meds -will try to speak to family to clarify why not on AC or ASA therapy -Routine [facility] PPM interrogation tomorrow to assess PPM fxn and AF burden 6. Chronic diastolic CHF: euvolemic now 7. Mild : No intervention required, serial echo f/u every 1-2 years
[2019-02-02] MEDS ORDERED: PATIENT'S OWN MEDICATION (NON-FORMULARY) (Fluticasone Propion/Salmeterol [Wixela 500-50 In IH SCH (10:00)
[2019-02-02] MEDS: GABAPENTIN 300 MG CAPSULE (FP) PO SCH ×2 (10:34→22:24)
[2019-02-02] MEDS: PANTOPRAZOLE 40 MG TABLET (FP) PO SCH (10:34)
[2019-02-02] MEDS: ASPIRIN 81 MG CHEWABLE TABLETS PO SCH (10:34)
[2019-02-02] MEDS: BUDESONIDE/FORMETEROL FUMARATE 160/4.5 mcg INHALER IH SCH ×2 (11:00→22:24)
[2019-02-02] MEDS: TIOTROPIUM BROMIDE 2.5 MCG (SPIRIVA) RESPIMAT INHALER IH SCH (11:00)
--- NOTE | 2019-02-02 13:06 | CON.PULM ---
Consult Consult Specialty:: PULM/CCM Referred by:: REINALDO Reason for Consultation:: CP - History of Present Illness Chief Complaint: CP / dizziness History of Present Illness: 88 M, COPD due to previous smoking history, Afib, CHF, GERD, HTN, HLD, and hypothyroidism. Admitted via the ER due to chest pressure and dizziness. He does have have symptoms of chronic bronchitis. No specific increase in symptoms. Apparently he was making breakfast this AM and became lightheaded, dizzy and had midsternal non-radiating chest pressure. Recent outpatient workup included an ECHO and CT chest. CT: Diffuse emphysema with chronic appearing interstitial changes No travel history or sick contacts. No fever or chills. No hemoptysis or night sweats. There is no specific history that would be consistent with OSAS. - History Source History Provided By: Patient, Medical Record Limitations to Obtaining History: Language Barrier - Past Medical History Cardio/Vascular: Yes: CHF, HTN, Hyperlipdemia, Other (Pacemaker- [facility]) Pulmonary: Yes: Asthma, Bronchitis, COPD, O2 Dependent, Pneumonia. No: Cancer, Previously Intubated, Pulmonary Embolus, Pulmonary Fibrosis, Sleep Apnea Gastrointestinal: Yes: Inflamatory Bowel Disease Endocrine: Yes: Hypothyroidism - Past Surgical History Past Surgical History: Yes: Permanent Pacemaker - Alcohol/Substance Use Hx Alcohol Use: No History of Substance Use: reports: None - Smoking History Smoking history: Former smoker Have you smoked in the past 12 months: No Aproximately how many cigarettes per day: 0 If you are a former smoker, when did you quit?: LONG TIME - Social History ADL: Family Assistance History of Recent Travel: No Home Medications - Allergies Allergies/Adverse Reactions: Allergies Allergy/AdvReac Type Severity Reaction Status Date / Time No Known Allergies Allergy Verified 02/01/19 15:04 - Home Medications Home Medications: Ambulatory Orders Albuterol Sulfate Inhaler - [Ventolin HFA Inhaler -] 1 - 2 inh PO QID 06/10/18 Cetirizine HCl 10 mg PO DAILY 06/10/18 Fluticasone Prop 0.05% Nasal [Flonase -] 1 - 2 spray NS DAILY 06/10/18 Fluticasone Propion/Salmeterol [Wixela 500-50 Inhub] 1 each IH DAILY 06/10/18 Furosemide [Lasix] 40 mg PO DAILY 06/10/18 Gabapentin 300 mg PO BID 06/10/18 Linaclotide [Linzess] 145 mcg PO DAILY 06/10/18 Montelukast Na [Singulair -] 10 mg PO HS 06/10/18 Omeprazole 40 mg PO DAILY 06/10/18 Simvastatin 20 mg PO DAILY 06/10/18 Umeclidinium [place] [Incruse Ellipta] 62.5 mcg IH DAILY 06/10/18 Valsartan 0 mg PO DAILY 02/01/19 Review of Systems - Review of Systems Constitutional: denies: Chills, Fever, Loss of Appetite, Malaise, Night Sweats Eyes: reports: No Symptoms HENT: reports: No Symptoms Neck: reports: No Symptoms Cardiovascular: reports: Chest Pain. denies: Edema, Palpitations, Shortness of Breath Respiratory: reports: Cough, SOB on Exertion. denies: Hemoptysis, Orthopnea, PND, Snoring, SOB, Wheezing Gastrointestinal: reports: No Symptoms Genitourinary: reports: No Symptoms Breasts: reports: No Symptoms Reported Musculoskeletal: reports: No Symptoms Integumentary: reports: No Symptoms Neurological: reports: Dizziness. denies: Seizure Endocrine: reports: No Symptoms Hematology/Lymphatic: reports: No Symptoms Psychiatric: reports: No Symptoms Physical Exam Vital Sings: Vital Signs Temperature 97.7 F 02/02/19 10:00 Pulse Rate 76 02/02/19 10:00 Respiratory Rate 18 02/02/19 10:00 Blood Pressure 113/62 02/02/19 10:00 O2 Sat by Pulse Oximetry (%) 97 02/02/19 10:00 Constitutional: Yes: No Distress, Thin Eyes: Yes: Conjunctiva Clear, EOM Intact HENT: Yes: Atraumatic, Normocephalic Neck: Yes: Supple, Trachea Midline Cardiovascular: Yes: Regular Rate and Rhythm Respiratory: Yes: Cough, Diminished, Rhonchi. No: Accessory Muscle Use, Rales, SOB, SOB on Exertion, Stridor, Tachypnea, Wheezes ...Inspection: Yes: WNL ...Clubbing: No Gastrointestinal: Yes: Normal Bowel Sounds, Soft Renal/: Yes: WNL Musculoskeletal: Yes: WNL Extremities: Yes: WNL Edema: No Peripheral Pulses WNL: Yes Integumentary: Yes: WNL Neurological: Yes: WNL, Alert, Oriented ...Motor Strength: WNL Psychiatric: Yes: WNL, Alert, Oriented Labs: CBC, BMP 02/02/19 05:38 02/02/19 05:38 Imaging - Results Chest X-ray: Report Reviewed, Image Reviewed Cat Scan: Report Reviewed, Image Reviewed Problem List - Problems (1) Emphysema of lung Code(s): J43.9 - EMPHYSEMA, UNSPECIFIED (2) Chest pain Code(s): R07.9 - CHEST PAIN, UNSPECIFIED Qualifiers: Chest pain type: unspecified Qualified Code(s): R07.9 - Chest pain, unspecified (3) Hyponatremia Code(s): E87.1 - HYPO-OSMOLALITY AND HYPONATREMIA (4) Interstitial lung disease Code(s): J84.9 - INTERSTITIAL PULMONARY DISEASE, UNSPECIFIED (5) CHF (congestive heart failure) Code(s): I50.9 - HEART FAILURE, UNSPECIFIED (6) COPD exacerbation Code(s): J44.1 - CHRONIC OBSTRUCTIVE PULMONARY DISEASE W (ACUTE) EXACERBATION (7) HTN (hypertension) Code(s): I10 - ESSENTIAL (PRIMARY) HYPERTENSION (8) History of permanent cardiac pacemaker placement Code(s): Z95.0 - PRESENCE OF CARDIAC PACEMAKER Assessment/Plan IMP: COPD appears stable Do not suspect respiratory tract infection PLAN: Cardiology evaluation O2 as needed Monitor off ABX No indication for systemic steroids Symbicort BID Spiriva OD Singulair OD Will follow Thank you. Dr Santana
--- NOTE | 2019-02-02 13:18 | PN ---
Progress Note, Physician History of Present Illness: pt seen/examined in er chart is reviewed awake/ comfortable denies cp/sob/abd pain/headache/dizziness. - Current Medication List Current Medications: Active Medications Aspirin (Asa -) 81 mg PO DAILY [facility] Last Admin: 02/02/19 10:34 Dose: 81 mg Atorvastatin Calcium (Lipitor -) 10 mg PO HS [facility] Last Admin: 02/01/19 23:13 Dose: 10 mg Budesonide/Formoterol Fumarate (Symbicort 160/4.5mcg -) 2 puff IH BID [facility] Last Admin: 02/02/19 11:00 Dose: 2 puff Gabapentin (Neurontin -) 300 mg PO BID [facility] Last Admin: 02/02/19 10:34 Dose: 300 mg Montelukast Sodium (Singulair -) 10 mg PO HS [facility] Last Admin: 02/01/19 23:13 Dose: 10 mg Pantoprazole Sodium (Protonix -) 40 mg PO DAILY [facility] Last Admin: 02/02/19 10:34 Dose: 40 mg Tiotropium [place] (Spiriva Respimat) 2 puff IH DAILY [facility] Last Admin: 02/02/19 11:00 Dose: 2 puff - Objective Vital Signs: Vital Signs Temperature 97.7 F 02/02/19 10:00 Pulse Rate 76 02/02/19 10:00 Respiratory Rate 18 02/02/19 10:00 Blood Pressure 113/62 02/02/19 10:00 O2 Sat by Pulse Oximetry (%) 97 02/02/19 10:00 Constitutional: Yes: No Distress, Calm Eyes: Yes: Conjunctiva Clear Neck: Yes: Supple Cardiovascular: Yes: Regular Rate and Rhythm Respiratory: Yes: Diminished Gastrointestinal: Yes: Soft, Abdomen, Obese Edema: No Labs: CBC, BMP 02/02/19 05:38 02/02/19 05:38 INR, PTT INR 1.06 (0.83-1.09) 02/01/19 15:15 Problem List - Problems (1) Chest pain Code(s): R07.9 - CHEST PAIN, UNSPECIFIED Qualifiers: Chest pain type: unspecified Qualified Code(s): R07.9 - Chest pain, unspecified (2) Chronic hyponatremia Code(s): E87.1 - HYPO-OSMOLALITY AND HYPONATREMIA (3) Emphysema of lung Code(s): J43.9 - EMPHYSEMA, UNSPECIFIED (4) HTN (hypertension) Code(s): I10 - ESSENTIAL (PRIMARY) HYPERTENSION (5) History of permanent cardiac pacemaker placement Code(s): Z95.0 - PRESENCE OF CARDIAC PACEMAKER Assessment/Plan Monitor on tele [place] ruled out cardiology consult appreciated Echo and stress test for tomorrow Monitor BMP Check lipid profile will follow
[2019-02-02 19:07] VITALS: BMI 25.0
[2019-02-02] MEDS: ATORVASTATIN CA 10 MG TABLET (FP) PO SCH (22:24)
[2019-02-02] MEDS: MONTELUKAST NA 10 MG TABLET PO SCH (22:24)
--- NOTE | 2019-02-03 01:05 | EKG ---
Test Reason : Blood Pressure : / mmHG Vent. Rate : 065 BPM Atrial Rate : 065 BPM P-R Int : 000 ms QRS Dur : 160 ms QT Int : 474 ms P-R-T Axes : 000 266 056 degrees QTc Int : 492 ms AV SEQUENTIAL PACING WITH PREMATURE VENTRICULAR COMPLEXES WHEN COMPARED WITH ECG OF 10-JUN-2018 11:07, LIKELY NO SIGNIFICANT CHANGES Confirmed by АЛЕКСАНДР BARRETT MD ([id number]) on 02/03/2019 1:04:58 AM Referred By: Confirmed By:АЛЕКСАНДР BARRETT MD
[2019-02-03 08:41] LABS: BLOOD UREA NITROGEN 19.6 mg/dL (7-18); CALCIUM 9.1 mg/dL (8.5-10.1); N-TERMINAL BNP 236.1 pg/ml (5-450); POTASSIUM 4.2 mmol/L (3.5-5.1)
[2019-02-03 08:42] LABS: CHOLESTEROL 173 mg/dL (50-200); HDL CHOLESTEROL 91 mg/dL (40-60); LDL CHOLESTEROL (ONLY SJRH) 71 mg/dL (5-100); TRIGLYCERIDES 77 mg/dL (0-150)
[2019-02-03] MEDS: TIOTROPIUM BROMIDE 2.5 MCG (SPIRIVA) RESPIMAT INHALER IH SCH (09:14)
[2019-02-03] MEDS: PANTOPRAZOLE 40 MG TABLET (FP) PO SCH (09:14)
[2019-02-03] MEDS: GABAPENTIN 300 MG CAPSULE (FP) PO SCH ×2 (09:14→22:09)
[2019-02-03] MEDS: ASPIRIN 81 MG CHEWABLE TABLETS PO SCH (09:14)
[2019-02-03] MEDS: BUDESONIDE/FORMETEROL FUMARATE 160/4.5 mcg INHALER IH SCH ×2 (09:14→22:10)
--- NOTE | 2019-02-03 10:11 | PN ---
Progress Note, Physician Chief Complaint: dizzy History of Present Illness: says no more dizziness. no syncope no cp, sob, palp estimates last PM clinic check was 10/14 - Current Medication List Current Medications: Active Medications Aspirin (Asa -) 81 mg PO DAILY [facility] Last Admin: 02/03/19 09:14 Dose: 81 mg Atorvastatin Calcium (Lipitor -) 10 mg PO HS [facility] Last Admin: 02/02/19 22:24 Dose: 10 mg Budesonide/Formoterol Fumarate (Symbicort 160/4.5mcg -) 2 puff IH BID [facility] Last Admin: 02/03/19 09:14 Dose: 2 puff Gabapentin (Neurontin -) 300 mg PO BID [facility] Last Admin: 02/03/19 09:14 Dose: 300 mg Montelukast Sodium (Singulair -) 10 mg PO HS [facility] Last Admin: 02/02/19 22:24 Dose: 10 mg Pantoprazole Sodium (Protonix -) 40 mg PO DAILY [facility] Last Admin: 02/03/19 09:14 Dose: 40 mg Tiotropium [place] (Spiriva Respimat) 2 puff IH DAILY [facility] Last Admin: 02/03/19 09:14 Dose: 2 puff - Objective Vital Signs: Vital Signs Temperature 97.8 F 02/03/19 08:32 Pulse Rate 92 H 02/03/19 08:32 Respiratory Rate 18 02/03/19 08:32 Blood Pressure 120/61 02/03/19 08:32 O2 Sat by Pulse Oximetry (%) 96 02/02/19 18:51 Constitutional: Yes: Well Nourished, No Distress, Calm Cardiovascular: Yes: Regular Rate and Rhythm, S1, S2. No: Gallop, Murmur Respiratory: Yes: Regular, CTA Bilaterally. No: Accessory Muscle Use Extremities: No: Cold Edema: No Neurological: Yes: Alert, Oriented. No: Seizure Psychiatric: No: Agitated Labs: CBC, BMP 02/02/19 05:38 02/03/19 07:20 INR, PTT INR 1.06 (0.83-1.09) 02/01/19 15:15 Assessment/Plan ECG paced rhythm, HR 65, QRS 160, QTc 492, no evidence of ischemic changes, TWI V1, V2. Assessment/Plan This is a 88 y/o man with a PMHx of COPD (O2, prn), Afib (no AC) s/p Wenden Sci PPM, chronic diastolic CHF, HTN, HLD, GERD, Hypothyroidism, Former Smoker, ILD who presents to for evaluation of dizziness and chest pain. Found to be hyponatremic. REC: Hyponatremia: -Does not appear volume overloaded -Recent echo with normal LVEF and only mild -improving gradually, tx as per pmd Dizziness: -Possibly due to hyponatremia -orthostatic BPs here unremarkable -PPM seems to be functioning well on ECG, apparently stable interrogation with EP 10/14 -will request Wenden Sci interrogation today Chest pain: -Cardiac enzymes negative x 3, no acute ECG changes. -will obtain echo and Lexiscan stress prior to d/c (ordered) ILD/COPD: -as per PMD Hx of AF: -Cont home meds -f/u with EP as doing--will attempt to contact today re: intended anti- thrombotic regimen (pt denies aspirin or AC) -Routine W[employer] Sci PPM interrogation tomorrow to assess PPM fxn and AF burden Chronic diastolic CHF: euvolemic now Mild : No intervention required, serial echo f/u every 1-2 years
--- NOTE | 2019-02-03 10:23 | PN ---
Progress Note (short form) - Note Progress Note: Resting in NAD on RA. Denies CP or SOB. Minimal dry cough. No acute events overnight. Intake & Output 01/31/19 02/01/19 02/02/19 02/03/19 23:59 23:59 23:59 23:59 Intake Total 240 0 Balance 240 0 Weight 142 lb 141 lb 1.6 oz 141 lb Last Vital Signs Temp Pulse Resp BP Pulse Ox 97.8 F 92 H 18 120/61 96 02/03/19 08:32 02/03/19 08:32 02/03/19 08:32 02/03/19 08:32 02/02/19 18:51 Active Medications Aspirin (Asa -) 81 mg PO DAILY [facility] Last Admin: 02/03/19 09:14 Dose: 81 mg Atorvastatin Calcium (Lipitor -) 10 mg PO [facility] Last Admin: 02/02/19 22:24 Dose: 10 mg Budesonide/Formoterol Fumarate (Symbicort 160/4.5mcg -) 2 puff IH BID [facility] Last Admin: 02/03/19 09:14 Dose: 2 puff Gabapentin (Neurontin -) 300 mg PO BID [facility] Last Admin: 02/03/19 09:14 Dose: 300 mg Montelukast Sodium (Singulair -) 10 mg PO HS [facility] Last Admin: 02/02/19 22:24 Dose: 10 mg Pantoprazole Sodium (Protonix -) 40 mg PO DAILY [facility] Last Admin: 02/03/19 09:14 Dose: 40 mg Tiotropium [place] (Spiriva Respimat) 2 puff IH DAILY [facility] Last Admin: 02/03/19 09:14 Dose: 2 puff Constitutional: Yes: No Distress, Thin Eyes: Yes: Conjunctiva Clear, EOM Intact HENT: Yes: Atraumatic, Normocephalic Neck: Yes: Supple, Trachea Midline Cardiovascular: Yes: Regular Rate and Rhythm Respiratory: Yes: Cough, Diminished, Rhonchi. No: Accessory Muscle Use, Rales, SOB, SOB on Exertion, Stridor, Tachypnea, Wheezes ...Inspection: Yes: WNL ...Clubbing: No Gastrointestinal: Yes: Normal Bowel Sounds, Soft Renal/: Yes: WNL Musculoskeletal: Yes: WNL Extremities: Yes: WNL Edema: No Peripheral Pulses WNL: Yes Integumentary: Yes: WNL Neurological: Yes: WNL, Alert, Oriented ...Motor Strength: WNL Psychiatric: Yes: WNL, Alert, Oriented Labs: Laboratory Results - last 24 hr 02/03/19 02/03/19 07:20 07:20 Sodium 128 L Potassium 4.2 Chloride 94 L Carbon Dioxide 25 Anion Gap 10 BUN 19.6 H Creatinine 1.0 Est GFR (CKD-EPI)AfAm 77.00 Est GFR (CKD-EPI)NonAf 66.43 Random Glucose 90 Calcium 9.1 B-Natriuretic Peptide 236.1 Triglycerides 77 Cholesterol 173 Total LDL Cholesterol 71 HDL Cholesterol 91 H Problem List - Problems (1) Emphysema of lung Code(s): J43.9 - EMPHYSEMA, UNSPECIFIED (2) Chest pain Code(s): R07.9 - CHEST PAIN, UNSPECIFIED Qualifiers: Chest pain type: unspecified Qualified Code(s): R07.9 - Chest pain, unspecified (3) Hyponatremia Code(s): E87.1 - HYPO-OSMOLALITY AND HYPONATREMIA (4) Interstitial lung disease Code(s): J84.9 - INTERSTITIAL PULMONARY DISEASE, UNSPECIFIED (5) CHF (congestive heart failure) Code(s): I50.9 - HEART FAILURE, UNSPECIFIED (6) COPD exacerbation Code(s): J44.1 - CHRONIC OBSTRUCTIVE PULMONARY DISEASE W (ACUTE) EXACERBATION (7) HTN (hypertension) Code(s): I10 - ESSENTIAL (PRIMARY) HYPERTENSION (8) History of permanent cardiac pacemaker placement Code(s): Z95.0 - PRESENCE OF CARDIAC PACEMAKER Assessment/Plan IMP: COPD: currently stable Do not suspect respiratory tract infection PLAN: O2 as needed Monitor off ABX No indication for systemic steroids Symbicort BID Spiriva OD Singulair OD There is no Pulmonary contraindication for DC home Dr Santana Problem List - Problems (1) Emphysema of lung Code(s): J43.9 - EMPHYSEMA, UNSPECIFIED (2) Chest pain Code(s): R07.9 - CHEST PAIN, UNSPECIFIED Qualifiers: Chest pain type: unspecified Qualified Code(s): R07.9 - Chest pain, unspecified (3) Hyponatremia Code(s): E87.1 - HYPO-OSMOLALITY AND HYPONATREMIA (4) Interstitial lung disease Code(s): J84.9 - INTERSTITIAL PULMONARY DISEASE, UNSPECIFIED (5) CHF (congestive heart failure) Code(s): I50.9 - HEART FAILURE, UNSPECIFIED (6) COPD exacerbation Code(s): J44.1 - CHRONIC OBSTRUCTIVE PULMONARY DISEASE W (ACUTE) EXACERBATION (7) HTN (hypertension) Code(s): I10 - ESSENTIAL (PRIMARY) HYPERTENSION (8) History of permanent cardiac pacemaker placement Code(s): Z95.0 - PRESENCE OF CARDIAC PACEMAKER
--- NOTE | 2019-02-03 13:04 | PN ---
Progress Note (short form) - Note Progress Note: pt seen/examined. comfortable complains of mild dizziness Vital Signs Temp 97.8 F 02/03/19 08:32 Pulse 92 H 02/03/19 08:32 Resp 18 02/03/19 08:32 BP 120/61 02/03/19 08:32 Pulse Ox 97 02/03/19 08:00 Intake & Output 02/02/19 02/03/19 02/03/19 23:59 11:59 23:59 Intake Total 240 0 Balance 240 0 Weight 141 lb 1.6 oz 141 lb Intake: Oral 240 0 Other: Voiding Method Toilet Toilet Height 5 ft 3 in Body Mass Index (BMI) 25.0 Weight Measurement Method Built in Bedscale Built in Bedscale Active Medications Aspirin (Asa -) 81 mg PO DAILY [facility] Last Admin: 02/03/19 09:14 Dose: 81 mg Atorvastatin Calcium (Lipitor -) [address] [facility] Last Admin: 02/02/19 22:24 Dose: 10 mg Budesonide/Formoterol Fumarate (Symbicort 160/4.5mcg -) 2 puff IH BID [facility] Last Admin: 02/03/19 09:14 Dose: 2 puff Gabapentin (Neurontin -) 300 mg PO BID [facility] Last Admin: 02/03/19 09:14 Dose: 300 mg Montelukast Sodium (Singulair -) [address] [facility] Last Admin: 02/02/19 22:24 Dose: 10 mg Pantoprazole Sodium (Protonix -) 40 mg PO DAILY [facility] Last Admin: 02/03/19 09:14 Dose: 40 mg Tiotropium [place] (Spiriva Respimat) 2 puff IH DAILY [facility] Last Admin: 02/03/19 09:14 Dose: 2 puff CBC, [facility] 02/02/19 05:38 02/03/19 07:20 Constitutional: Yes: No Distress, Calm Eyes: Yes: Conjunctiva Clear Neck: Yes: Supple Cardiovascular: Yes: Regular Rate and Rhythm Respiratory: Yes: Diminished Gastrointestinal: Yes: Soft, Abdomen, Obese Edema: No Labs: CBC, BMP 02/02/19 05:38 02/02/19 05:38 INR, PTT INR 1.06 (0.83-1.09) 02/01/19 15:15 Problem List - Problems (1) Chest pain Code(s): R07.9 - CHEST PAIN, UNSPECIFIED Qualifiers: Chest pain type: unspecified Qualified Code(s): R07.9 - Chest pain, unspecified (2) Chronic hyponatremia Code(s): E87.1 - HYPO-OSMOLALITY AND HYPONATREMIA (3) Emphysema of lung Code(s): J43.9 - EMPHYSEMA, UNSPECIFIED (4) HTN (hypertension) Code(s): I10 - ESSENTIAL (PRIMARY) HYPERTENSION (5) History of permanent cardiac pacemaker placement Code(s): Z95.0 - PRESENCE OF CARDIAC PACEMAKER Assessment/Plan Monitor on tele [place] ruled out cardiology consult appreciated Echo and stress test for tomorrow Monitor BMP will follow change diet - regular Renal consult- Hyponatremia--D/W Dr. Solorzano-- Will see pt Problem List - Problems (1) Chest pain Code(s): R07.9 - CHEST PAIN, UNSPECIFIED Qualifiers: Chest pain type: unspecified Qualified Code(s): R07.9 - Chest pain, unspecified (2) Chronic hyponatremia Code(s): E87.1 - HYPO-OSMOLALITY AND HYPONATREMIA (3) Emphysema of lung Code(s): J43.9 - EMPHYSEMA, UNSPECIFIED (4) HTN (hypertension) Code(s): I10 - ESSENTIAL (PRIMARY) HYPERTENSION (5) History of permanent cardiac pacemaker placement Code(s): Z95.0 - PRESENCE OF CARDIAC PACEMAKER
--- NOTE | 2019-02-03 14:05 | CONSULT ---
Consultation: REQUESTING PROVIDER: Dr. Davis CONSULT SERVICE: Nephrology HISTORY OF PRESENT ILLNESS: Patient is an 88 year old male with history of COPD (on home oxygen), Afib (not on anticoagulation), HFpEF (ECHO 02/13 with normal EF), hypertension, hyperlipidemia, hypothyroidism, interstitial lung disease, presented with complaint of chest pressure and wheezing, with associated lightheadedness, dizziness. In ED patient was noted to have EKG without acute ischemic changes, and troponins negative x3. Chest radiograph revealed no acute infiltrates. BMP remarkable for hyponatremia to 124. Patient admits taking Furosemide, denies any known thiazide diuretics at home. He is making urine. Today denies subjective fevers, chills, shorten of breath, chest pain, abdominal pain, nausea , vomiting. Nephrology service consulted for hyponatremia. Past medical history: COPD, Afib, HFpEF, hypertension, hyperlipidemia, hypothyroidism, interstitial lung disease Past surgical history: permanant pacemaker placement Family history: noncontributory Social history: Former smoker. Denies alcohol consumption, or illicit drug use. REVIEW OF SYSTEMS: CONSTITUTIONAL: Absent: fever, chills, diaphoresis, generalized weakness, malaise, loss of appetite, weight change HEENT: Absent: rhinorrhea, nasal congestion, throat pain, throat swelling, difficulty swallowing, mouth swelling, ear pain, eye pain, visual changes CARDIOVASCULAR: Absent: chest pain, syncope, palpitations, irregular heart rate, lightheadedness , peripheral edema RESPIRATORY: Absent: cough, shortness of breath, dyspnea with exertion, orthopnea, wheezing, stridor, hemoptysis GASTROINTESTINAL: Absent: abdominal pain, abdominal distension, nausea, vomiting, diarrhea, constipation, melena, hematochezia GENITOURINARY: Absent: dysuria, frequency, urgency, hesitancy, hematuria, flank pain, genital pain MUSCULOSKELETAL: Absent: myalgia, arthralgia, joint swelling, back pain, neck pain SKIN: Absent: rash, itching, pallor HEMATOLOGIC/IMMUNOLOGIC: Absent: easy bleeding, easy bruising, lymphadenopathy, frequent infections ENDOCRINE: Absent: unexplained weight gain, unexplained weight loss, heat intolerance, cold intolerance NEUROLOGIC: Absent: headache, focal weakness or paresthesias, dizziness, unsteady gait, seizure, mental status changes, bladder or bowel incontinence PSYCHIATRIC: Absent: anxiety, depression, suicidal or homicidal ideation, hallucinations. PHYSICAL EXAMINATION Vital Signs - 24 hr 02/02/19 02/02/19 02/02/19 16:05 17:39 18:51 Temperature Pulse Rate Pulse Rate [ 68 70 Apical] Pulse Rate [ 68 Right side Sitting] Pulse Rate [ 89 Right side Standing] Pulse Rate [ 73 Right side Supine] Pulse Rate [ Sitting] Pulse Rate [ Standing] Pulse Rate [ Supine] Respiratory 18 18 18 Rate Blood Pressure Blood Pressure 103/57 L 122/61 [Right Arm] Blood Pressure 103/57 L [Right side Sitting] Blood Pressure 97/57 L [Right side Standing] Blood Pressure 102/58 L [Right side Supine] Blood Pressure [Sitting] Blood Pressure [Standing] Blood Pressure [Supine] O2 Sat by Pulse 96 96 96 Oximetry (%) 02/02/19 02/03/19 02/03/19 18:55 08:00 08:32 Temperature 97.6 F 97.8 F Pulse Rate 75 92 H Pulse Rate [ Apical] Pulse Rate [ Right side Sitting] Pulse Rate [ Right side Standing] Pulse Rate [ Right side Supine] Pulse Rate [ 87 Sitting] Pulse Rate [ 85 Standing] Pulse Rate [ 92 H Supine] Respiratory 19 18 18 Rate Blood Pressure 144/78 120/61 Blood Pressure [Right Arm] Blood Pressure [Right side Sitting] Blood Pressure [Right side Standing] Blood Pressure [Right side Supine] Blood Pressure 136/72 [Sitting] Blood Pressure 132/69 [Standing] Blood Pressure 120/61 [Supine] O2 Sat by Pulse 97 Oximetry (%) GENERAL: Awake, alert, and fully oriented, in no acute distress. HEENT: Normocephalic, atraumatic. PERRL, EOMI. Moist mucous membranes. LUNGS: Breath sounds equal, clear to auscultation bilaterally. No wheezes, and no crackles. No accessory muscle use. HEART: Regular rate and rhythm, normal S1 and S2 without murmur, rub or gallop. ABDOMEN: Soft, nontender, not distended. Normoactive bowel sounds, no guarding, no rebound tenderness. EXTREMITIES: 2+ pulses, warm, well-perfused. No peripheral edema bilaterally. NEUROLOGICAL: Cranial nerves II-XII intact. Normal speech. No gross focal deficits. PSYCHIATRIC: Cooperative. Appropriate mood and affect. SKIN: Warm, dry. Laboratory Results - last 24 hr 02/03/19 02/03/19 07:20 07:20 Sodium 128 L Potassium 4.2 Chloride 94 L Carbon Dioxide 25 Anion Gap 10 BUN 19.6 H Creatinine 1.0 Est GFR (CKD-EPI)AfAm 77.00 Est GFR (CKD-EPI)NonAf 66.43 Random Glucose 90 Calcium 9.1 B-Natriuretic Peptide 236.1 Triglycerides 77 Cholesterol 173 Total LDL Cholesterol 71 HDL Cholesterol 91 H Active Medications Generic Name Dose Route Start Last Admin Trade Name Freq PRN Reason Stop Dose Admin Aspirin 81 mg 02/02/19 10:00 02/03/19 09:14 Asa - PO 81 mg DAILY ANA M Administration Atorvastatin Calcium 10 mg 02/01/19 22:00 02/02/19 22:24 Lipitor - PO 10 mg HS ANA M Administration Budesonide/Formoterol Fumarate 2 puff 02/01/19 22:00 02/03/19 09:14 Symbicort 160/4.5mcg - IH 2 puff BID ANA M Administration Gabapentin 300 mg 02/01/19 22:00 02/03/19 09:14 Neurontin - PO 300 mg BID ANA M Administration Montelukast Sodium 10 mg 02/01/19 22:00 02/02/19 22:24 Singulair - PO 10 mg HS ANA M Administration Pantoprazole Sodium 40 mg 02/02/19 10:00 02/03/19 09:14 Protonix - PO 40 mg DAILY ANA M Administration Tiotropium [place] 2 puff 02/02/19 10:00 02/03/19 09:14 Spiriva Respimat IH 2 puff DAILY ANA M Administration ASSESSMENT/PLAN: Patient is an 88 year old male with history of COPD (on home oxygen), Afib (not on anticoagulation), HFpEF (ECHO 02/13 with normal EF), hypertension, hyperlipidemia, hypothyroidism, interstitial lung disease, presented with complaint of chest pressure and wheezing, with associated lightheadedness, dizziness. Moderate Hyponatremia -Patient appears euvolemic upon exam. Sodium gradually improving; today is 128. Noted to be chronically mild -moderate hyponatremic upon past admissions with values ranging 124- 134mmol/ L. -Obtain serum osmolality, urine osmolality, and urine sodium; will evaluate for SIADH. -Fluid restriction 1 liter -NO indication for hypertonic saline, or any agressive correction. Goal for sodium correction NOT to exceed 4- 6mmol/ L within 24 hours. Disposition: We will continue to follow the patient. Thank you for this consultative opportunity. Visit type - Emergency Visit Emergency Visit: Yes ED Registration Date: 02/01/19 Care time: The patient presented to the Emergency Department on the above date and was hospitalized for further evaluation of their emergent condition. - New Patient This patient is new to me today: Yes Date on this admission: 02/03/19 - Critical Care Critical Care patient: No ATTENDING PHYSICIAN STATEMENT I saw and evaluated the patient. I reviewed the resident's note and discussed the case with the resident. I agree with the resident's findings and plan as documented. SUBJECTIVE: OBJECTIVE: ASSESSMENT AND PLAN:
--- NOTE | 2019-02-03 15:54 | PN ---
Teaching Attending Note Name of Resident: Clem Merino (Nephrology) ATTENDING PHYSICIAN STATEMENT I saw and evaluated the patient. I reviewed the resident's note and discussed the case with the resident. I agree with the resident's findings and plan as documented. Renal Pt is an 88 year old male with pmhx of copd, a-fib, htn, hld, and interstial lung disease who presented with chest pain and wheeze. I was called to evaluate him for hyponatermia. He has history of hyponatremia. He says thathe drinks at least 8 glasses of water per day and he was taking 40 mg of furosemide daily. phx copd afib hyponatremia hypothyroidims ILD nkda social hx denies fam hx non contrib ros neg Current Medications Generic Name Dose Route Start Last Admin Trade Name Freq PRN Reason Stop Dose Admin Aspirin 81 mg 02/02/19 10:00 02/03/19 09:14 Asa - PO 81 mg DAILY ANA M Administration Atorvastatin Calcium 10 mg 02/01/19 22:00 02/02/19 22:24 Lipitor - PO 10 mg HS ANA M Administration Budesonide/Formoterol Fumarate 2 puff 02/01/19 22:00 02/03/19 09:14 Symbicort 160/4.5mcg - IH 2 puff BID ANA M Administration Gabapentin 300 mg 02/01/19 22:00 02/03/19 09:14 Neurontin - PO 300 mg BID ANA M Administration Montelukast Sodium 10 mg 02/01/19 22:00 02/02/19 22:24 Singulair - PO 10 mg HS ANA M Administration Pantoprazole Sodium 40 mg 02/02/19 10:00 02/03/19 09:14 Protonix - PO 40 mg DAILY ANA M Administration Tiotropium [place] 2 puff 02/02/19 10:00 02/03/19 09:14 Spiriva Respimat IH 2 puff DAILY ANA M Administration Laboratory Tests 06/10/18 06/13/18 02/01/19 11:00 19:00 15:15 Sodium 129 L 134 L 124 L Serum Osmolality 02/02/19 02/03/19 02/03/19 05:38 07:20 14:20 Sodium 127 L 128 L Serum Osmolality 273 L Last Vital Signs Temp Pulse Resp BP Pulse Ox 97.8 F 81 18 118/55 L 97 02/03/19 14:58 02/03/19 14:58 02/03/19 14:58 02/03/19 14:58 02/03/19 08:00 cardio s1s2 pulm clear GI soft ext neg edema neuro aaox3 skin neg rash Impression 1. hyponatremia 2. copd 3. a-fib 4. ILD 5. hypothyroidism Plan - hold lasix - restrict free water - check urine osm and urine sodium - pt is euvolemic
[2019-02-03] MEDS: ATORVASTATIN CA 10 MG TABLET (FP) PO SCH (22:09)
[2019-02-03] MEDS: MONTELUKAST NA 10 MG TABLET PO SCH (22:09)
[2019-02-04 09:42] LABS: BLOOD UREA NITROGEN 24.7 mg/dL (7-18); CALCIUM 9.1 mg/dL (8.5-10.1); CREATININE 0.9 mg/dL (0.55-1.3); POTASSIUM 4.3 mmol/L (3.5-5.1)
[2019-02-04] MEDS ORDERED: REGADENOSON 0.4 MG/5 ML PRE-FILLED SYRINGE IVPUSH ONE ×2 (09:45→10:29)
--- NOTE | 2019-02-04 11:06 | PN ---
Progress Note (short form) - Note Progress Note: Resting in NAD on RA. Denies CP or SOB. Minimal dry cough. No acute events overnight. Intake & Output 02/01/19 02/02/19 02/03/19 02/04/19 23:59 23:59 23:59 23:59 Intake Total 240 970 Balance 240 970 Weight 142 lb 141 lb 1.6 oz 141 lb 140 lb 8 oz Last Vital Signs Temp Pulse Resp BP Pulse Ox 97.9 F 60 20 144/75 97 02/04/19 09:00 02/04/19 09:00 02/04/19 09:00 02/04/19 09:00 02/04/19 00:00 Active Medications Aspirin (Asa -) 81 mg PO DAILY [facility] Last Admin: 02/03/19 09:14 Dose: 81 mg Atorvastatin Calcium (Lipitor -) 10 mg PO [facility] Last Admin: 02/03/19 22:09 Dose: 10 mg Budesonide/Formoterol Fumarate (Symbicort 160/4.5mcg -) 2 puff IH BID [facility] Last Admin: 02/03/19 22:10 Dose: 2 puff Gabapentin (Neurontin -) 300 mg PO BID [facility] Last Admin: 02/03/19 22:09 Dose: 300 mg Montelukast Sodium (Singulair -) 10 mg PO HS [facility] Last Admin: 02/03/19 22:09 Dose: 10 mg Pantoprazole Sodium (Protonix -) 40 mg PO DAILY [facility] Last Admin: 02/03/19 09:14 Dose: 40 mg Tiotropium [place] (Spiriva Respimat) 2 puff IH DAILY [facility] Last Admin: 02/03/19 09:14 Dose: 2 puff Constitutional: Yes: No Distress, Thin Eyes: Yes: Conjunctiva Clear, EOM Intact HENT: Yes: Atraumatic, Normocephalic Neck: Yes: Supple, Trachea Midline Cardiovascular: Yes: Regular Rate and Rhythm Respiratory: Yes: Cough, Diminished, Rhonchi. No: Accessory Muscle Use, Rales, SOB, SOB on Exertion, Stridor, Tachypnea, Wheezes ...Inspection: Yes: WNL ...Clubbing: No Gastrointestinal: Yes: Normal Bowel Sounds, Soft Renal/: Yes: WNL Musculoskeletal: Yes: WNL Extremities: Yes: WNL Edema: No Peripheral Pulses WNL: Yes Integumentary: Yes: WNL Neurological: Yes: WNL, Alert, Oriented ...Motor Strength: WNL Psychiatric: Yes: WNL, Alert, Oriented Labs: Laboratory Results - last 24 hr 02/03/19 02/03/19 02/03/19 14:20 16:00 16:00 Sodium Potassium Chloride Carbon Dioxide Anion Gap BUN Creatinine Est GFR (CKD-EPI)AfAm Est GFR (CKD-EPI)NonAf Random Glucose Serum Osmolality 273 L Calcium Urine Osmolality 462 Ur Random Sodium 36 L 02/04/19 07:45 Sodium 131 L Potassium 4.3 Chloride 98 Carbon Dioxide 24 Anion Gap 10 BUN 24.7 H Creatinine 0.9 Est GFR (CKD-EPI)AfAm 87.46 Est GFR (CKD-EPI)NonAf 75.46 Random Glucose 81 Serum Osmolality Calcium 9.1 Urine Osmolality Ur Random Sodium Problem List - Problems (1) Emphysema of lung Code(s): J43.9 - EMPHYSEMA, UNSPECIFIED (2) Chest pain Code(s): R07.9 - CHEST PAIN, UNSPECIFIED Qualifiers: Chest pain type: unspecified Qualified Code(s): R07.9 - Chest pain, unspecified (3) Hyponatremia Code(s): E87.1 - HYPO-OSMOLALITY AND HYPONATREMIA (4) Interstitial lung disease Code(s): J84.9 - INTERSTITIAL PULMONARY DISEASE, UNSPECIFIED (5) CHF (congestive heart failure) Code(s): I50.9 - HEART FAILURE, UNSPECIFIED (6) COPD exacerbation Code(s): J44.1 - CHRONIC OBSTRUCTIVE PULMONARY DISEASE W (ACUTE) EXACERBATION (7) HTN (hypertension) Code(s): I10 - ESSENTIAL (PRIMARY) HYPERTENSION (8) History of permanent cardiac pacemaker placement Code(s): Z95.0 - PRESENCE OF CARDIAC PACEMAKER Assessment/Plan COPD: currently stable Do not suspect respiratory tract infection PLAN: O2 as needed Monitor off ABX No indication for systemic steroids Symbicort BID Spiriva OD Singulair OD There is no Pulmonary contraindication for DC home Dr Santana Problem List - Problems (1) Emphysema of lung Code(s): J43.9 - EMPHYSEMA, UNSPECIFIED (2) Chest pain Code(s): R07.9 - CHEST PAIN, UNSPECIFIED Qualifiers: Chest pain type: unspecified Qualified Code(s): R07.9 - Chest pain, unspecified (3) Hyponatremia Code(s): E87.1 - HYPO-OSMOLALITY AND HYPONATREMIA (4) Interstitial lung disease Code(s): J84.9 - INTERSTITIAL PULMONARY DISEASE, UNSPECIFIED (5) CHF (congestive heart failure) Code(s): I50.9 - HEART FAILURE, UNSPECIFIED (6) COPD exacerbation Code(s): J44.1 - CHRONIC OBSTRUCTIVE PULMONARY DISEASE W (ACUTE) EXACERBATION (7) HTN (hypertension) Code(s): I10 - ESSENTIAL (PRIMARY) HYPERTENSION (8) History of permanent cardiac pacemaker placement Code(s): Z95.0 - PRESENCE OF CARDIAC PACEMAKER
[2019-02-04] MEDS: TIOTROPIUM BROMIDE 2.5 MCG (SPIRIVA) RESPIMAT INHALER IH SCH (12:23)
[2019-02-04] MEDS: BUDESONIDE/FORMETEROL FUMARATE 160/4.5 mcg INHALER IH SCH (12:24)
[2019-02-04] MEDS: GABAPENTIN 300 MG CAPSULE (FP) PO SCH (12:25)
[2019-02-04] MEDS: PANTOPRAZOLE 40 MG TABLET (FP) PO SCH (12:25)
[2019-02-04] MEDS: ASPIRIN 81 MG CHEWABLE TABLETS PO SCH (12:25)
--- NOTE | 2019-02-04 12:30 | PN ---
Progress Note, Physician Chief Complaint: Stress test no ischemia Seen/ examined post stress History of Present Illness: no CP or SOB - Current Medication List Current Medications: Active Medications Aspirin (Asa -) 81 mg PO DAILY [facility] Last Admin: 02/04/19 12:25 Dose: 81 mg Atorvastatin Calcium (Lipitor -) 10 mg PO HS [facility] Last Admin: 02/03/19 22:09 Dose: 10 mg Budesonide/Formoterol Fumarate (Symbicort 160/4.5mcg -) 2 puff IH BID [facility] Last Admin: 02/04/19 12:24 Dose: 2 puff Gabapentin (Neurontin -) 300 mg PO BID [facility] Last Admin: 02/04/19 12:25 Dose: 300 mg Montelukast Sodium (Singulair -) 10 mg PO HS [facility] Last Admin: 02/03/19 22:09 Dose: 10 mg Pantoprazole Sodium (Protonix -) 40 mg PO DAILY [facility] Last Admin: 02/04/19 12:25 Dose: 40 mg Tiotropium [place] (Spiriva Respimat) 2 puff IH DAILY [facility] Last Admin: 02/04/19 12:23 Dose: 2 puff - Objective Vital Signs: Vital Signs Temperature 97.9 F 02/04/19 09:00 Pulse Rate 60 02/04/19 09:00 Respiratory Rate 20 02/04/19 09:00 Blood Pressure 144/75 02/04/19 09:00 O2 Sat by Pulse Oximetry (%) 97 02/04/19 00:00 Constitutional: Yes: No Distress Cardiovascular: Yes: Regular Rate and Rhythm Respiratory: Yes: Rhonchi Gastrointestinal: Yes: Soft (nt) Edema: No Peripheral Pulses WNL: Yes Neurological: Yes: Alert, Oriented Psychiatric: Yes: WNL Labs: CBC, BMP 02/02/19 05:38 02/04/19 07:45 INR, PTT INR 1.06 (0.83-1.09) 02/01/19 15:15 Assessment/Plan Assessment/Plan This is a 88 y/o man with a PMHx of COPD (O2, prn), Afib (no AC) s/p Tiona Sci PPM, chronic diastolic CHF, HTN, HLD, GERD, Hypothyroidism, Former Smoker, ILD who presents to for evaluation of dizziness and chest pain. Found to be hyponatremic. REC: Hyponatremia: -Does not appear volume overloaded -Recent echo with normal LVEF and only mild -improving gradually, tx as per pmd Dizziness: -Possibly due to hyponatremia -orthostatic BPs here unremarkable -PPM seems to be functioning well on ECG, apparently stable interrogation with EP 10/14 -will review Tiona Sci interrogation. Chest pain: -Cardiac enzymes negative x 3, no acute ECG changes. -f/u echo results -Nuclear stress test today no ischemia. ILD/COPD: -as per PMD Hx of AF: -Cont home meds -f/u with EP as doing Chronic diastolic CHF: euvolemic now Mild : No intervention required, serial echo f/u every 1-2 years
--- NOTE | 2019-02-04 13:00 | DS ---
Physical Examination Vital Signs: Vital Signs Temperature 97.9 F 02/04/19 09:00 Pulse Rate 60 02/04/19 09:00 Respiratory Rate 20 02/04/19 09:00 Blood Pressure 144/75 02/04/19 09:00 O2 Sat by Pulse Oximetry (%) 98 02/04/19 09:00 Constitutional: Yes: No Distress, Calm Cardiovascular: Yes: Regular Rate and Rhythm Respiratory: Yes: CTA Bilaterally Gastrointestinal: Yes: Normal Bowel Sounds, Soft. No: Palpable Mass, Tenderness Labs: CBC, BMP 02/02/19 05:38 02/04/19 07:45 Discharge Summary Problems reviewed: Yes Reason For Visit: CHEST PAIN HYPONATREMIA INTERSTITIAL LUNG DISEASE Current Active Problems Chest pain (Acute) Chronic hyponatremia (Acute) Emphysema of lung (Acute) Hyponatremia (Acute) Interstitial lung disease (Acute) Hospital Course: ADMISSION - Primary Care Physician PCP: Carl Ovalles - Admission Chief Complaint: Chest Pressure History of Present Illness: This is a 88 y/o man with a PMHx of COPD (O2, prn), Afib (no AC), CHF, HTN, HLD , GERD, Hypothyroidism, Former Smoker. Who presents to the ED with his granddaughter for chest pressure and wheezing. Patient is [place] speaking, his granddaughter was at the bedside, and translated. The patient reports while attempting to make breakfast this morning, he was standing at the stove, when he became lightheaded, dizzy and had midsternal non-radiating chest pressure. Patient also reports having right flank x 3-4 days ago. Per the granddaughter the patient had an Echo 2 days ago as well as a Lung scan and an upcoming appointment with the Life Consultant to discuss the scan results. Patient denies fever, chills, cough, GARNER, palpitations, AP, N/V/D, constipation, dysuria. Patient denies recent travel or sick contact exposures. Hospital course Seen by cardiology , Renal Sodium better after dc lasix-->131 Pt underwent stress test today-- no ischemia Echo on 01/30-- normal LV function pacemaker interogated-- battery ok ACS ruled out with serial cardiac enzymes follow up with Cardiology and Renal as outpt Condition: Good - Instructions Referrals: Stew Marie MD [Staff Physician] - Carl Ovalles MD [Primary Care Provider] - Kimmy Velasquez MD [Staff Physician] - Disposition: HOME - Home Medications Comprehensive Discharge Medication List: Ambulatory Orders Albuterol Sulfate Inhaler - [Ventolin HFA Inhaler -] 1 - 2 inh PO QID 06/10/18 Cetirizine HCl 10 mg PO DAILY 06/10/18 Fluticasone Prop 0.05% Nasal [Flonase -] 1 - 2 spray NS DAILY 06/10/18 Fluticasone Propion/Salmeterol [Wixela 500-50 Inhub] 1 each IH DAILY 06/10/18 Furosemide [Lasix] 40 mg PO DAILY 06/10/18 Gabapentin 300 mg PO BID 06/10/18 Linaclotide [Linzess] 145 mcg PO DAILY 06/10/18 Montelukast Na [Singulair -] 10 mg PO HS 06/10/18 Omeprazole 40 mg PO DAILY 06/10/18 Simvastatin 20 mg PO DAILY 06/10/18 Umeclidinium [place] [Incruse Ellipta] 62.5 mcg IH DAILY 06/10/18 Valsartan 0 mg PO DAILY 02/01/19
[2019-02-04 13:49] VITALS: BP 138/71; PULSE 77; TEMP 98.6
--- NOTE | 2019-02-04 16:34 | PN ---
Progress Note, Physician History of Present Illness: Pt seen and examined at bedside. He is awake and alert. He denies shortness of breath. - Objective Vital Signs: Vital Signs Temperature 98.6 F 02/04/19 13:44 Pulse Rate 77 02/04/19 13:44 Respiratory Rate 20 02/04/19 13:44 Blood Pressure 138/71 02/04/19 13:44 O2 Sat by Pulse Oximetry (%) 98 02/04/19 09:00 Constitutional: Yes: Calm Eyes: Yes: Conjunctiva Clear HENT: Yes: Atraumatic Cardiovascular: Yes: S1, S2 Respiratory: Yes: CTA Bilaterally Gastrointestinal: Yes: Soft Genitourinary: Yes: WNL Musculoskeletal: Yes: WNL Edema: No Neurological: Yes: Oriented Psychiatric: Yes: Oriented Labs: CBC, BMP 02/02/19 05:38 02/04/19 07:45 INR, PTT INR 1.06 (0.83-1.09) 02/01/19 15:15 Assessment/Plan Laboratory Tests 02/03/19 02/03/19 16:00 16:00 Urine Osmolality 462 Ur Random Sodium 36 L Impression 1. hyponatremia 2. copd 3. a-fib 4. ILD 5. hypothyroidism Plan - volume status has been stable off of lasix - sodium is improving - restrict free water - will need outpt follow up - pt is euvolemic
== END 2019-02-04 15:42 | disposition home or self-care (01) ==
LOC: JER 14:25 → JERBED 17:40 → J6S 02-02 18:31
PROVIDERS: ADMIT Internal Medicine; ATTEND Internal Medicine
PROC: 3E033GC Introduction of Other Therapeutic Substance into Peripheral Vein, Percutaneous Approach (ICD-10-PCS; principal; 2019-02-01)
PROC: 3E0337Z Introduction of Electrolytic and Water Balance Substance into Peripheral Vein, Percutaneous Approach (ICD-10-PCS; 2019-02-01)
PROC: 3E0F7GC Introduction of Other Therapeutic Substance into Respiratory Tract, Via Natural or Artificial Opening (ICD-10-PCS; 2019-02-01)
DX: R07.89 Other chest pain (principal); E87.1 Hypo-osmolality and hyponatremia; J84.9 Interstitial pulmonary disease, unspecified; J43.9 Emphysema, unspecified; R42 Dizziness and giddiness; I11.0 Hypertensive heart disease with heart failure; I25.10 Atherosclerotic heart disease of native coronary artery without angina pectoris; I50.9 Heart failure, unspecified; I48.91 Unspecified atrial fibrillation; E78.5 Hyperlipidemia, unspecified; E03.9 Hypothyroidism, unspecified; K21.9 Gastro-esophageal reflux disease without esophagitis; K58.9 Irritable bowel syndrome, unspecified; Z95.0 Presence of cardiac pacemaker; Z87.891 Personal history of nicotine dependence; Z99.81 Dependence on supplemental oxygen
CPT/HCPCS: 36415; 71045-TC-FY; 78452-TC; 80048; 80053; 80061; 82550; 82553; 83690; 83721; 83735; 83880; 83930; 83935; 84100; 84300; 84443; 84484; 85025; 85610; 85730; 93005; 93010; 93017; 94640; 96374; 99285-25; A9502; G0378; J2785